=== PATIENT | male | born 2000 | race Hispanic/Latino ===

== ENCOUNTER 2019-06-02 12:08 | Emergency (ER) | payer OTHER ==
[2019-06-02] MEDS ORDERED: ONDANSETRON 4 MG/2 ML VIAL ONE (12:27)
[2019-06-02] MEDS ORDERED: MORPHINE 2 MG/ML SYR ONE (12:27)
[2019-06-02] MEDS ORDERED: NA CHLORIDE 0.9% 1,000 ML ONE (12:27)
[2019-06-02 12:43] LABS: Absolute Lymphocytes (CBC) 1.1 K/uL (0.7-4.9); Basophils % 0.4 % (0-1.3); Hematocrit 46.6 % (39.6-49.0); Lymphocytes % 8.5 % (15.3-44.8); MPV 9.1 fL (7.6-11.3); RBC Red Blood Cell Count 4.87 M/uL (4.33-5.43)
[2019-06-02 13:06] LABS: ALT/SGPT 76 U/L (12-78); AST/SGOT 30 U/L (15-37); Alkaline Phosphatase 88 U/L (45-117); BUN Blood Urea Nitrogen 12 mg/dL (7-18); Bicarbonate 29 mmol/L (21-32); Bilirubin Direct 0.1 mg/dL (0-0.2); Bilirubin Total 0.5 mg/dL (0.2-1.0); Glucose Level 120 mg/dL (74-106); Lipase 83 U/L (73-393); Potassium 3.6 mmol/L (3.5-5.1); Protein, Total 7.6 g/dL (6.4-8.2); Sodium Level 140 mmol/L (136-145)
--- NOTE | 2019-06-02 15:11 | RAD REPORT ---
EXAM DESCRIPTION: CTAbdomen Pelvis W Contrast - 06/02/2019 3:04 pm CLINICAL HISTORY: Abdominal pain. rule out appendicitis COMPARISON: <Comparisons> TECHNIQUE: Biphasic CT imaging of the abdomen and pelvis was performed with 100 ml non-ionic IV cont rast. All CT scans are performed using dose optimization technique as appropriate and may include automated exposure control or mA/KV adjustment according to patient size. FINDINGS: The lung bases are clear. The liver, spleen, pancreas, adrenal glands and kidneys are within normal limits. No bowel obstruction, free air, free fluid or abscess. The appendix is normal. No evidence of signi ficant lymphadenopathy. No suspicious bony findings. IMPRESSION: No acute intra-abdominal or pelvic finding.
--- NOTE | 2019-06-02 15:18 | ER ---
Nurse's Notes [facility] Name: Joe Steiner Age: 18 yrs Sex: Male : 2000 Arrival Date: 06/02/2019 Time: 12:09 Bed 20 Private MD: Diagnosis: Diarrhea, unspecified;Lower abdominal pain, unspecified;Enteritis Presentation: 06/02 12:12 Presenting complaint: Patient states: I woke up with bad abd pain this morning, reports la1 one episode of diahhrea. Transition of care: patient was not received from another setting of care. Onset of symptoms was June 02, 2019. Risk Assessment: Do you want to hurt yourself or someone else? Patient reports no desire to harm self or others. Initial Sepsis Screen: Does the patient meet any 2 criteria? No. Patient's initial sepsis screen is negative. Does the patient have a suspected source of infection? No. Patient's initial sepsis screen is negative. Care prior to arrival: None. 12:12 Method Of Arrival: Wheelchair la1 12:12 Acuity: OPAL 3 la1 Historical: - Allergies: 12:12 No Known Allergies; la1 - PMHx: 12:12 Asthma; la1 - PSHx: 12:12 None; la1 - Immunization history:: Adult Immunizations up to date. - Social history:: Smoking status: Patient/guardian denies using tobacco. - Ebola Screening: : No symptoms or risks identified at this time. - Family history:: not pertinent. - Hospitalizations: : No recent hospitalization is reported. Screenin:30 Abuse screen: Denies threats or abuse. Denies injuries from another. Nutritional sv screening: No deficits noted. Tuberculosis screening: No symptoms or risk factors identified. Fall Risk None identified. Assessment: 12:25 General: Appears in no apparent distress. uncomfortable, slender, well groomed, well sv developed, Behavior is calm, cooperative, appropriate for age. Pain: Complains of pain in umbilical area and suprapubic area Pain does not radiate. Pain currently is 7 out of 10 on a pain scale. Quality of pain is described as sharp, Pain began this morning Is intermittent. Neuro: Level of Consciousness is awake, alert, obeys commands, Oriented to person, place, time, situation, Moves all extremities. Full function Speech is normal. Respiratory: Airway is patent Respiratory effort is even, unlabored, Respiratory pattern is regular, symmetrical. GI: Abdomen is flat, non-distended, Abd is soft X 4 quads Reports diarrhea. Derm: Skin is intact, Skin is pale. 13:44 Reassessment: Patient appears in no apparent distress at this time. Patient and/or sv family updated on plan of care and expected duration. Pain level reassessed. Patient is alert, oriented x 3, equal unlabored respirations, skin warm/dry/pink. Patient denies pain at this time. Patient states feeling better. Patient states symptoms have improved. 15:25 Reassessment: Patient appears in no apparent distress at this time. Patient and/or sv family updated on plan of care and expected duration. Pain level reassessed. Patient is alert, oriented x 3, equal unlabored respirations, skin warm/dry/pink. Patient denies pain at this time. Patient states feeling better. Patient states symptoms have improved. Vital Signs: 12:12 BP 139 / 92; Pulse 95; Resp 16; Temp 97.8; Pulse Ox 98% on R/A; Weight 63.5 kg; Pain la1 10; 12:45 BP 114 / 70; Pulse 64; Resp 16; Pulse Ox 100% on R/A; sv 13:43 BP 109 / 77; Pulse 88; Resp 16; Pulse Ox 99% ; sv 14:27 BP 101 / 67; Pulse 75; Resp 18; Pulse Ox 96% ; sv ED Course: 12:09 Patient arrived in ED. as 12:12 Triage completed. la1 12:13 Lobo Barrett MD is Attending Physician. rn 12:13 Arm band placed on right wrist. la1 12:22 Carmela Nunez, RADHA is Primary Nurse. sv 12:30 Patient has correct armband on for positive identification. Bed in low position. Call sv light in reach. Adult w/ patient. Pulse ox on. NIBP on. Door closed. Warm blanket given. Head of bed elevated. 12:30 Initial lab(s) drawn, by me, sent to lab. Inserted saline lock: 20 gauge in right sv antecubital area, using aseptic technique. Blood collected. Flushed right antecubital with 5 ml normal saline. 12:56 EKG done, by cardiopulmonary technologist. reviewed by Lobo Barrett MD. sm3 13:[address] Scan. sv 15:06 Patient moved back from CT. sv 15:26 No provider procedures requiring assistance completed. IV discontinued, intact, sv bleeding controlled, No redness/swelling at site. Pressure dressing applied. Administered Medications: 12:33 Drug: Zofran 4 mg Route: IVP; Site: right antecubital; sv 13:44 Follow up: Response: No adverse reaction sv 12:33 Drug: NS 0.9% 1000 ml Route: IV; Rate: 1000 ml; Site: right antecubital; sv 13:44 Follow up: Response: No adverse reaction; IV Status: Completed infusion; IV Intake: sv 1000ml 12:35 Drug: morphine 2 mg {Note: RASS 0.} Route: IVP; Site: right antecubital; sv 13:44 Follow up: Response: No adverse reaction; No change in condition; Pain is decreased; sv RASS: Alert and Calm (0) Intake: 12:58 PO: 500ml (Contrast); Total: 500ml. sv 13:44 IV: 1000ml; Total: 1500ml. sv 12:58 Called and informed Ramonita in CT pt finished contrast. sv Outcome: 15:17 Discharge ordered by . rn 15:26 Discharged to home ambulatory, with family. sv 15:26 Condition: stable 15:26 Discharge instructions given to patient, family, Instructed on discharge instructions, follow up and referral plans. medication usage, Demonstrated understanding of instructions, follow-up care, medications, Prescriptions given X 1. 15:27 Patient left the ED. sv Signatures: Carmela Nunez RN RN sv Martinez, Amelia as Nieto, Roman, MD MD rn Attema, Lee, RN RN la1 Montes, Shakira 3 Corrections: (The following items were deleted from the chart) 13:11 12:35 morphine 2 mg IVP in right antecubital sv sv
--- NOTE | 2019-06-02 15:19 | EDPHYS ---
Physician Documentation [facility] Name: Joe Steiner Age: 18 yrs Sex: Male : 2000 Arrival Date: 06/02/2019 Time: 12:09 Bed 20 Private MD: ED Physician Lobo Barrett HPI: 06/02 12:21 This 18 yrs old Male presents to ER via Wheelchair with complaints of rn Abdominal Pain. 12:21 The patient presents with abdominal pain in the periumbilical area. Onset: The rn symptoms/episode began/occurred this morning. The symptoms do not radiate. Associated signs and symptoms: Pertinent positives: diarrhea, Pertinent negatives: blood in stools, chest pain, constipation, fever, hematuria, shortness of breath, testicular pain. The symptoms are described as intermittent, sharp. Modifying factors: The symptoms are alleviated by nothing, the symptoms are aggravated by movement, touching the area. Severity of pain: At its worst the pain was moderate in the emergency department the pain is unchanged. The patient has not experienced similar symptoms in the past. The patient has not recently seen a physician. Historical: - Allergies: 12:12 No Known Allergies; la1 - PMHx: 12:12 Asthma; la1 - PSHx: 12:12 None; la1 - Immunization history:: Adult Immunizations up to date. - Social history:: Smoking status: Patient/guardian denies using tobacco. - Ebola Screening: : No symptoms or risks identified at this time. - Family history:: not pertinent. - Hospitalizations: : No recent hospitalization is reported. ROS: 12:21 Constitutional: Negative for fever, chills, and weight loss, Eyes: Negative for injury, rn pain, redness, and discharge, Cardiovascular: Negative for chest pain, palpitations, and edema, Respiratory: Negative for shortness of breath, cough, wheezing, and pleuritic chest pain, Abdomen/GI: + abd pain and diarrhea, negative for blood in stool Back: Negative for injury and pain, : Negative for injury, bleeding, discharge, and swelling, MS/Extremity: Negative for injury and deformity, Skin: Negative for injury, rash, and discoloration, Neuro: Negative for headache, weakness, numbness, tingling, and seizure. Exam: 12:21 Constitutional: This is a well developed, well nourished patient who is awake, alert, rn appears in pain, holding mid abdomen. Head/Face: Normocephalic, atraumatic. Eyes: Pupils equal round and reactive to light, extra-ocular motions intact. Lids and lashes normal. Conjunctiva and sclera are non-icteric and not injected. Cornea within normal limits. Periorbital areas with no swelling, redness, or edema. ENT: MMM Cardiovascular: Regular rate and rhythm. No pulse deficits. Respiratory: No increased work of breathing, no retractions or nasal flaring. Abdomen/GI: soft, + periumbilical tenderness, no rebound, no peritoneal signs. Skin: Warm, dry with normal turgor. Normal color with no rashes, no lesions, and no evidence of cellulitis. MS/ Extremity: Pulses equal, no cyanosis. Neurovascular intact. Full, normal range of motion. Equal circumference. Neuro: Awake and alert, GCS 15 Vital Signs: 12:12 BP 139 / 92; Pulse 95; Resp 16; Temp 97.8; Pulse Ox 98% on R/A; Weight 63.5 kg; Pain la1 7/10; 12:45 BP 114 / 70; Pulse 64; Resp 16; Pulse Ox 100% on R/A; sv 13:43 BP 109 / 77; Pulse 88; Resp 16; Pulse Ox 99% ; sv 14:27 BP 101 / 67; Pulse 75; Resp 18; Pulse Ox 96% ; sv MDM: 12:13 Patient medically screened. rn 15:16 Differential diagnosis: appendicitis, diverticulitis, enteritis. Data reviewed: vital rn signs, nurses notes, lab test result(s), radiologic studies, CT scan, and as a result, I will discharge patient. Counseling: I had a detailed discussion with the patient and/or guardian regarding: the historical points, exam findings, and any diagnostic results supporting the discharge/admit diagnosis, lab results, radiology results, the need for outpatient follow up, to return to the emergency department if symptoms worsen or persist or if there are any questions or concerns that arise at home. Response to treatment: the patient's symptoms have markedly improved after treatment, and as a result, I will discharge patient. Special discussion: Based on the patient's Hx, exam, and Dx evaluation, there is no indication for emergent surgery or inpatient Tx. It is understood by the patient/guardian that if the Sx's persist or worsen they need to return immediately for re-evaluation. I discussed with the patient/guardian in detail that at this point there is no indication for admission to the hospital. It is understood, however, that if the symptoms persist or worsen the patient needs to return immediately for re-evaluation. ED course: CT abdomen neg for appendicitis, will dc home with pcp f/u and zofran prn as likely beginning of enteritis.. 06/02 12:21 Order name: Basic Metabolic Panel; Complete Time: 13:16 rn 06/02 12:21 Order name: CBC with Diff; Complete Time: 13:16 rn 06/02 12:21 Order name: Hepatic Function; Complete Time: 13:16 rn 06/02 12:21 Order name: Lipase; Complete Time: 13:16 rn 06/02 12:21 Order name: CT Abd/Pelvis - PO and IV Contrast rn 06/02 12:21 Order name: IV Saline Lock; Complete Time: 12:36 rn 06/02 12:21 Order name: Labs collected and sent; Complete Time: 12:36 rn 06/02 12:29 Order name: EKG; Complete Time: 12:30 rn 06/02 12:29 Order name: EKG - Nurse/Tech; Complete Time: 13:03 rn Administered Medications: 12:33 Drug: Zofran 4 mg Route: IVP; Site: right antecubital; sv 13:44 Follow up: Response: No adverse reaction sv 12:33 Drug: NS 0.9% 1000 ml Route: IV; Rate: 1000 ml; Site: right antecubital; sv 13:44 Follow up: Response: No adverse reaction; IV Status: Completed infusion; IV Intake: sv 1000ml 12:35 Drug: morphine 2 mg {Note: RASS 0.} Route: IVP; Site: right antecubital; sv 13:44 Follow up: Response: No adverse reaction; No change in condition; Pain is decreased; sv RASS: Alert and Calm (0) Disposition: 06/02/19 15:17 Discharged to Home. Impression: Diarrhea, unspecified, Lower abdominal pain, unspecified, Enteritis. - Condition is Stable. - Discharge Instructions: Abdominal Pain, Adult, Diarrhea, Adult, Viral Gastroenteritis, Adult. - Prescriptions for Zofran ODT 4 mg Oral tablet,disintegrating - place 1 tablet by TRANSLINGUAL route every 8 hours As needed; 20 tablet. - Medication Reconciliation Form, Thank You Letter, Antibiotic Education, Prescription Opioid Use form. - Follow up: Private Physician; When: As needed; Reason: Recheck today's complaints, Re-evaluation by your physician. - Problem is new. - Symptoms have improved. Signatures: Dispatcher [employer] Carmela Raphael RN RN sv Nieto, Roman, MD MD rn Attema, Lee, RN RN la1 Corrections: (The following items were deleted from the chart) 15:27 15:17 06/02/2019 15:17 Discharged to Home. Impression: Diarrhea, unspecified; Lower sv abdominal pain, unspecified; Enteritis. Condition is Stable. Forms are Medication Reconciliation Form, Thank You Letter, Antibiotic Education, Prescription Opioid Use. Follow up: Private Physician; When: As needed; Reason: Recheck today's complaints, Re-evaluation by your physician. Problem is new. Symptoms have improved. rn
--- NOTE | 2019-06-02 15:59 | EKG ---
Test Date: 2019-06-02 Test Time: 12:44:01 Entry Level Lab Technician: ZA MEASUREMENT RESULTS: Intervals: Rate: 56 MO: 134 QRSD: 88 QT: 376 QTc: 362 [place]: P: -14 MO: 134 QRS: 76 T: 48 INTERPRETIVE STATEMENTS: Sinus bradycardia Otherwise normal ECG No previous ECG available for comparison Electronically Signed On 06-02-19 15:58:04 CDT by Erickson Matthews
== END 2019-06-02 15:27 | disposition home or self-care (01) ==
LOC: ER 12:08
DX: K52.9 Noninfective gastroenteritis and colitis, unspecified (principal)
CPT/HCPCS: 96361; 93005; 85025; 80048; 36415; 80076; 83690; 74177; 96375; 96374; Q9967; J2270; J7030; J2405

== ENCOUNTER 2020-07-15 10:49 | Emergency (ER) | payer OTHER ==
--- NOTE | 2020-07-15 11:49 | RAD REPORT ---
EXAM DESCRIPTION: CT - Head Brain Wo Cont - 07/15/2020 11:37 am CLINICAL HISTORY: Headache COMPARISON: None. TECHNIQUE: Computed axial tomography of the head was obtained. IV contrast was not requested. All CT scans are performed using dose optimization technique as appropriate and may include automated exposure control or mA/KV adjustment according to patient size. FINDINGS: An intracranial bleed is not seen . The ventricles are normal in caliber. No extra-axial fluid collection is noted. Fluid within the sinuses/ mastoids is not seen. IMPRESSION: No acute intracranial abnormality is seen. If patient's symptoms persist MRI of the bra in would be recommended.
[2020-07-15] MEDS ORDERED: DIPHENHYDRAMINE 50 MG/ML VIAL ONE (11:59)
[2020-07-15] MEDS ORDERED: METOCLOPRAMIDE 10 MG/2mL INJ ONE (11:59)
--- NOTE | 2020-07-15 12:20 | EDPHYS ---
Physician Documentation [facility] Name: Joe Steiner Age: 20 yrs Sex: Male : 2000 Arrival Date: 07/15/2020 Time: 10:57 Bed 13 Private MD: ED Physician Gerhard Potts HPI: 07/15 12:13 This 20 yrs old Male presents to ER via Wheelchair with complaints of jr8 Headache, Taste Blood in mouth. 12:13 The patient complains of pain to the forehead. The patient describes the headache as jr8 throbbing. Onset: The symptoms/episode began/occurred acutely, yesterday. Associated signs and symptoms: Pertinent positives: dizziness, taste disturbance . Severity of symptoms: At its worst the pain was moderate. The patient has not experienced similar symptoms in the past. The patient has not recently seen a physician. Historical: - Allergies: 11: No Known Allergies; ll1 - PMHx: 11: Asthma; ll1 - PSHx: 11: None; ll1 - Immunization history:: Flu vaccine is not up to date. - Social history:: Smoking status: Patient denies any tobacco usage or history of. Patient/guardian denies using alcohol, street drugs. ROS: 12:13 Eyes: Negative for injury, pain, redness, and discharge, Neck: Negative for injury, jr8 pain, and swelling, Cardiovascular: Negative for chest pain, palpitations, and edema, Respiratory: Negative for shortness of breath, wheezing, and pleuritic chest pain. Positive for cough Abdomen/GI: Negative for abdominal pain, nausea, vomiting, diarrhea, and constipation, Back: Negative for injury and pain. 12:13 MS/Extremity: Negative for injury and deformity, Skin: Negative for injury, rash, and discoloration, Neuro: Negative for headache, weakness, numbness, tingling, and seizure. 12:13 ENT: Positive for rhinorrhea. Exam: 12:13 Eyes: Pupils equal round and reactive to light, extra-ocular motions intact. Lids and jr8 lashes normal. Conjunctiva and sclera are non-icteric and not injected. Cornea within normal limits. Periorbital areas with no swelling, redness, or edema. ENT: Nares patent. No nasal discharge, no septal abnormalities noted. Tympanic membranes are normal and external auditory canals are clear. Oropharynx with no redness, swelling, or masses, exudates, or evidence of obstruction, uvula midline. Mucous membranes moist. Neck: Trachea midline, no thyromegaly or masses palpated, and no cervical lymphadenopathy. Supple, full range of motion without nuchal rigidity, or vertebral point tenderness. No Meningismus. Cardiovascular: Regular rate and rhythm with a normal S1 and S2. No gallops, murmurs, or rubs. Normal PMI, no JVD. No pulse deficits. Respiratory: Lungs have equal breath sounds bilaterally, clear to auscultation and percussion. No rales, rhonchi or wheezes noted. No increased work of breathing, no retractions or nasal flaring. Abdomen/GI: Soft, non-tender, with normal bowel sounds. No distension or tympany. No guarding or rebound. No evidence of tenderness throughout. Back: No spinal tenderness. No costovertebral tenderness. Full range of motion. Skin: Warm, dry with normal turgor. Normal color with no rashes, no lesions, and no evidence of cellulitis. MS/ Extremity: Pulses equal, no cyanosis. Neurovascular intact. Full, normal range of motion. Neuro: Awake and alert, GCS 15, oriented to person, place, time, and situation. Cranial nerves II-XII grossly intact. Motor strength 5/5 in all extremities. Sensory grossly intact. Cerebellar exam normal. Normal gait. Vital Signs: 10:59 Resp 17; Weight 65.77 kg; Pain 5/10; ll1 11:07 BP 115 / 85; Pulse 57; Resp 16; Temp 98.2; Pulse Ox 97% ; Pain 5/10; ll1 MDM: 11:06 Patient medically screened. jr8 12:13 Data reviewed: vital signs, nurses notes, radiologic studies, CT scan. Data jr8 interpreted: Pulse oximetry: on room air is 97 %. Interpretation: normal. Counseling: I had a detailed discussion with the patient and/or guardian regarding: the historical points, exam findings, and any diagnostic results supporting the discharge/admit diagnosis, radiology results, the need for outpatient follow up, a family practitioner, to return to the emergency department if symptoms worsen or persist or if there are any questions or concerns that arise at home. Response to treatment: the patient's symptoms have markedly improved after treatment. 07/15 11:15 Order name: COVID-19 jr8 07/15 11:15 Order name: CT Head Brain wo Cont; Complete Time: 11:53 jr8 07/15 11:15 Order name: IV; Complete Time: 11:31 8 Administered Medications: 11:56 Drug: Benadryl 12.5 mg Route: IVP; Site: right antecubital; ll1 11:57 Drug: Reglan 10 mg Route: IVP; Site: right antecubital; ll1 Disposition: 17:05 Co-signature as Attending Physician, Gerhard Potts MD I agree with the assessment and kdr plan of care. Disposition: 07/15/20 12:19 Discharged to Home. Impression: Migraine with aura. - Condition is Stable. - Discharge Instructions: Migraine Headache. - Work release form, Medication Reconciliation Form, Thank You Letter, Antibiotic Education, Prescription Opioid Use form. - Follow up: Private Physician; When: 2 - 3 days; Reason: Recheck today's complaints, Continuance of care, Re-evaluation by your physician. - Problem is new. - Symptoms have improved. Signatures: Dispatcher [employer] EDMS Gerhard Potts MD MD kdr Tati Sandhu RN RN iw Joseph Olmedo PA PA jr8 Julius Castellon RN RN ll1 Corrections: (The following items were deleted from the chart) 12:41 12:19 07/15/2020 12:19 Discharged to Home. Impression: Migraine with aura. Condition is iw Stable. Forms are Medication Reconciliation Form, Thank You Letter, Antibiotic Education, Prescription Opioid Use. Follow up: Private Physician; When: 2 - 3 days; Reason: Recheck today's complaints, Continuance of care, Re-evaluation by your physician. Problem is new. Symptoms have improved. jr8
--- NOTE | 2020-07-15 12:20 | ER ---
Nurse's Notes [facility] Name: Joe Steiner Age: 20 yrs Sex: Male : 2000 Arrival Date: 07/15/2020 Time: 10:57 Bed 13 Private MD: Diagnosis: Migraine with aura Presentation: 07/15 10:59 Chief complaint: Patient states: Taste of blood in mouth since yesterday. + WILL today. ll1 Chills. No N/V/D. Coronavirus screen: Client denies travel out of the [place] in the last 14 days. chills, diarrhea, fatigue, headache, runny nose, shaking with chills, Client presents with at least one sign or symptom that may indicate coronavirus-19. Standard/surgical mask placed on the client. Ebola Screen: Patient denies travel to an Ebola-affected area in the 21 days before illness onset. Initial Sepsis Screen: Does the patient meet any 2 criteria? No. Patient's initial sepsis screen is negative. Risk Assessment: Do you want to hurt yourself or someone else? Patient reports no desire to harm self or others. Onset of symptoms was July 14, 2020. 10:59 Method Of Arrival: Wheelchair ll1 10:59 Acuity: OPAL 4 ll1 11:05 Initial Sepsis Screen: Does the patient have a suspected source of infection? No. iw Patient's initial sepsis screen is negative. 11:27 Acuity: OPAL 3 iw Triage Assessment: 11:30 Headache History: The patient has had previous headaches and this one is similar to iw previous episodes. General: Appears in no apparent distress. Behavior is calm, cooperative. Pain: Complains of pain in forehead Pain currently is 5 out of 10 on a pain scale. Quality of pain is described as Pain began 2-3 days ago. Also complains of no other associated symptoms. Historical: - Allergies: 11:01 No Known Allergies; ll1 - PMHx: 11: Asthma; ll1 - PSHx: 11:01 None; ll1 - Immunization history:: Flu vaccine is not up to date. - Social history:: Smoking status: Patient denies any tobacco usage or history of. Patient/guardian denies using alcohol, street drugs. Screenin:40 Abuse screen: Denies threats or abuse. Denies injuries from another. Nutritional iw screening: No deficits noted. Tuberculosis screening: No symptoms or risk factors identified. Fall Risk None identified. Assessment: 11:30 General: Appears in no apparent distress. Behavior is calm, cooperative. Pain: iw Complains of pain in forehead. Neuro: Level of Consciousness is awake, alert, obeys commands, Oriented to person, place, time, situation, Moves all extremities. Full function Reports headache. Cardiovascular: Patient's skin is warm and dry. Respiratory: Respiratory effort is even, unlabored, Respiratory pattern is regular, symmetrical. Derm: Skin is intact, is healthy with good turgor. Musculoskeletal: Range of motion: intact in all extremities. Vital Signs: 10:59 Resp 17; Weight 65.77 kg; Pain 5/10; ll1 11:07 BP 115 / 85; Pulse 57; Resp 16; Temp 98.2; Pulse Ox 97% ; Pain 5/10; ll1 ED Course: 10:57 Patient arrived in ED. ds1 11:01 Triage completed. ll1 11:01 Arm band placed on Patient placed in an exam room, on a stretcher. ll1 11:01 Patient has correct armband on for positive identification. iw 11:02 Tati Sandhu, RN is Primary Nurse. iw 11:05 Gerhard Potts MD is Attending Physician. kdr 11:06 [facility] jr8 11:30 Inserted saline lock: 20 gauge in right antecubital area, using aseptic technique. mt Blood collected. 11:36 CT Head Brain wo Cont In Process Unspecified. EDMS 12:40 No provider procedures requiring assistance completed. IV discontinued, intact, iw bleeding controlled, No redness/swelling at site. Pressure dressing applied. Administered Medications: 11:56 Drug: Benadryl 12.5 mg Route: IVP; Site: right antecubital; ll1 11:57 Drug: Reglan 10 mg Route: IVP; Site: right antecubital; ll1 Outcome: 12:19 Discharge ordered by . jr8 12:40 Discharged to home ambulatory. iw 12:40 Condition: good 12:40 Discharge instructions given to patient, Instructed on discharge instructions, follow up and referral plans. Demonstrated understanding of instructions, follow-up care, medications. 12:41 Patient left the ED. iw Addendum: 07/18/2020 11:44 Addendum: COVID-19 Result: Negative result given to RN to notify pt. Attempted to s s contact pt regarding negative COVID-19 swab results. Left voice mail. Signatures: Dispatcher [employer] Gerhard Guerrier MD MD [facility] Juan, Olesya ds1 Tati Sandhu RN RN iw Cristy Robbins RN RN Joseph Puente PA PA jr8 Thompson, Moriah mt Lewis, Lynsay RN RN ll1
[2020-07-15 12:46] VITALS: BP 115/85; TEMP 98.2; O2SAT 97
== END 2020-07-15 12:41 | disposition home or self-care (01) ==
LOC: ER 10:49
DX: G43.109 Migraine with aura, not intractable, without status migrainosus (principal); Z20.828 Contact with and (suspected) exposure to other viral communicable diseases
CPT/HCPCS: 70450; 96375; 96374; 99284; U0002; J2765; J1200

== ENCOUNTER 2020-12-27 20:01 | Emergency (ER) | payer OTHER ==
[2020-12-27 20:39] LABS: Basophils % 0.8 % (0-1.3); Hematocrit 43.3 % (39.6-49.0); MPV 9.1 fL (7.6-11.3); RBC Red Blood Cell Count 4.58 M/uL (4.33-5.43)
[2020-12-27] MEDS ORDERED: NA CHLORIDE 0.9% 1,000 ML ONE (20:42)
[2020-12-27 20:43] LABS: Protime INR 1.12
--- NOTE | 2020-12-27 20:45 | RAD REPORT ---
EXAM DESCRIPTION: CT - Head Brain Wo Cont - 12/27/2020 8:34 pm CLINICAL HISTORY: syncope, head injury COMPARISON: Head Brain Wo Cont dated 07/15/2020 TECHNIQUE: Axial 5 mm thick images of the head were obtained without IV contrast. All CT scans are performed using dose optimization technique as appropriate and may include automated exposure control or mA/KV adjustment according to patient size. FINDINGS: No intracranial hemorrhage, mass, edema or shift of mid-line structures. No acute infarcti on changes seen. No abnormal extra-axial fluid collections. Ventricles are normal. Mastoid air cells and visualized portions of the paranasal sinuses are clear. No acute bony findings. IMPRESSION: Negative non-contrast CT head examination.
[2020-12-27 21:12] LABS: ALT/SGPT 16 U/L (12-78); AST/SGOT 12 U/L (15-37); Albumin 3.9 g/dL (3.4-5.0); Alkaline Phosphatase 84 U/L (45-117); BUN Blood Urea Nitrogen 8 mg/dL (7-18); Bicarbonate 29 mmol/L (21-32); Bilirubin Direct 0.1 mg/dL (0-0.2); Bilirubin Total 0.3 mg/dL (0.2-1.0); Glucose Level 83 mg/dL (74-106); Potassium 3.5 mmol/L (3.5-5.1); Sodium Level 141 mmol/L (136-145); Troponin (Emerg Dept Use Only) < 0.02 ng/mL (0.0-0.045)
--- NOTE | 2020-12-27 21:52 | ER ---
Nurse's Notes [facility] Name: Joe Steiner Age: 20 yrs Sex: Male : 2000 Arrival Date: 12/27/2020 Time: 20:01 Bed 3 Private MD: Diagnosis: Syncope and collapse Presentation: 12/27 20:07 Chief complaint: Patient states: [place] dizzy, then passed out. Hit his head on the way ll1 down on table. Shaking for about 30 seconds. Then woke up aggressive and altered. Coronavirus screen: Client denies travel out of the [place] in the last 14 days. At this time, the client does not indicate any symptoms associated with coronavirus-19. Ebola Screen: Patient denies travel to an Ebola-affected area in the 21 days before illness onset. Initial Sepsis Screen: Does the patient meet any 2 criteria? No. Patient's initial sepsis screen is negative. Does the patient have a suspected source of infection? No. Patient's initial sepsis screen is negative. Risk Assessment: Do you want to hurt yourself or someone else? Patient reports no desire to harm self or others. 20:07 Method Of Arrival: Wheelchair ll1 20:07 Acuity: OPAL 2 ll1 20:07 Onset of symptoms was December 27, 2020. ll1 Historical: - Allergies: 20:11 No Known Allergies; ll1 - PMHx: 20:11 Asthma; ll1 - PSHx: 20:11 None; ll1 - Immunization history:: Flu vaccine is not up to date. - Social history:: Smoking status: Patient denies any tobacco usage or history of. Screenin:24 Abuse screen: Denies threats or abuse. Denies injuries from another. Nutritional mg2 screening: No deficits noted. Tuberculosis screening: No symptoms or risk factors identified. Fall Risk IV access (20 points). Assessment: 20:24 General: Appears in no apparent distress. comfortable, Behavior is calm, cooperative. mg2 Pain: Denies pain. Neuro: Level of Consciousness is awake, alert, obeys commands, Oriented to person, place, time, situation. Cardiovascular: Capillary refill < 3 seconds Patient's skin is warm and dry. Respiratory: Airway is patent Respiratory effort is even, unlabored, Respiratory pattern is regular, symmetrical. GI: No signs and/or symptoms were reported involving the gastrointestinal system. : No signs and/or symptoms were reported regarding the genitourinary system. EENT: No signs and/or symptoms were reported regarding the EENT system. Derm: Skin is intact, is healthy with good turgor, Skin is pink, warm \T\ dry. normal. Musculoskeletal: Circulation, motion, and sensation intact. Capillary refill < 3 seconds. 21:38 Reassessment: Patient appears in no apparent distress at this time. Patient is alert, mg2 oriented x 3, equal unlabored respirations, skin warm/dry/pink. encourage to give urine sample. awaiting for review. Vital Signs: 20:07 BP 95 / 64; Pulse 50; Resp 17; Temp 98.0; Pulse Ox 100% ; Weight 65.77 kg; Height 5 ft. ll1 6 in. (167.64 cm); Pain 3/10; 20:23 BP 101 / 69; Pulse 55; Resp 18; Pulse Ox 100% on R/A; mg2 22:02 BP 122 / 59; Pulse 58; Resp 18; Temp 98; Pulse Ox 100% on R/A; rr5 20:07 Body Mass Index 23.40 (65.77 kg, 167.64 cm) ll1 ED Course: 20:01 Patient arrived in ED. cl3 20:10 Myron Joyner PA is PHCP. jmm 20:10 Willis Waller MD is Attending Physician. m 20:10 Triage completed. ll1 20:11 Jose Enriquez, RN is Primary Nurse. rr5 20:11 Arm band placed on Patient placed in an exam room, on a stretcher. ll1 20:20 Inserted saline lock: 20 gauge in right antecubital area, using aseptic technique. mg2 Blood collected. 20:25 Patient has correct armband on for positive identification. mg2 20:25 No provider procedures requiring assistance completed. mg2 20:27 Placed in gown. Side rails up X2. Seizure precautions initiated. care team assistant on. rr5 Pulse ox on. NIBP on. 20:27 EKG done, by ED staff, reviewed by Myron CHIANG. rr5 21:51 Lester Ackerman MD is Referral Physician. jmm 21:51 Maynor Franklin MD is Referral Physician. jmm 22:03 IV discontinued, intact, bleeding controlled, No redness/swelling at site. Pressure rr5 dressing applied. Administered Medications: 20:25 Drug: NS 0.9% 1000 ml Route: IV; Rate: 1 bolus; Site: right antecubital; mg2 22:03 Follow up: Response: No adverse reaction; IV Status: Completed infusion; IV Intake: rr5 1000ml Intake: 22:03 IV: 1000ml; Total: 1000ml. rr5 Outcome: 21:51 Discharge ordered by MD. fadia 22:03 Discharged to home ambulatory, with family. rr5 22:03 Condition: stable 22:03 Discharge instructions given to patient, family, Instructed on discharge instructions, follow up and referral plans. Demonstrated understanding of instructions, follow-up care. 22:04 Patient left the ED. rr5 Signatures: Myron Joyner PA PA jmm Gardose, Michele, RN RN mg2 Jose Enriquez RN RN rr5 Rajendra Castellon3 Julius Castellon RN RN ll1 Corrections: (The following items were deleted from the chart) 20:10 20:07 Acuity: OPAL 3 ll1 ll1
--- NOTE | 2020-12-27 21:52 | EDPHYS ---
Physician Documentation [facility] Name: Joe Steiner Age: 20 yrs Sex: Male : 2000 Arrival Date: 12/27/2020 Time: 20:01 Bed 3 Private MD: ED Physician Willis Waller HPI: 12/27 20:18 This 20 yrs old Male presents to ER via Wheelchair with complaints of Passed jmm Out Prior To Arrival. 20:18 The patient has experienced syncope. Onset: The symptoms/episode began/occurred jmm acutely, just prior to arrival. Duration: This was a single episode. Associated injury: Head/face:. Associated signs and symptoms: Pertinent negatives: abdominal pain, chest pain, shortness of breath. The patient has not experienced similar symptoms in the past. Historical: - Allergies: 20:11 No Known Allergies; ll1 - PMHx: 20:11 Asthma; ll1 - PSHx: 20:11 None; ll1 - Immunization history:: Flu vaccine is not up to date. - Social history:: Smoking status: Patient denies any tobacco usage or history of. ROS: 20:18 Constitutional: Negative for fever, chills, and weight loss, Cardiovascular: Negative jmm for chest pain, palpitations, and edema, Respiratory: Negative for shortness of breath, cough, wheezing, and pleuritic chest pain, Abdomen/GI: Negative for abdominal pain, nausea, vomiting, diarrhea, and constipation. 20:18 Neuro: Positive for syncope. 20:18 All other systems are negative. Exam: 20:18 Constitutional: This is a well developed, well nourished patient who is awake, alert, jmm and in no acute distress. Head/Face: atraumatic. Eyes: EOMI, no conjunctival erythema appreciated ENT: Moist Mucus Membranes Neck: Trachea midline, Supple Chest/axilla: Normal chest wall appearance and motion. Cardiovascular: Regular rate and rhythm. No edema appreciated Respiratory: Normal respirations, no respiratory distress appreciated Abdomen/GI: Non distended, soft Back: Normal ROM Skin: General appearance color normal MS/ Extremity: Moves all extremities, no obvious deformities appreciated, no edema noted to the lower extremities Neuro: Awake and alert, normal gait Psych: Behavior is normal, Mood is normal, Patient is cooperative and pleasant 20:21 ECG was reviewed by the Attending Physician. [facility] Vital Signs: 20:07 BP 95 / 64; Pulse 50; Resp 17; Temp 98.0; Pulse Ox 100% ; Weight 65.77 kg; Height 5 ft. ll1 6 in. (167.64 cm); Pain 3/10; 20:23 BP 101 / 69; Pulse 55; Resp 18; Pulse Ox 100% on R/A; mg2 22:02 BP 122 / 59; Pulse 58; Resp 18; Temp 98; Pulse Ox 100% on R/A; rr5 20:07 Body Mass Index 23.40 (65.77 kg, 167.64 cm) ll1 MDM: 20:16 Patient medically screened. [facility] 21:49 Data reviewed: vital signs, nurses notes. Counseling: I had a detailed discussion with [facility] the patient and/or guardian regarding: the historical points, exam findings, and any diagnostic results supporting the discharge/admit diagnosis, lab results, radiology results, the need for outpatient follow up, to return to the emergency department if symptoms worsen or persist or if there are any questions or concerns that arise at home. 21:49 ED course: Patient states feeling better and hungry. [place] syncope rules [facility] negative. Patient is advised to follow up with cardio and neuro for reevaluation. Patient otherwise given strict return precautions. Patient understood and agrees with the plan of care. . 12/27 20:14 Order name: Acetaminophen [facility] 12/27 20:14 Order name: Basic Metabolic Panel [facility] 12/27 20:14 Order name: CBC with Diff [facility] 12/27 20:14 Order name: ETOH Level [facility] 12/27 20:14 Order name: Hepatic Function [facility] 12/27 20:14 Order name: PT-INR [facility] 12/27 20:14 Order name: Ptt, Activated [facility] 12/27 20:14 Order name: Salicylate [facility] 12/27 20:14 Order name: Troponin (emerg Dept Use Only) [facility] 12/27 20:35 Order name: Glucose, Ancillary Testing; Complete Time: 21:19 EDNJ 12/27 20:49 Order name: CBC with Automated Diff; Complete Time: 21:19 EDNJ 12/27 20:50 Order name: Protime (+INR); Complete Time: 21:19 EDNJ 12/27 20:50 Order name: PTT, Activated Partial Thromb; Complete Time: 21:19 EDMS 12/27 20:14 Order name: EKG; Complete Time: 20:15 [facility] 12/27 20:14 Order name: EKG - Nurse/Tech; Complete Time: 20:23 [facility] 12/27 20:14 Order name: IV Saline Lock; Complete Time: 20:23 [facility] 12/27 20:14 Order name: Labs collected and sent; Complete Time: 20:23 [facility] 12/27 20:14 Order name: CT Head Brain wo Cont [facility] 12/27 20:45 Order name: CT; Complete Time: 21:19 EDMS 12/27 21:03 Order name: Salicylates Level; Complete Time: 21: EDMS 12/27 21:03 Order name: Alcohol Serum/Plasma; Complete Time: 21: EDMS 12/27 21:15 Order name: Basic Metabolic Panel; Complete Time: 21:19 EDMS 12/27 21:15 Order name: Liver (Hepatic) Function; Complete Time: 21: EDMS 12/27 21:15 Order name: Troponin (Emerg Dept Use Only); Complete Time: : MS 12/27 21:15 Order name: Acetaminophen Level; Complete Time: 21:19 EDMS EC:21 Rate is 53 beats/min. QRS [place] is Normal. MD interval is normal. QRS interval is jmm normal. QT interval is normal. No Q waves. T waves are Normal. No ST changes noted. Reviewed by me. Administered Medications: 20:25 Drug: NS 0.9% 1000 ml Route: IV; Rate: 1 bolus; Site: right antecubital; mg2 22:03 Follow up: Response: No adverse reaction; IV Status: Completed infusion; IV Intake: rr5 1000ml Disposition: 12/28 07:15 Co-signature as Attending Physician, Willis Waller MD. [email or web address] Disposition: 12/27/20 21:51 Discharged to Home. Impression: Syncope and collapse. - Condition is Stable. - Discharge Instructions: Syncope. - Medication Reconciliation Form, Thank You Letter, Antibiotic Education, Prescription Opioid Use form. - Follow up: Lester Ackerman MD; When: 1 - 2 days; Reason: Recheck today's complaints, Continuance of care, Re-evaluation by your physician. Follow up: Maynor Franklin MD; When: 1 - 2 days; Reason: Recheck today's complaints, Continuance of care, Re-evaluation by your physician. Signatures: Dispatcher [employer] EDMyron Lee PA PA jmm Gardose, Michele, RN RN mg2 Jose Enriquez RN RN rr5 Julius Castellon RN RN ll1 Willis Waller MD MD [email or web address] Corrections: (The following items were deleted from the chart) 12/27 22:04 21:51 12/27/2020 21:51 Discharged to Home. Impression: Syncope and collapse. Condition rr5 is Stable. Forms are Medication Reconciliation Form, Thank You Letter, Antibiotic Education, Prescription Opioid Use. Follow up: Lester Ackerman; When: 1 - 2 days; Reason: Recheck today's complaints, Continuance of care, Re-evaluation by your physician. Follow up: Maynor Franklin; When: 1 - 2 days; Reason: Recheck today's complaints, Continuance of care, Re-evaluation by your physician. fadia
[2020-12-28 15:45] VITALS: O2SAT 100
[2020-12-28 15:48] VITALS: BP 122/59; TEMP 98
--- NOTE | 2020-12-29 05:16 | EKG ---
Test Date: 2020-12-27 Test Time: 20:17:33 Deck Specialist: RR MEASUREMENT RESULTS: Intervals: Rate: 53 VA: 120 QRSD: 84 QT: 396 QTc: 371 [place]: P: 6 VA: 120 QRS: 85 T: 64 INTERPRETIVE STATEMENTS: Sinus bradycardia Otherwise normal ECG Compared to ECG 06/02/2019 12:44:01 No significant changes Electronically Signed On 12-29-20 05:11:47 ENGLISH PROFESSOR by Erickson Matthews
== END 2020-12-27 22:04 | disposition home or self-care (01) ==
LOC: ER 20:01
DX: R55 Syncope and collapse (principal)
CPT/HCPCS: 96361; 93005; 85025; 80048; 36415; 80320; 80329 ×2; 85610; 82947; 80076; 85730; 84484; 70450; 96360; 99284; J7030

== ENCOUNTER 2021-07-27 05:44 | Emergency (ER) | payer OTHER ==
[2021-07-27 06:24] LABS: Urine Blood Trace-intact (Negative); Urine Glucose Negative (Negative); Urine Protein 1+ (Negative); Urine Specific Gravity >=1.030 (1.005-1.030); Urine pH 5.5 (5.0-7.0)
[2021-07-27 06:45] LABS: Hematocrit 44.7 % (39.6-49.0); MPV 8.4 fL (7.6-11.3); RBC Red Blood Cell Count 4.76 M/uL (4.33-5.43)
[2021-07-27 06:46] LABS: Absolute Lymphocytes (CBC) 0.7 K/uL (0.7-4.9); Basophils % 0.4 % (0-1.3); Lymphocytes % 4.6 % (15.3-44.8)
[2021-07-27] MEDS ORDERED: NA CHLORIDE 0.9% 500 ML ONE (06:53)
[2021-07-27] MEDS ORDERED: METOCLOPRAMIDE 10 MG/2mL INJ ONE (06:53)
[2021-07-27 06:56] LABS: Barbiturates NEGATIVE (NEGATIVE); Benzodiazepines NEGATIVE (NEGATIVE); Cocaine NEGATIVE (NEGATIVE); METHAMPHETAM NEGATIVE (NEGATIVE); Methadone NEGATIVE (NEGATIVE); Opiates NEGATIVE (NEGATIVE); Phencyclidine NEGATIVE (NEGATIVE); THC Cannibis POSITIVE (NEGATIVE)
[2021-07-27 07:00] LABS: ALT/SGPT 13 U/L (12-78); AST/SGOT 10 U/L (15-37); Albumin 4.3 g/dL (3.4-5.0); Alkaline Phosphatase 83 U/L (45-117); BUN Blood Urea Nitrogen 12 mg/dL (7-18); Bicarbonate 28 mmol/L (21-32); Bilirubin Direct 0.3 mg/dL (0-0.2); Bilirubin Total 1.2 mg/dL (0.2-1.0); Glucose Level 101 mg/dL (74-106); Lipase 42 U/L (73-393); Potassium 3.5 mmol/L (3.5-5.1); Protein, Total 9.2 g/dL (6.4-8.2); Sodium Level 139 mmol/L (136-145)
[2021-07-27 07:57] LABS: Blood Morphology Comment NOT SEEN (NOT SEEN); Platelet Estimate ADEQ
--- NOTE | 2021-07-27 08:32 | RAD REPORT ---
EXAM DESCRIPTION: CTAbdomen Pelvis W Contrast - 07/27/2021 7:26 am CLINICAL HISTORY: Abdominal pain. ABD PAIN COMPARISON: Abdomen Pelvis W Contrast dated 06/02/2019; CT ABD PELVIS W CONTRAST dated 06/26/2013 TECHNIQUE: Biphasic CT imaging of the abdomen and pelvis was performed with 100 ml non-ionic IV cont rast. All CT scans are performed using dose optimization technique as appropriate and may include automated exposure control or mA/KV adjustment according to patient size. FINDINGS: Subtle tree-in-bud opacities in the lung bases, greater on the right. The liver, spleen, pancreas, adrenal glands and kidneys are within normal limits. No bowel obstruction, free air, free fluid or abscess. Mild sigmoid diverticulosis coli without diver ticulitis. The appendix is normal. No evidence of significant lymphadenopathy. No suspicious bony findings. IMPRESSION: No acute intra-abdominal or pelvic finding.
--- NOTE | 2021-07-27 09:02 | EDPHYS ---
Physician Documentation [facility] Name: Joe Steiner Age: 21 yrs Sex: Male : 2000 Arrival Date: 07/27/2021 Time: 05:46 Bed 20 Private MD: ED Physician Jane Phipps HPI: 07/27 06:37 This 21 yrs old Male presents to ER via Ambulatory with complaints of Vomiting.jmm 06:37 The patient presents to the emergency department with nausea, vomiting, diarrhea. jmm Onset: The symptoms/episode began/occurred gradually, 2 day(s) ago. Possible causes: unknown. The symptoms are aggravated by nothing. The symptoms are alleviated by nothing. Associated signs and symptoms: Pertinent positives: diarrhea, vomiting, Pertinent negatives: fever. The patient has not experienced similar symptoms in the past. Historical: - Allergies: 05:56 No Known Allergies; bs2 - Home Meds: 05:56 None [Active]; bs2 - PMHx: 05:56 Asthma; bs2 - PSHx: 05:56 None; bs2 - Immunization history:: Adult Immunizations not up to date, Client reports having NOT received the Covid vaccine. - Social history:: Smoking status: Patient denies any tobacco usage or history of. ROS: 06:37 Constitutional: Negative for fever, chills, and weight loss, Eyes: Negative for injury, jmm pain, redness, and discharge, ENT: Negative for injury, pain, and discharge, Neck: Negative for injury, pain, and swelling, Cardiovascular: Negative for chest pain, palpitations, and edema, Respiratory: Negative for shortness of breath, cough, wheezing, and pleuritic chest pain. 06:37 Abdomen/GI: Positive for vomiting, diarrhea. 06:37 All other systems are negative. Exam: 06:37 Constitutional: This is a well developed, well nourished patient who is awake, alert, jmm and in no acute distress. Head/Face: atraumatic. Eyes: EOMI, no conjunctival erythema appreciated ENT: Moist Mucus Membranes Neck: Trachea midline, Supple Chest/axilla: Normal chest wall appearance and motion. Cardiovascular: Regular rate and rhythm. No edema appreciated Respiratory: Normal respirations, no respiratory distress appreciated 06:37 Skin: General appearance color normal 06:37 Abdomen/GI: Inspection: abdomen appears normal, Bowel sounds: normal, Palpation: soft, nontender, in all quadrants. 06:37 Musculoskeletal/extremity: ROM: intact in all extremities. 06:37 Skin: Appearance: Color: normal in color. 06:37 Neuro: Motor: is normal. 06:37 Psych: Behavior/mood is pleasant, cooperative. Vital Signs: 05:53 BP 114 / 88; Pulse 106; Resp 18; Temp 98.1; Pulse Ox 99% ; Weight 68.04 kg; Height 5 bs2 ft. 5 in. (165.10 cm); Pain 2/10; 05:53 Body Mass Index 24.96 (68.04 kg, 165.10 cm) bs2 Ken Coma Score: 06:34 Eye Response: spontaneous(4). Verbal Response: oriented(5). Motor Response: obeys sj1 commands(6). Total: 15. MDM: 06:15 Patient medically screened. [facility] 08:59 Data reviewed: vital signs, nurses notes. Counseling: I had a detailed discussion with [facility] the patient and/or guardian regarding: the historical points, exam findings, and any diagnostic results supporting the discharge/admit diagnosis. 08:59 Counseling: I had a detailed discussion with the patient and/or guardian regarding: lab [facility] results, radiology results, the need for outpatient follow up, to return to the emergency department if symptoms worsen or persist or if there are any questions or concerns that arise at home. 07/27 06:18 Order name: Basic Metabolic Panel; Complete Time: 07:06 [facility] 07/27 06:18 Order name: CBC with Diff; Complete Time: 07:58 [facility] 07/27 06:18 Order name: Hepatic Function; Complete Time: 07:06 [facility] 07/27 06:18 Order name: Lipase; Complete Time: 07:06 [facility] 07/27 06:18 Order name: UDS; Complete Time: 07:06 [facility] 07/27 06:18 Order name: IV Saline Lock; Complete Time: 06:25 [facility] 07/27 06:18 Order name: Labs collected and sent; Complete Time: 06:25 [facility] 07/27 06:24 Order name: Urine Dipstick-Ancillary; Complete Time: 06:34 EDMS 07/27 06:49 Order name: SARS-COV-2 RT PCR; Complete Time: 07:49 EDMS 07/27 07:06 Order name: CT Abd/Pelvis - IV Contrast Only; Complete Time: 08:33 [facility] 07/27 07:57 Order name: Manual Differential; Complete Time: 07:58 EDMS 07/27 06:18 Order name: Urine Dipstick-Ancillary (obtain specimen); Complete Time: 06:24 [facility] 07/27 08:46 Order name: PO challenge; Complete Time: 08:53 [facility] Administered Medications: 06:29 Drug: NS 0.9% 500 ml Route: IV; Rate: bolus; Site: right antecubital; [facility] 06:29 Drug: Reglan (metoCLOPramide) 10 mg Route: IVP; Site: right antecubital; [facility] Disposition Summary: 07/27/21 09:01 Discharge Ordered Location: Home [facility] Condition: Stable [facility] Diagnosis - Vomiting jmm - Diarrhea, unspecified jmm Followup: m - With: Private Physician - When: 2 - 3 days - Reason: Recheck today's complaints, Continuance of care, Re-evaluation by your physician Discharge Instructions: - Discharge Summary Sheet jm - Diarrhea, Adult jmm - Vomiting, Adult jmm Forms: - Medication Reconciliation Form [facility] - Thank You Letter [facility] - Antibiotic Education [facility] - Prescription Opioid Use [facility] Prescriptions: - ondansetron 4 mg Oral tablet,disintegrating - place 1 tablet by TRANSLINGUAL route every 4-6 hours; 20 tablet; Refills: 0, [facility] Product Selection Permitted Signatures: Dispatcher [employer] EDTN Myron Joyner PA PA jmm Smith, Bridget, RN RN bs2 Mirtah Barreto RN RN sj1 Corrections: (The following items were deleted from the chart) 06:50 06:23 CORONAVIRUS+[email or web address] ordered. EDTN EDMS
--- NOTE | 2021-07-27 09:02 | ER ---
Nurse's Notes [facility] Name: Joe Steiner Age: 21 yrs Sex: Male : 2000 Arrival Date: 07/27/2021 Time: 05:46 Bed 20 Private MD: Diagnosis: Vomiting;Diarrhea, unspecified Presentation: 07/27 05:53 Chief complaint: Patient states: unable to eat since Saturday , vomiting, diarrhea. bs2 Coronavirus screen: diarrhea, nausea, vomiting. Ebola Screen: No symptoms or risks identified at this time. Initial Sepsis Screen: Does the patient meet any 2 criteria? No. Patient's initial sepsis screen is negative. Does the patient have a suspected source of infection? No. Patient's initial sepsis screen is negative. Risk Assessment: Do you want to hurt yourself or someone else? Patient reports no desire to harm self or others. Onset of symptoms was July 25, 2021. 05:53 Method Of Arrival: Ambulatory bs2 05:53 Acuity: OPAL 3 bs2 Triage Assessment: 05:56 General: Appears in no apparent distress. slender, well groomed, well developed, well bs2 nourished, Behavior is cooperative, appropriate for age, anxious. Pain: Complains of pain in abdomen Pain currently is 2 out of 10 on a pain scale. GI: Reports diarrhea, intolerance of fluids, intolerance of food, nausea, vomiting. Historical: - Allergies: 05:56 No Known Allergies; bs2 - Home Meds: 05:56 None [Active]; bs2 - PMHx: 05:56 Asthma; bs2 - PSHx: 05:56 None; bs2 - Immunization history:: Adult Immunizations not up to date, Client reports having NOT received the Covid vaccine. - Social history:: Smoking status: Patient denies any tobacco usage or history of. Screenin:34 Abuse screen: Denies threats or abuse. Denies injuries from another. Nutritional sj1 screening: No deficits noted. Tuberculosis screening: No symptoms or risk factors identified. Fall Risk None identified. Assessment: 06:34 General: Appears in no apparent distress. Behavior is calm, cooperative, appropriate sj1 for age. Pain: Pain does not radiate. Pain currently is 2 out of 10 on a pain scale. at worst was 7 out of 10 on a pain scale. Quality of pain is described as crampy, Pain began 2-3 days ago. Is intermittent. Neuro: No deficits noted. Cardiovascular: No deficits noted. Respiratory: No deficits noted. GI: Reports lower abdominal pain, upper abdominal pain, diarrhea, nausea, vomiting. GI: Abdomen is flat. : No deficits noted. EENT: No deficits noted. Derm: No deficits noted. Musculoskeletal: No deficits noted. 07:14 Reassessment: Patient and/or family updated on plan of care and expected duration. Pain tr6 level reassessed. assumed care of pt resting comfortably in bed. pt receiving reglan in NS bolus. pt denies need for assistance at this time. will continue to monitor. 08:53 Reassessment: Patient and/or family updated on plan of care and expected duration. Pain tr6 level reassessed. pt given crackers and water for po challenge Patient states feeling better. Vital Signs: 05:53 BP 114 / 88; Pulse 106; Resp 18; Temp 98.1; Pulse Ox 99% ; Weight 68.04 kg; Height 5 bs2 ft. 5 in. (165.10 cm); Pain 2/10; 05:53 Body Mass Index 24.96 (68.04 kg, 165.10 cm) bs2 Ector Coma Score: 06:34 Eye Response: spontaneous(4). Verbal Response: oriented(5). Motor Response: obeys sj1 commands(6). Total: 15. ED Course: 05:46 Patient arrived in ED. bp1 05:56 Triage completed. bs2 05:56 Arm band placed on right wrist. bs2 06:03 Myron Joyner PA is PHCP. jmm 06:03 Jane Phipps MD is Attending Physician. jmm 06:25 UDS Sent. sj1 06:34 Patient has correct armband on for positive identification. Placed in gown. Bed in low sj1 position. Call light in reach. Side rails up X 1. Door closed. Noise minimized. Lights dimmed. Warm blanket given. 06:34 No provider procedures requiring assistance completed. Inserted saline lock: 20 gauge sj1 in right antecubital area, using aseptic technique. Blood collected. 07:13 Lisseth Raman RN is Primary Nurse. tr6 07:26 CT Abd/Pelvis - IV Contrast Only In Process Unspecified. EDMS 09:10 IV discontinued, intact, bleeding controlled, No redness/swelling at site. Pressure tr6 dressing applied. Administered Medications: :29 Drug: NS 0.9% 500 ml Route: IV; Rate: bolus; Site: right antecubital; sj1 06:29 Drug: Reglan (metoCLOPramide) 10 mg Route: IVP; Site: right antecubital; sj1 Outcome: 09:01 Discharge ordered by . fadia 09:09 Discharged to home ambulatory. tr6 09:09 Condition: improved 09:09 Discharge instructions given to patient, Instructed on discharge instructions, follow up and referral plans. medication usage, safety practices, Demonstrated understanding of instructions, follow-up care, medications, Prescriptions given X 1. 09:10 Patient left the ED. tr6 Signatures: Dispatcher [employer] EDMS Myron Joyner PA PA jmm Paniauga, Brittany bp1 Ramnanan, Tiffany RN RN tr6 Ludivina Arizmendi, RN RN bs2 Mirtha Barreto RN RN sj1 Corrections: (The following items were deleted from the chart) 06:50 06:33 CORONAVIRUS+[email or web address] drawn and sent. sj1 EDMS
[2021-07-27 09:27] VITALS: BP 114/88; TEMP 98.1; O2SAT 99
== END 2021-07-27 09:10 | disposition home or self-care (01) ==
LOC: ER 05:44
DX: R19.7 Diarrhea, unspecified (principal); Z20.822 Contact with and (suspected) exposure to COVID-19
CPT/HCPCS: 85025; 80048; 36415; 80076; 81003; 83690; 80307; 74177; 96374; 99284; U0003; Q9967; J2765; J7040

== ENCOUNTER 2023-04-02 11:52 | Emergency (ER) | payer BC, OTHER ==
[2023-04-02 12:20] LABS: Absolute Lymphocytes (CBC) 0.7 K/uL (0.7-4.9); Hematocrit 46.4 % (39.6-49.0); Lymphocytes % 5.7 % (15.3-44.8); MCV 96.6 fL (80-100); MPV 8.2 fL (7.6-11.3)
[2023-04-02] MEDS ORDERED: ONDANSETRON 4 MG/2 ML VIAL ONE (12:22)
[2023-04-02] MEDS ORDERED: Ringers Lactate 1,000 ML IV ONE (12:22)
[2023-04-02 12:38] LABS: Albumin 4.7 g/dL (3.4-5.0); Bilirubin Total 1.4 mg/dL (0.2-1.0); Potassium 3.3 mEq/L (3.5-5.1); Protein, Total 8.5 g/dL (6.4-8.2)
--- NOTE | 2023-04-02 13:29 | RAD REPORT ---
EXAM DESCRIPTION: CT - Abdomen Pelvis W Contrast - 04/02/2023 12:57 pm CLINICAL HISTORY: abdominal pain, vomiting COMPARISON: Abdomen Pelvis W Contrast dated 07/27/2021; Abdomen Pelvis W Contrast dated 06/02/2019 ; CT ABD PELVIS W CONTRAST dated 06/26/2013 TECHNIQUE: Thin cut axial CT imaging of the abdomen and pelvis was performed following intravenous a dministration of 90 mL Isovue 300. Multiplanar reformats were generated and reviewed. All CT scans are performed using dose optimization technique as appropriate and may include automated exposure control or mA/KV adjustment according to patient size. FINDINGS: No suspicious findings in the lung bases. The liver, spleen, and pancreas show no suspicious findings. Gallbladder and biliary tree are also wi thout suspicious finding. Symmetric renal function is seen with no hydronephrosis or suspicious renal mass. No dilated bowel loops or bowel wall thickening. Appendix is unremarkable. No free air, free fluid or inflammatory stranding. No hernia, mass or bulky lymphadenopathy. The urinary bladder is without sig nificant finding. No suspicious bony findings. IMPRESSION: No acute intra-abdominal process.
--- NOTE | 2023-04-02 14:13 | RAD REPORT ---
EXAM DESCRIPTION: US - Abdomen Exam Limited - 04/02/2023 1:23 pm CLINICAL HISTORY: abdominal pain COMPARISON: Abdomen Pelvis W Contrast dated 07/27/2021 TECHNIQUE: Sonographic grayscale and color flow images of the abdomen were obtained. FINDINGS: The gallbladder demonstrates no gallstones, although there is mild layering sludge. No per icholecystic fluid or gallbladder wall thickening. The common bile duct is normal measuring 5 mm. The liver demonstrates no findings of intrahepatic biliary dilatation. IMPRESSION: Gallbladder sludge, without sonographic evidence of acute cholecystitis.
--- NOTE | 2023-04-02 14:30 | ER ---
Nurse's Notes [facility] Name: Joe Steiner Age: 22 yrs Sex: Male : 2000 Arrival Date: 04/02/2023 Time: 11:52 Bed 7 Private MD: Diagnosis: Vomiting Presentation: 04/02 11:54 Chief complaint: EMS states: toned out to patient work for N/V since this morning. ld1 Coronavirus screen: At this time, the client does not indicate any symptoms associated with coronavirus-19. Ebola Screen: No symptoms or risks identified at this time. Initial Sepsis Screen: Does the patient meet any 2 criteria? No. Patient's initial sepsis screen is negative. Does the patient have a suspected source of infection? No. Patient's initial sepsis screen is negative. Risk Assessment: Do you want to hurt yourself or someone else? Patient reports no desire to harm self or others. Onset of symptoms was April 02, 2023 at 11:56. 11:54 Method Of Arrival: EMS: [facility] ld1 11:54 Acuity: OPAL 3 ld1 Triage Assessment: 11:54 General: Appears in no apparent distress. comfortable, Behavior is calm, cooperative, ld1 appropriate for age. Pain: Denies pain. EENT: No signs and/or symptoms were reported regarding the EENT system. Neuro: Level of Consciousness is awake, alert, obeys commands, Oriented to person, place, time, situation, Appropriate for age. Cardiovascular: Capillary refill < 3 seconds Patient's skin is warm and dry. Respiratory: Airway is patent Respiratory effort is even, unlabored. GI: Abdomen is flat, non-distended, Reports nausea, vomiting. : No signs and/or symptoms were reported regarding the genitourinary system. Derm: No signs and/or symptoms reported regarding the dermatologic system. Musculoskeletal: No signs and/or symptoms reported regarding the musculoskeletal system. Historical: - Allergies: :54 No Known Allergies; ld1 - Home Meds: :54 None [Active]; ld1 - PMHx: 11:54 Asthma; ld1 - PSHx: 11:54 None; ld1 - Immunization history:: Adult Immunizations up to date, Client reports receiving the 2nd dose of the Covid vaccine. - Social history:: Smoking status: Patient reports the use of cigarette tobacco products, smokes one-half pack cigarettes per day, Patient/guardian denies using alcohol. Screenin:00 [facility] ED Fall Risk Assessment (Adult) History of falling in the last 3 months, ld1 including since admission No falls in past 3 months (0 pts). 12:00 Abuse screen: Denies threats or abuse. Denies injuries from another. Nutritional ld1 screening: No deficits noted. Tuberculosis screening: No symptoms or risk factors identified. Assessment: 11:59 Reassessment: See triage assessmen. ld1 14:01 Reassessment: Patient appears in no apparent distress at this time. No changes from ld1 previously documented assessment. Patient and/or family updated on plan of care and expected duration. Pain level reassessed. Patient is alert, oriented x 3, equal unlabored respirations, skin warm/dry/pink. Vital Signs: 11:54 BP 117 / 79; Pulse 102; Resp 16; Temp 98.2(O); Pulse Ox 100% on R/A; Weight 63.5 kg; ld1 Height 5 ft. 8 in. ; Pain 0/10; 14:01 BP 131 / 70; Pulse 73; Resp 18; Pulse Ox 100% on R/A; ld1 14:57 BP 118 / 77; Pulse 70; Resp 16; Pulse Ox 98% on R/A; mb9 15:05 BP 126 / 74; Pulse 71; Resp 18; Pulse Ox 100% on R/A; ld1 11:54 Body Mass Index 21.29 (63.50 kg, 172.72 cm) ld1 11:54 Pain Scale: Adult ld1 ED Course: 11:53 Patient arrived in ED. ld1 11:54 Myron Joyner PA is PHCP. [facility] 11:54 Lobo Barrett MD is Attending Physician. [facility] 11:54 Arm band placed on right wrist. ld1 11:56 Triage completed. ld1 12:00 Patient has correct armband on for positive identification. Bed in low position. Call ld1 light in reach. Side rails up X2. Client placed on continuous cardiac and pulse oximetry monitoring. NIBP monitoring applied. Door closed. Noise minimized. Warm blanket given. 12:00 No provider procedures requiring assistance completed. ld1 12:13 Inserted saline lock: 20 gauge in right antecubital area, using aseptic technique. ld1 Blood collected. 12:59 CT Abd/Pelvis - IV Contrast Only In Process Unspecified. EDMS 13:25 US Abdomen Limited In Process Unspecified. EDMS 14:01 Mamta Sparrow, RN is Primary Nurse. ld1 14:29 Rell Perkins MD is Referral Physician. jmm 15:05 IV discontinued, intact, bleeding controlled, No redness/swelling at site. ld1 Administered Medications: 12:17 Drug: Ondansetron IVP 4 mg Route: IVP; Site: right antecubital; ld1 12:17 Drug: Lactated Ringers Solution IV 1000 ml Route: IV; Rate: 1000 bolus; Site: right ld1 antecubital; Medication: 12:00 VIS not applicable for this client. ld1 Outcome: 14:29 Discharge ordered by . jm 15:05 Discharged to home ambulatory. ld1 15:05 Condition: stable 15:05 Discharge instructions given to patient, Instructed on discharge instructions, follow up and referral plans. medication usage, Demonstrated understanding of instructions, follow-up care, medications, Prescriptions given X 1. 15:06 Patient left the ED. ld1 Signatures: Dispatcher [employer] EDMS Myron Joyner PA PA Mamta Davisno, RN RN ld1 Anabela Draper RN RN mb9
--- NOTE | 2023-04-02 14:30 | EDPHYS ---
Physician Documentation [facility] Name: Jeo Steiner Age: 22 yrs Sex: Male : 2000 Arrival Date: 04/02/2023 Time: 11:52 Bed 7 Private MD: ED Physician Lobo Barrett HPI: 04/02 11:58 This 22 yrs old Male presents to ER via EMS with complaints of Nausea/Vomiting.jmm 11:58 The patient presents to the emergency department with nausea, vomiting. Onset: The jmm symptoms/episode began/occurred acutely, today. Possible causes: unknown. The symptoms are aggravated by nothing. The symptoms are alleviated by nothing. Associated signs and symptoms: Pertinent negatives: fever. This is a 22 year old male with a history of asthma that presents to the ED with complaints of nausea, vomiting, beginning this morning. Denies fever. Patient attributes vomiting to being out in the heat while at work. . Historical: - Allergies: 11:54 No Known Allergies; ld1 - Home Meds: 11:54 None [Active]; ld1 - PMHx: 11:54 Asthma; ld1 - PSHx: 11:54 None; ld1 - Immunization history:: Adult Immunizations up to date, Client reports receiving the 2nd dose of the Covid vaccine. - Social history:: Smoking status: Patient reports the use of cigarette tobacco products, smokes one-half pack cigarettes per day, Patient/guardian denies using alcohol. ROS: 11:58 Constitutional: Negative for fever, chills, and weight loss, Cardiovascular: Negative jmm for chest pain, palpitations, and edema, Respiratory: Negative for shortness of breath, cough, wheezing, and pleuritic chest pain. 11:58 Abdomen/GI: Positive for abdominal pain, nausea and vomiting. 11:58 All other systems are negative. Exam: 11:58 Constitutional: This is a well developed, well nourished patient who is awake, alert, jmm and in no acute distress. Head/Face: atraumatic. Eyes: EOMI, no conjunctival erythema appreciated ENT: Moist Mucus Membranes Neck: Trachea midline, Supple Chest/axilla: Normal chest wall appearance and motion. Cardiovascular: Regular rate and rhythm. No edema appreciated Respiratory: Normal respirations, no respiratory distress appreciated 11:58 Back: Normal ROM Skin: General appearance color normal MS/ Extremity: Moves all extremities, no obvious deformities appreciated, no edema noted to the lower extremities Neuro: Awake and alert Psych: Behavior is normal, Mood is normal, Patient is cooperative and pleasant 11:58 Abdomen/GI: Inspection: abdomen appears normal, Bowel sounds: normal, Palpation: soft, nontender, in all quadrants. Vital Signs: 11:54 BP 117 / 79; Pulse 102; Resp 16; Temp 98.2(O); Pulse Ox 100% on R/A; Weight 63.5 kg; ld1 Height 5 ft. 8 in. ; Pain 0/10; 14:01 BP 131 / 70; Pulse 73; Resp 18; Pulse Ox 100% on R/A; ld1 14:57 BP 118 / 77; Pulse 70; Resp 16; Pulse Ox 98% on R/A; mb9 15:05 BP 126 / 74; Pulse 71; Resp 18; Pulse Ox 100% on R/A; ld1 11:54 Body Mass Index 21.29 (63.50 kg, 172.72 cm) ld1 11:54 Pain Scale: Adult ld1 MDM: 11:58 Patient medically screened. [facility] 14:28 Differential diagnosis: Nonspecific abd pain, gastritis, cholecystitis, pancreatitis, [facility] viral gastroenteritis. Data reviewed: vital signs, nurses notes, lab test result(s), radiologic studies, CT scan, ultrasound. Consideration of Admission/Observation Patient was admitted/placed on observation. Escalation of care including admission/observation considered. I considered the following discharge prescriptions or medication management in the emergency department Medications were administered in the Emergency Department. See MAR. ED course: Patient states he feels much better. Advised follow-up with GI for further evaluation due to findings gallbladder sludge. Patient otherwise given strict return precautions. Patient understood and agrees to plan of care.. 04/02 11:59 Order name: CBC with Diff; Complete Time: 12:45 [facility] 04/02 11:59 Order name: CMP; Complete Time: 12:45 [facility] 04/02 11:59 Order name: Lipase; Complete Time: 12:45 [facility] 04/02 11:59 Order name: CPK; Complete Time: 12:45 [facility] 04/02 12:45 Order name: CT Abd/Pelvis - IV Contrast Only; Complete Time: 13:35 [facility] 04/02 12:45 Order name: US Abdomen Limited; Complete Time: 14:19 [facility] 04/02 11:59 Order name: IV Saline Lock; Complete Time: 12:13 [facility] 04/02 11:59 Order name: Labs collected and sent; Complete Time: 12:13 [facility] Administered Medications: 12:17 Drug: Ondansetron IVP 4 mg Route: IVP; Site: right antecubital; ld1 12:17 Drug: Lactated Ringers Solution IV 1000 ml Route: IV; Rate: 1000 bolus; Site: right ld1 antecubital; Disposition: 15:18 Co-signature as Attending Physician, Lobo Barrett MD I reviewed the patient's care rn provided by the Advanced Practice Provider and agree with the diagnosis and treatment plan. Disposition Summary: 04/02/23 14:29 Discharge Ordered Location: Home [facility] Condition: Stable [facility] Diagnosis - Vomiting [facility] Followup: [facility] - With: Rell Perkins MD - When: 2 - 3 days - Reason: Recheck today's complaints, Continuance of care, Re-evaluation by your physician Discharge Instructions: - Discharge Summary Sheet [facility] - Vomiting, Adult [facility] Forms: - Medication Reconciliation Form [facility] - Thank You Letter [facility] - Antibiotic Education [facility] - Prescription Opioid Use [facility] Prescriptions: - ondansetron 4 mg Oral Tablet,disintegrating - take 1 tablet by ORAL route every 4 to 6 hours As needed; 20 tablet; Refills: [facility] 0, Product Selection Permitted Signatures: Dispatcher [employer] Myron Riggs PA PA [facility] Lobo Barrett MD MD rn Sims, Lauren, RN RN ld1
[2023-04-02 16:01] VITALS: TEMP 98.2
[2023-04-02 16:06] VITALS: BP 126/74; O2SAT 100
== END 2023-04-02 15:06 | disposition home or self-care (01) ==
LOC: ER 11:52
DX: R11.10 Vomiting, unspecified (principal); F17.210 Nicotine dependence, cigarettes, uncomplicated
CPT/HCPCS: 85025; 36415; 82550; 83690; 80053; 74177; 76705; 96374; 99284; Q9967; J2405; J7120

== ENCOUNTER 2023-05-25 07:57 | Inpatient (IN) | payer BC ==
--- OUTSIDE RECORDS SUMMARY | 2023-05-25 07:24 | XMS REPORT | Continuity of Care Document ---
:2000 Author Organization [facility] t Address [address] [place] [address] [address] [place] [address] Care Team Providers Name Role Phone Pcp, Patient Does Not Have A Primary Care Physician [id number] YANETH PERALTA Attending Clinician Unavailable Yaneth Perlata DO Attending Clinician Payers Payer Name Policy Type Policy Number Effective Date Expiration Date S [facility] - [id number] 2021 00:00:00 OUT OF STATE Problems This patient has no known problems. Allergies, Adverse Reactions, Alerts Allergy Allergy Status Severity Reaction(s) Onset Inactive Treating Comm ents Source Name Type Date Date Clinician NO KNOWN Drug Active Univers ALLERGIE Class ity of S [facility] Social History Social Habit Start Date Stop Date Quantity Comments Source Gender identity Universit y of [facility] Sexual orientation Univer sity of [facility] Alcohol intake 2023-05-23 2023-05-23 Current University of 00:00:00 00:00:00 non-drinker of [facility] alcohol [place] (finding) History of Social 2023-05-23 2023-05-23 Univers ity of function 00:00:00 00:00:00 [facility] Tobacco use and 2013-12-03 2013-12-03 Smokeless Universit y of exposure 00:00:00 00:00:00 tobacco non-user [facility] Tobacco Comment 2013-12-03 2013-12-03 Denies smoking Unive rsity of 00:00:00 00:00:00 exposure [facility] Sex Assigned At [birth year] Universit y of 00:00:00 00:00:00 [facility] Smoking Status Start Date Stop Date Source Never smoked tobacco [facility] Medications Ordered Filled Start Stop Current Ordering Indication Dosage Frequency Signature Comments Components Source Medication Medication Date Date Medication? Clinician (SIG) Name Name iopamidol 2022- No [id number] 100mL 100 mL, Univers (ISOVUE 05-24 Intravenou ity o f 370-500 mL) 06:30: 06:30 s, ONCE, 1 [place] injection 00 :00 dose, On Medica l 100 mL 05/24/23 Branch at 0130, Routine NaCl 0.9% 2022- No 1000mL at 999 Uni vers (NS) bolus 05-24 mL/hr, ity of infusion 05:30: 06:50 1,000 mL, Jerrell as 1,000 mL 00 :00 IV Medical Infusion, Branch ONCE, 1 dose, On Sat05/24/23 at 0030, LUCIA ondansetron 2022- No 4mg 4 mg, Slow Univers (ZOFRAN 05-24 IV Push, ity of (PF)) 04:45: 04:53 ONCE, 1 [place] injection 4 00 :00 dose, On Medi keesha mg Leidy 05/23/23 Branch at 2345, LUCIA ondansetron 0 Yes [id number] 4mg Take 1 Univers 4 mg 05-24 tablet by ity of disintegrat 00:00: mouth [place] ing tablet 00 every 8 Medica l (eight) Branch hours as needed for Nausea and Vomiting (N/V). Immunizations Ordered Immunization Filled Immunization Date Status Commen ts Source Name Name Influenza Virus 2013-12-03 Completed Universit y of Vaccine (3+ yrs) 00:00:00 [facility] dical Branch HPV 2010-08-21 Completed University 00:00:00 [facility] Influenza Virus 2010-08-21 Completed Universit y of Vaccine 00:00:00 [facility] Meningococcal 2010-08-21 Completed University of Vaccine 00:00:00 [facility] TDAP 2010-08-21 Completed University 00:00:00 [facility] Influenza Virus 2009-09-29 Completed Universit y of Vaccine 00:00:00 [facility] H1n1 Vaccine 2009-09-29 Completed University o f 00:00:00 [facility] Influenza Virus 2008-08-23 Completed Universit y of Vaccine 00:00:00 [facility] Varicella 2008-08-23 Completed University of (varivax)(chicken 00:00:00 [place] [facility] pox) Branch HEPATITIS A 2007-02-28 Completed University of 00:00:00 [facility] HEPATITIS A 2006-07-30 Completed University of 00:00:00 [facility] DTAP 2003-06-10 Completed University of 00:00:00 [facility] MMR 2003-06-10 Completed University of 00:00:00 [facility] Polio (IPV/OPV) 2003-06-10 Completed Universit y of 00:00:00 [facility] Pneumococcal 7 2001-06-20 Completed University of Conjugate, PCV7 00:00:00 [facility] ical (Prevnar7) Branch Pneumococcal 7 2000-12-23 Completed University of Conjugate, PCV7 00:00:00 [facility] ical (Prevnar7) Branch DTAP 2000-09-24 Completed University of 00:00:00 [facility] Hep B, Adol or Pedi 2000-09-24 Completed Unive rsity of Dosage 00:00:00 [facility] HIB 4 Dose Schedule 2000-06-25 Completed Unive rsity of 00:00:00 [facility] MMR 2000-06-25 Completed University of 00:00:00 [facility] Polio (IPV/OPV) 2000-06-25 Completed Universit y of 00:00:00 [facility] Varicella 2000-06-25 Completed University of (varivax)(chicken 00:00:00 [place] [facility] pox) Branch Hep B, Adol or Pedi 2000-03-26 Completed Unive rsity of Dosage 00:00:00 [facility] DTAP 1999 Completed University of 00:00:00 [facility] HIB 4 Dose Schedule 1999 Completed Unive rsity of 00:00:00 [facility] Hep B, Adol or Pedi 1999 Completed Unive rsity of Dosage 00:00:00 [facility] DTAP 1999 Completed University of 00:00:00 [facility] HIB 4 Dose Schedule 1999 Completed Unive rsity of 00:00:00 [facility] Polio (IPV/OPV) 1999 Completed Universit y of 00:00:00 [facility] DTAP 1999 Completed University of 00:00:00 [facility] HIB 4 Dose Schedule 1999 Completed Unive rsity of 00:00:00 [facility] Polio (IPV/OPV) 1999 Completed Universit y of 00:00:00 [facility] Vital Signs Vital Name Observation Time Observation Value Comments Source Systolic blood 2023-05-24 06:00:00 112 mm[Hg] Univer sity of pressure [facility] Diastolic blood 2023-05-24 06:00:00 76 mm[facility]Hg] [facility] rate 2023-05-24 06:00:00 99 /min [facility] Respiratory rate 2023-05-24 06:00:00 29 /min [facility] Oxygen saturation in 2023-05-24 06:00:00 98 /min [facility] Arterial blood by [facility] Pulse oximetry [place] Body temperature 2023-05-24 04:34:00 37 Jennifer [facility] Body height 2023-05-24 04:34:00 167.6 cm [facility] Body weight 2023-05-24 04:34:00 52.708 kg [facility] BMI 2023-05-24 04:34:00 18.76 kg/m2 [facility] Procedures Procedure Date / Time Performed Performing Clinician Mary e CT ABDOMEN PELVIS W 2023-05-24 05:44:31 [facility] [place] [place] [facility] LIPASE 2023-05-24 04:48:00 Yaneth Peralta [facility] MAGNESIUM 2023-05-24 04:48:00 Yaneth Peralta [facility] COMP. METABOLIC PANEL 2023-05-24 04:48:00 Yaneth Peralta Uni [facility] ([id number]) [facility] CBC WITH DIFF 2023-05-24 04:48:00 Yaneth Peralta [facility] HIV 1/2 AG-AB WITH 2023-05-24 04:48:00 Yaneth Peralta sitsadie [facility] Branch NOTICE OF PRIVACY 2023-05-24 04:28:10 Doctor Unassigned, No Univ [facility] PRACTICES Name Medical Branch CONSENT/REFUSAL FOR 2023-05-24 04:27:39 Doctor Unassigned, No [facility] [place] [place] DIAGNOSIS AND Name Medical Branch TREATMENT Encounters Start End Encounter Admission Attending Care Care Encounter Source Date/Time Date/Time Type Type Clinicians Facility Department ID 2023-05-23 2023-05-24 Emergency X MICAELA PERALTA ERT [id number] Univers 23:38:00 01:50:00 YANETH itsadie [facility] 2023-05-23 2023-05-24 Emergency Edson [facility] [id number] Univers 23:38:00 01:50:00 Yaneth WATERS [id number] ity [facility] [id number] [facility] [id number] [place] [address] Branch Results Test Description Test Time Test Comments Results Result Comments Source CBC WITH DIFF 2023-05-24 05:54:08 Test Item Value Reference Range Interpretation Comme nts WBC (test code = 6690-2) 17.84 See_Comment H [A utomated message] The system which [employer] nerated this result transmit lowell reference range: 4.20 - 1 0.70 10*3/?L. The reference r darin was not used to interpr et this result as normal/abnor mal. RBC (test code = 789-8) 4.72 See_Comment [Au tomated message] The system which [employer] nerated this result transmit lowell reference range: 4.26 - 5 .52 10*6/?L. The reference r darin was not used to interpr et this result as normal/abnor mal. HGB (test code = 718-7) 15.6 g/dL 12.2-16.4 HCT (test code = 4544-3) 45.8 % 38.4-49.3 MCV (test code = 787-2) 97.0 fL 81.7-95.6 H MCH (test code = 785-6) 33.1 pg 26.1-32.7 H MCHC (test code = 786-4) 34.1 g/dL 31.2-35.0 RDW-SD (test code = 90824-5) 42.1 fL 38.5-51.6 RDW-CV (test code = 788-0) 11.6 % 12.1-15.4 L PLT (test code = 777-3) 260 See_Comment [Au tomated message] The system which ge nerated this result transmit lowell reference range: 150 - 32 8 10*3/?L. The reference range was not used to interpret th is result as normal/abnormal . MPV (test code = 09027-2) 9.8 fL 9.8-13.0 NRBC/100 WBC (test code = 0.0 See_Comment [ Automated message] The 7988708433) system which ge nerated this result transmit lowell reference range: 0.0 - 10 .0 /100 WBCs. The reference r darin was not used to interpr et this result as normal/abnor mal. NRBC x10^3 (test code = See_Comment [Au tomated message] The 0178547465) system which ge nerated this result transmit lowell reference range: 10*3/?L. The reference range was not u sed to interpret this result as normal/abnormal . GRAN MAT (NEUT) % (test code 89.5 % = 770-8) IMM GRAN % (test code = 0.50 % 7713096088) LYMPH % (test code = 736-9) 4.4 % MONO % (test code = 5905-5) 5.3 % EOS % (test code = 713-8) 0.1 % BASO % (test code = 706-2) 0.2 % GRAN MAT x10^3(ANC) (test 15.97 10*3/uL 1.99-6.95 H code = 6090726581) IMM GRAN x10^3 (test code = 0.09 10*3/uL 0.00-0.06 H 7318866729) LYMPH x10^3 (test code = 0.79 10*3/uL 1.09-3.23 L 731-0) MONO x10^3 (test code = 0.94 10*3/uL 0.36-1.02 742-7) EOS x10^3 (test code = 0.06-0.53 L 711-2) BASO x10^3 (test code = 0.04 10*3/uL 0.01-0.09 704-7) BANDS (test code = Increased A 3275595055) Lab Interpretation (test Abnormal code = 25632-5) [facility]-AB WITH [id number] 05:53:38 Test Item Value Reference Range Interpretation Comments HIV 0.13 Negative Semi-quantitative (test code = 83027-1) ESTRELLA (test code = Non-reactive for HIV-1 ESTRELLA) antigen and HIV-1/HIV-2 antibodies. ?No laboratory evidence of HIV infection. ?Repeat in 2-4 weeks if acute HIV infection is suspected. [facility] 05:13:54 Test Item Value Reference Range Interpretation Comments MAGNESIUM (test code = 1424608246) 1.9 mg/dL 1.7-2.4 Lab Interpretation (test code = Normal 83483-5) [facility]. METABOLIC PANEL (66019)2023-05-24 05:13:33 Test Item Value Reference Range Interpretation Comments NA (test code = 139 mmol/L 135-145 4041335254) K (test code = 3.3 mmol/L 3.5-5.0 L 8032660744) CL (test code = 98 mmol/L 98-108 7599797116) CO2 TOTAL (test code = 28 mmol/L 23-31 3535871930) AGAP (test code = 13 2-16 3645873689) BUN (test code = 14 mg/dL 7-23 7776179173) GLUCOSE (test code = 122 mg/dL 70-110 H 2019754271) CREATININE (test code = 0.76 mg/dL 0.60-1.25 1224491067) TOTAL BILI (test code = 1.6 mg/dL 0.1-1.1 H 2204324318) CALCIUM (test code = 9.5 mg/dL 8.6-10.6 1786702646) T PROTEIN (test code = 9.2 g/dL 6.3-8.2 H 1448034630) ALBUMIN (test code = 4.8 g/dL 3.5-5.0 3244072932) ALK PHOS (test code = 88 U/L 34-122 7492474037) ALTv (test code = 14 U/L 5-50 1742-6) AST(SGOT) (test code = 25 U/L 13-40 6543905195) eGFR (test code = 127.1 mL/min/1.73m2 7549904637) ESTRELLA (test code = ESTRELLA) Association of Glomerular Filtration Rate (GFR) and Staging of Kidney Disease* + --+ --+ ------+| GFR (mL/min/1.73 m2) ?| With Kidney Damage ?| ?Without Kidney Damage+ --------+ --------+ +| ?>90 ?| ?Stage one ?| ? Normal ?+ ---+ ---+ -------+| ?60-89 ?| ?Stage two ?| ? Decreased GFR ? + --+ --+ ------+| ?30-59 ?| ?Stage three ?| ? Stage three ? + --+ --+ ------+| ?15-29 ?| ?Stage four ? | ? Stage four ?+ ---+ ---+ -------+| ?<15 (or dialysis) ? ?| ?Stage five ? | ? Stage five ?+ ---+ ---+ -------+ *Each stage assumes the associated GFR level has been in effect for at least three months. ?Stages 1 to 5, with or without kidney disease, indicate chronic kidney disease. Notes: Determination of stages one and two (with eGFR >59mL/min/1.73 m2) requires estimation of kidney damage for at least three months as defined by structural or functional abnormalities of the kidney, manifested by either:Pathological abnormalities or Markers of kidney damage (including abnormalities in the composition of the blood or urine or abnormalities in imaging tests). Lab Interpretation Abnormal (test code = 71000-2) [facility]13[facility]33 Test Item Value Reference Range Interpretation Comments LIPASE (test code = 9083180663) 25 U/L 0-220 Lab Interpretation (test code = Normal 68318-2) [facility] Notes Date/Time Note Provider Source 2023-05-24 Formatting of this note might be differe nt from the original. Sweta Berumen RN [facility] 01:50:00-00:00 Awake, alert oriented X4, r espiratory even and unlabored,skin w/d color appropriate for race, moves all ext well, pt encouraged to follow up with pcp and or return as needed Pt given printed and verbal discharge instructions regarding Generalized abd pain, Leukocytosis , patient verbralized understanding and signature obtained, patient denies any other concerns. Advised to seek medical attention for new/prolon ged/worsening of symptoms, No adverse reaction to meds given in ER noted up on discharge Pt ambulated to the [facility] with steady gait Electronically signed by Sweta Berumen RN at 0 05/24/2023 3:12 AM CDT 2023-05-23 Formatting of this note might be differe nt from the original. Sasha Diamond RN [facility] 23:32:40-00:00 Pt arrived ambulatory with l ower abdomen pain x3 weeks and worse this week. Pt reportedly saw PCP and was supposed to get referral to GI but says they never sent the referral. Pt reports daily vomiting. Pt states in March he was kimmy gnosed with gallbladder sludge and has lost 40lbs since then. 2023-05-23 Formatting of this note is different from the or iginal. [facility] 23:27:00-00:00 [facility] Emergency Department Note Patient Name: Joe Steiner Date of : 2000 22 year old male Treatment Room: TX3/TX3 Primary Care Physician: No primary care provider on file. 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 He also complains of chronic nausea, vomiting a nd diarrhea throughout the p ast 3 months. No sick contacts. No fevers or chills. He does admit to a 40 pound weight loss since March. He reports he was seen in March at [facility] and diagnosed w ith gallbladder sludge. He f eels this is the cause of his symptoms. No medications for his symptoms. No history of diabetes or high blood pressure. He does smoke. No previous abdominal surgeries. Here for evaluation. Past Medical History/Immunizations: Past Medical History: Diagnosis Date Asthma Heart murmur Resolved Tetanus received in last 5 years: Unknown Allergies: No Known Allergies Past Social History: Tobacco Use Never smoked or used smokeless tobacco. Comments: Denies smoking exposure Alcohol Use No. Drug Use No. Sexual Activity Not sexually active. Past Surgical History: Past Surgical History: Procedure Laterality Date CIRCUMCISION Review of Systems: Review of Systems Constitutional: Negative for chills and fever. Respiratory: Negative for cough and shortness of breath. Cardiovascular: Negative for chest pain. Gastrointestinal: Positive for abdominal pain, d iarrhea, nausea and vomiting. Genitourinary: Negative for dysuria. Musculoskeletal: Negative for arthralgias, neck pain and neck stiffness. Skin: Negative for wound. Neurological: Negative for dizziness. Psychiatric/Behavioral: Negative for agitation. Endocrine: Negative for goiter. Physical Exam: ED Triage Vitals [05/23/23 2334] Weight 52.7 kg (116 lb 3.2 oz) Actual or estimated Actual Height 1.676 m (5' 6") BP (!) 128/94 Pulse 105 Resp 18 Temp 37 ?C (98.6 ?F) Temp source Oral SpO2 97 % Measured on Room air Physical Exam Vitals and nursing note reviewed. Constitutional: General: He is not in acute distress. Appearance: Normal appearance. He is normal karime ght. He is not ill-appearing. HENT: Head: Normocephalic and atraumatic. Mouth/Throat: Mouth: Mucous membranes are dry. Cardiovascular: Rate and Rhythm: Normal rate and regular rhythm . Pulses: Normal pulses. Pulmonary: Effort: Pulmonary effort is normal. No respirat ory distress. Breath sounds: No stridor. No wheezing or rhonc hi. Abdominal: General: There is no distension. Palpations: Abdomen is soft. There is no mass. Tenderness: There is no abdominal tenderness. T here is no guarding. Hernia: No hernia is present. Musculoskeletal: General: Normal range of motion. Cervical back: Normal range of motion and neck supple. Skin: General: Skin is warm and dry. Neurological: General: No focal deficit present. Mental Status: He is alert and oriented to pers on, place, and time. Radiology: CT ABDOMEN PELVIS W CONTRAST Final Result Exam: CT Abdomen and Pelvis With Contrast, 023 12:30 AM. Ordering Physician: YANETH PERALTA. History: Generalized abdominal pain. Comparison: None. Technique: CT abdomen and pelvis was obtained wi th intravenous contrast. CT was performed according to ALARA (As Low As R easonably Achievable). Technical Quality: Adequate. Findings: CT Abdomen: Lower Thorax: Mild bibasilar subpleural groundgl ass opacities are demonstrated. Heart size is normal. Organs: Liver, pancreas, spleen, and adrenal gla nds are normal. Biliary Tree: Gallbladder is normal. There is no pancreatic or biliary duct dilatation. Urinary Tract: Kidneys are symmetric in size. Th ere is no hydronephrosis or hydroureter. Peritoneal/Retroperitoneal: There is no free air or free fluid. There is no abdominal adenopathy. Vascular: Unremarkable. Body Wall: Unremarkable. Gastrointestinal: Moderate gaseous distention of the stomach is noted. Fluid-filled, nondilated small bowel loops are n oted. There is diffuse small bowel mucosal fold thickening. There is no evidence of bowel obstruction. Appendix is normal. Osseous: Unremarkable. CT Pelvis: Genitourinary: Urinary bladder is unremarkable. Prostate and seminal vesicles are not enlarged. Peritoneal/Extraperitoneal: There is no pelvic f ree fluid. There is no pelvic adenopathy. Osseous/Soft Tissues: Unremarkable. IMPRESSION Impression: 1. Fluid-filled, nondilated small bowel loops wi th mucosal fold thickening, suggestive of enteritis. 2. Normal appendix. No free air or free fluid. RL: [id number] End of Report Electronically signed by Alberto Pascual MD at 023 1:14 AM Lab Results: Lab Results CBC WITH DIFF - Abnormal Result Value Ref Range WBC 17.84 (*) 4.20 - 10.70 10*3/?L RBC 4.72 4.26 - 5.52 10*6/?L HGB 15.6 12.2 - 16.4 g/dL HCT 45.8 38.4 - 49.3 % MCV 97.0 (*) 81.7 - 95.6 fL MCH 33.1 (*) 26.1 - 32.7 pg MCHC 34.1 31.2 - 35.0 g/dL RDW-SD 42.1 38.5 - 51.6 fL RDW-CV 11.6 (*) 12.1 - 15.4 % PLT 260 150 - 328 10*3/?L MPV 9.8 9.8 - 13.0 fL NRBC/100 WBC 0.0 0.0 - 10.0 /100 WBCs NRBC x10^3 <0.01 10*3/?L GRAN MAT (NEUT) % 89.5 % IMM GRAN % 0.50 % LYMPH % 4.4 % MONO % 5.3 % EOS % 0.1 % BASO % 0.2 % GRAN MAT x10^3(ANC) 15.97 (*) 1.99 - 6.95 10*3/ uL IMM GRAN x10^3 0.09 (*) 0.00 - 0.06 10*3/uL LYMPH x10^3 0.79 (*) 1.09 - 3.23 10*3/uL MONO x10^3 0.94 0.36 - 1.02 10*3/uL EOS x10^3 <0.03 (*) 0.06 - 0.53 10*3/uL BASO x10^3 0.04 0.01 - 0.09 10*3/uL BANDS Increased (*) COMP. METABOLIC PANEL (27605) - Abnormal NA 139 135 - 145 mmol/L K 3.3 (*) 3.5 - 5.0 mmol/L CL 98 98 - 108 mmol/L CO2 TOTAL 28 23 - 31 mmol/L AGAP 13 2 - 16 BUN 14 7 - 23 mg/dL GLUCOSE 122 (*) 70 - 110 mg/dL CREATININE 0.76 0.60 - 1.25 mg/dL TOTAL BILI 1.6 (*) 0.1 - 1.1 mg/dL CALCIUM 9.5 8.6 - 10.6 mg/dL T PROTEIN 9.2 (*) 6.3 - 8.2 g/dL ALBUMIN 4.8 3.5 - 5.0 g/dL ALK PHOS 88 34 - 122 U/L ALTv 14 5 - 50 U/L AST(SGOT) 25 13 - 40 U/L eGFR 127.1 mL/min/1.73m2 LIPASE - Normal LIPASE 25 0 - 220 U/L MAGNESIUM - Normal MAGNESIUM 1.9 1.7 - 2.4 mg/dL HIV 1/2 AG-AB WITH REFLEX HIV 1/2 Ag-Ab with Reflex Negative Negative HIV Semi-quantitative 0.13 EKG: If EKG completed, see Procedure Note. Orders and Treatments: Orders Placed This Encounter Procedures CT ABDOMEN PELVIS W CONTRAST CBC WITH DIFF COMP. METABOLIC PANEL (35815) LIPASE MAGNESIUM HIV 1/2 AG-AB WITH REFLEX Orders Placed This Encounter Medications NaCl 0.9% (NS) bolus infusion 1,000 mL ondansetron (ZOFRAN (PF)) injection 4 mg iopamidol (ISOVUE 370-500 mL) injection 100 mL First Provider Eval: ED Events Date/Time Event User Comments 05/23/232328 Medical Screening Begins YANETH PERALTA DO -- 05/23/232328 First Provider Evaluation YANETH HERRERA DO -- No notes of EC Admission Criteria type on file. ED COURSE Diagnosis/Impression as of 05/24/23 0144 Generalized abdominal pain Leukocytosis, unspecified type Procedures: Procedures MDM: Medical Decision Making The patient presents for sharonda l for worsening umbilical pain that he has had for the past 3 months. He also admits to vomiting and diarrhea during that time. No fevers. No dysuria or hematuria. 40lb weigh t loss since March. Seen at [facility] in March and diagnosed with GB sludge. No meds for sx. VSS here in the EC. Abdomen is soft and not tender. No rebound or guarding. DDx includes PUD, GERD, pancreatitis, HIV, Will check laboratory studie s including screening the patient for HIV and covid. Will give IV fluids and antiemetics. Will continue to monitor the patient here in the EC. Final dispo pending. 0144 -the patient is doing well in the ER. His laboratory studies do show a leukocytosis of 17,000. The CT of his abdomen pelvis shows possible enteritis but no other acute intra- abdominal pathology. He is feeling better here in the ER and is okay for discharge home with PCP follow-up. Problems Addressed: Generalized abdominal pain: acute illness or inj ury Amount and/or Complexity of Data Reviewed Labs: ordered. Decision-making details documente d in ED Course. Radiology: ordered and indep endent interpretation performed. Decision-making details documented in ED Course. Risk Prescription drug management. Flowsheet Documentation: Scoring Tools: No data recorded Disposition/Condition: ED Disposition ED Disposition Disch - Home Condition Stable Comment -- Discharge Medications: Patient's Medications No medications on file Follow-up: Contact information for follow-up Ralf Nelson Specialty: PED-PEDIATRICS Relationship: PCP - Medicaid HMO [id number] [place] [id number] Electronically signed by: Yaneth Peralta DO 05/24/23 0145
[2023-05-25 08:13] LABS: Absolute Lymphocytes (CBC) 0.2 K/uL (0.7-4.9); Hematocrit 41.1 % (39.6-49.0); Lymphocytes % 1.2 % (15.3-44.8); MCV 96.8 fL (80-100); Platelets 291 thou/uL (152-406); RBC Red Blood Cell Count 4.24 M/uL (4.33-5.43)
[2023-05-25] MEDS ORDERED: NA CHLORIDE 0.9% 1,000 ML ONE ×2 (08:24→11:00)
[2023-05-25 08:27] LABS: Protime INR 1.55
[2023-05-25 08:35] LABS: Albumin 3.3 g/dL (3.4-5.0); Bilirubin Direct 0.2 mg/dL (0-0.2); Bilirubin Indirect, Calculated 0.5 mg/dL (0.2-0.8); Bilirubin Total 0.7 mg/dL (0.2-1.0); Protein, Total 8.3 g/dL (6.4-8.2); Troponin High Sensitivity 4.6 pg/mL (<58.9)
[2023-05-25 08:48] LABS: Potassium 3.4 mEq/L (3.5-5.1)
[2023-05-25] MEDS ORDERED: MORPHINE 2 MG/ML SYR ONE ×2 (08:55→10:08)
[2023-05-25] MEDS ORDERED: ONDANSETRON 4 MG/2 ML VIAL ONE (08:55)
[2023-05-25] MEDS ORDERED: NA CHLORIDE 0.9% 500 ML ONE (09:18)
--- NOTE | 2023-05-25 09:23 | RAD REPORT ---
EXAM DESCRIPTION: RAD - Chest Single View - 05/25/2023 8:43 am CLINICAL HISTORY: CHEST PAIN Chest pain. COMPARISON: <Comparisons> FINDINGS: Portable technique limits examination quality. Interstitial prominence is noted which can be seen in asthma or viral infection. The heart is normal in size. No displaced fractures.
[2023-05-25 09:24] LABS: Platelet Estimate ADEQ; White Blood Cell Scan OK (OK)
[2023-05-25 09:25] LABS: Blood Morphology Comment NOT SEEN (NOT SEEN)
--- NOTE | 2023-05-25 09:25 | RAD REPORT ---
EXAM DESCRIPTION: CTAbdomen Pelvis W Contrast - 05/25/2023 9:09 am CLINICAL HISTORY: Abdominal pain. ABD PAIN COMPARISON: <Comparisons> TECHNIQUE: Biphasic CT imaging of the abdomen and pelvis was performed with 100 ml non-ionic IV cont rast. All CT scans are performed using dose optimization technique as appropriate and may include automated exposure control or mA/KV adjustment according to patient size. FINDINGS: Mild linear opacities are present in both lung bases most likely representing atelectasis or less likely infection. The liver, spleen, pancreas, adrenal glands and kidneys are within normal limits. No bowel obstruction, free air, free fluid or abscess. The appendix is normal. No evidence of signi ficant lymphadenopathy. No suspicious bony findings. IMPRESSION: No acute intra-abdominal or pelvic finding.
--- NOTE | 2023-05-25 10:23 | RAD REPORT ---
EXAM DESCRIPTION: US - Abdomen Exam Limited - 05/25/2023 10:10 am CLINICAL HISTORY: ABD PAIN COMPARISON: <Comparisons> FINDINGS: The gallbladder demonstrates no gallstones. No pericholecystic fluid or gallbladder wall t hickening. The common bile duct is normal measuring 5 mm. The liver demonstrates no findings of intrahepatic biliary dilatation. IMPRESSION: Unremarkable examination.
--- NOTE | 2023-05-25 10:56 | EDPHYS ---
Physician Documentation [facility] Name: Joe Steiner Age: 22 yrs Sex: Male : 2000 Arrival Date: 05/25/2023 Time: 07:21 Bed 20 Private MD: ED Physician Neymar Ritter HPI: 05/25 08:17 This 22 yrs old Male presents to ER via EMS with complaints of Chest Pain. kb 08:08 Patient is a 22-year-old male with a history of asthma who presents for chest pain and kb shortness of breath. Chest pain began yesterday with shortness of breath starting this morning. Patient reports he stopped vaping on Saturday.Denies alcohol use or drug use. Patient reports abdominal pain, nausea and vomiting that started in March. Was seen here and diagnosed with gallbladder sludge, followed up with GI yesterday and was put on Cipro and Flagyl. States the abdominal pain and vomiting have continued. Denies having similar episodes of chest pain and shortness of breath in the past. . 08:17 EMS care prior to arrival includes: IV fluids, saline lock, supplemental oxygen. The kb patient has not experienced similar symptoms in the past. The patient has been recently seen by a physician: the ER physician, out of Town, 2 day(s) ago, with different complaint(s), the patient was seen for abd pain and vomiting. Historical: - Allergies: 08:09 No Known Allergies; db - PMHx: 08:09 Asthma; db - Immunization history:: Client reports receiving the 2nd dose of the Covid vaccine. - Social history:: Smoking status: Patient denies any tobacco usage or history of. ROS: 08:17 Constitutional: Negative for fever, chills, and weight loss. kb 08:17 Cardiovascular: Positive for chest pain. 08:17 Respiratory: Positive for shortness of breath. 08:17 Abdomen/GI: Positive for abdominal pain, nausea and vomiting. 08:17 All other systems are negative. Exam: 08:17 Constitutional: This is a well developed, well nourished patient who is awake, alert, kb and in no acute distress. Head/Face: Normocephalic, atraumatic. ENT: Moist Mucous membranes Cardiovascular: Regular rate and rhythm with a normal S1 and S2. No gallops, murmurs, or rubs. No pulse deficits. Skin: Warm, dry with normal turgor. Normal color. MS/ Extremity: Pulses equal, no cyanosis. Neurovascular intact. Full, normal range of motion. Neuro: Awake and alert, GCS 15, oriented to person, place, time, and situation. Moves all extremities. Normal gait. 08:17 Respiratory: the patient does not display signs of respiratory distress, Respirations: tachypnea, Breath sounds: are clear throughout. 08:17 Abdomen/GI: Inspection: abdomen appears normal, Bowel sounds: normal, Palpation: soft, in all quadrants, moderate abdominal tenderness, in all quadrants. 08:19 ECG was reviewed by the Attending Physician. kb Vital Signs: 08:00 BP 134 / 86; Pulse 128; Resp 28; Temp 98.9(O); Pulse Ox 99% on R/A; Weight 52.62 kg; db Height 5 ft. 6 in. ; 08:15 BP 132 / 73; Pulse 125; Resp 36; Pulse Ox 100% ; db 08:30 BP 137 / 71; Pulse 125; Resp 36; Pulse Ox 98% on R/A; db 10:00 BP 125 / 62; Pulse 120; Resp 34; Pulse Ox 96% on R/A; Pain 7/10; db 11:00 BP 121 / 65; Pulse 121; Resp 18; Pulse Ox 97% on R/A; db 12:40 BP 110 / 74; Pulse 111; Resp 28; Pulse Ox 98% on R/A; iw 13:00 BP 107 / 72; Pulse 105; Resp 27; Pulse Ox 96% on R/A; iw 14:00 BP 111 / 66; Pulse 103; Resp 22; Pulse Ox 95% on R/A; iw 08:00 Body Mass Index 18.72 (52.62 kg, 167.64 cm) db 10:00 Pain Scale: Adult db MDM: 08:00 Patient medically screened. kb 08:10 ED course: ED attending note: The patient is a 22-year-old male with a past medical cp3 history significant for gallstones, asthma who presents to the ED secondary to shortness of breath and mid abdominal pain that started last night. EMS history endorses patient was in atrial flutter but hemodynamically stable. On exam patient with stable blood pressure, tachycardic at 128 respiratory rate of 28 sats 100%. Lungs clear, epigastric and mid abdominal tenderness without guarding or rebound. Labs, x-ray, IV fluids, D-dimer ordered. Imaging planned.. 08:18 Data reviewed: vital signs, nurses notes. Historians other than the Patient: EMS: [facility]. Parent: mother. 10:39 Differential diagnosis: abnormal EKG, acute myocardial infarction, cholecystitis, kb Cholelithiasis gastritis, gastroesophageal reflux disease (GERD), pancreatitis, pulmonary embolus. Consideration of Admission/Observation Patient was admitted/placed on observation. Escalation of care including admission/observation considered. 10:49 Management of patient was discussed with the following: Hospitalist: Dr Barrett, requests ct chest. 10:54 Counseling: I had a detailed discussion with the patient and/or guardian regarding: the kb historical points, exam findings, and any diagnostic results supporting the discharge/admit diagnosis, lab results, radiology results, the need for further work-up and treatment in the hospital. 11:55 ED course: Severe sepsis criteria met at 1142. A (source): pneumonia (1142); B (SIRS): kb HR and RR (0800); C (organ dysfunction): lactate 3.5 (0849). 11:57 ED course: Sepsis reevaluation complete. kb 05/25 08:01 Order name: Basic Metabolic Panel; Complete Time: 08:58 kb 05/25 08:01 Order name: CBC with Diff; Complete Time: 09:30 kb 05/25 08:01 Order name: D-Dimer; Complete Time: 08:43 kb 05/25 08:01 Order name: LFT's; Complete Time: 08:58 kb 05/25 08:01 Order name: Magnesium; Complete Time: 08:58 kb 08 08:01 Order name: NT PRO-BNP; Complete Time: 08:58 kb 08 08:01 Order name: Troponin HS; Complete Time: 08:58 kb 08 08:01 Order name: Protime (+inr); Complete Time: 08:43 kb 05/25 08:01 Order name: Ptt, Activated; Complete Time: 08:43 kb 05/25 08:10 Order name: UDS; Complete Time: 12:40 kb 05/25 08:16 Order name: Blood Culture Adult (2) kb 05/25 08:16 Order name: Lactate w/ 2H reflex if indic.; Complete Time: 08:58 kb 05/25 09:25 Order name: CBC Smear Scan; Complete Time: 09:30 EDMS 05/25 10:52 Order name: Lipase; Complete Time: 11:23 kb 05/25 10:54 Order name: COVID-19 SARS RT PCR; Complete Time: 12:07 kb 05/25 12:41 Order name: Lactate Sepsis 2 HR Follow-up; Complete Time: 12:46 EDMS 05/25 14:26 Order name: Phosphorus EDMS 05/25 14:26 Order name: Troponin High Sensitivity EDMS 05/25 08:18 Order name: Chest Single View; Complete Time: 09:30 EDMS 05/25 08:43 Order name: CT Abd/Pelvis - IV Contrast Only; Complete Time: 09:30 kb 05/25 09:52 Order name: US Abdomen Limited; Complete Time: 10:24 kb 05/25 10:52 Order name: CT Chest Wo Con; Complete Time: 11:42 kb 05/25 08:01 Order name: EKG; Complete Time: 08:01 kb 05/25 13:18 Order name: CONS Physician Consult EDMS 05/25 08:01 Order name: Cardiac monitoring; Complete Time: 08:08 kb 08 08:01 Order name: EKG - Nurse/Tech; Complete Time: 08:08 kb 05/25 08:01 Order name: IV Saline Lock; Complete Time: 08:08 kb 05/25 08:01 Order name: Labs collected and sent; Complete Time: 08:08 kb 05/25 08:01 Order name: O2 Per Protocol; Complete Time: 08:08 kb 05/25 08:01 Order name: O2 Sat Monitoring; Complete Time: 08:08 kb EC:19 Rate is 102 beats/min. Rhythm is regular. QRS Lockhart is Normal. NE interval is normal at kb 122 msec. QRS interval is normal at 86 msec. QT interval is normal at 396 msec. Clinical impression: Sinus tachycardia. Administered Medications: 08:10 Drug: NS 0.9% IV 1000 ml Route: IV; Rate: 1000 ml; Site: right forearm; db 08:55 Follow up: Response: No adverse reaction; IV Status: Completed infusion; IV Intake: db 1000ml 08:48 Drug: morphine IVP or IV 2 mg Route: IVP; Infused Over: 4 mins; Site: right forearm; db 10:30 Follow up: Response: No adverse reaction db 08:48 Drug: Ondansetron IVP 4 mg Route: IVP; Site: right forearm; db 10:30 Follow up: Response: No adverse reaction db 09:20 Drug: NS 0.9% IV (30 ml/kg) 30 ml/kg Route: IV; Rate: bolus; Site: right forearm; db 14:20 Follow up: Response: No adverse reaction; IV Status: Completed infusion db 09:59 Drug: morphine IVP or IV 2 mg Route: IVP; Infused Over: 4 mins; Site: right forearm; db 14:27 Follow up: Response: No adverse reaction iw 10:48 Drug: NS 0.9% IV 1000 ml Route: IV; Rate: 125 ml/hr; Site: right forearm; db 14:27 Follow up: Response: No adverse reaction; IV Status: Completed infusion iw 10:49 Drug: metroNIDAZOLE IVPB 500 mg Volume: 100 ml; Route: IVPB; Rate: 200 ml/hr; Infused db Over: 30 mins; Site: right forearm; 12:30 Follow up: Response: No adverse reaction; IV Status: Completed infusion; IV Intake: db 100ml 10:50 Drug: Pantoprazole IVP 40 mg Route: IVP; Site: left antecubital; db 12:51 Follow up: Response: No adverse reaction db 11:48 Not Given (Physician Discretion): Ciprofloxacin IVPB 400 mg 200 ml IVPB once over 60 kb mins 12:35 Drug: Rocephin IV 1 grams Route: IV; Rate: calculated rate; Site: right forearm; db 12:51 Follow up: IV Status: Completed infusion; IV Intake: 50ml db 12:50 Drug: Zithromax IVPB 500 mg Route: IVPB; Infused Over: 1 hrs; Site: right forearm; db 14:26 Follow up: Response: No adverse reaction; IV Status: Completed infusion; IV Intake: iw 250ml Disposition: 11:18 I reviewed the patient's care provided by Advanced Practice Provider \T\ agree w/ the cp3 diagnosis \T\ care plan. I personally saw the pt \T\ performed a substantive portion of the visit, incldng all aspects of the (History/Exam/Medical Decision Making). PA/EXTERNAL GRINDER TENDER's history reviewed, patient interviewed, and examined. Disposition Summary: 05/25/23 10:56 Hospitalization Ordered Hospitalization Status: Observation kb Provider: Jose Barrett Location: Telemetry/MedSurg (observation) kb Condition: Stable kb Problem: new kb Symptoms: are unchanged kb Bed/Room Type: Standard kb Room Assignment: 218(05/25/23 14:00) eb Diagnosis - Tachycardia, unspecified kb - Chest pain, unspecified kb - Abdominal pain, Generalized kb - Nausea with vomiting, unspecified kb - Pneumonia, unspecified organism kb - Severe sepsis without septic shock kb Forms: - Medication Reconciliation Form kb - SBAR form kb Signatures: Dispatcher [employer] EDMS Karina Gomez, WENDY-C WENDY-Neymar Hernandez MD MD cp3 Breanne Siegel Danielle, RN RN Tati Joaquin RN iw Corrections: (The following items were deleted from the chart) 08:15 08:08 Patient is a 22-year-old male with a history of asthma who presents for chest kb pain and shortness of breath. Chest pain began yesterday with shortness of breath starting this morning. Patient reports he stopped vaping on Saturday. Was diagnosed with gallbladder sludge, followed up with GI yesterday and was put on Cipro and Flagyl. Denies alcohol use or drug use. Reports this is never happened in the past.. kb 08:45 08:01 Chest Single View+[id number].[email or web address] ordered. EDMS EDMS 10:55 10:49 Management of patient was discussed with the following: Hospitalist: Dr Barrett. kb kb 11:44 10:56 Elevated white blood cell count kb kb 14:00 10:56 kb eb
--- NOTE | 2023-05-25 10:56 | ER ---
Nurse's Notes [facility] Name: Joe Steiner Age: 22 yrs Sex: Male : 2000 Arrival Date: 05/25/2023 Time: 07:21 Bed 20 Private MD: Diagnosis: Tachycardia, unspecified;Chest pain, unspecified;Abdominal pain, Generalized;Nausea with vomiting, unspecified;Pneumonia, unspecified organism;Severe sepsis without septic shock Presentation: 05/25 08:00 Chief complaint: EMS states: PATIENT STARTED WITH CP YESTERDAY AND DIFFICULTY BREATHING db TODAY. COOL, PALE AND DIAPHORETIC UPON EMS ARRIVAL. PT HR 170'S TO 200 FOR EMS. GLUCOSE 118. Coronavirus screen: Client denies travel out of the [place] in the last 14 days. At this time, the client does not indicate any symptoms associated with coronavirus-19. Ebola Screen: Patient negative for fever greater than or equal to 101.5 degrees Fahrenheit, and additional compatible Ebola Virus Disease symptoms Patient denies exposure to infectious person. Patient denies travel to an Ebola-affected area in the 21 days before illness onset. No symptoms or risks identified at this time. Initial Sepsis Screen: Does the patient meet any 2 criteria? Yes Does the patient have a suspected source of infection? Yes: Acute abdominal pain. Risk Assessment: Do you want to hurt yourself or someone else? Patient reports no desire to harm self or others. Onset of symptoms was May 25, 2023. Care prior to arrival: Medication(s) given: Normal saline infusion, 200 ML IV initiated. 18 GA, in the right forearm, Glucose check: 118. 08:00 Method Of Arrival: EMS: [facility] db 08:00 Acuity: OPAL 2 db Triage Assessment: 08:09 General: Appears in no apparent distress. uncomfortable, slender, Behavior is db cooperative, agitated. Pain: Complains of pain in chest. Historical: - Allergies: 08:09 No Known Allergies; db - PMHx: 08:09 Asthma; db - Immunization history:: Client reports receiving the 2nd dose of the Covid vaccine. - Social history:: Smoking status: Patient denies any tobacco usage or history of. Screenin:09 [facility] ED Fall Risk Assessment (Adult) History of falling in the last 3 months, db including since admission No falls in past 3 months (0 pts) Confusion or Disorientation No (0 pts) Intoxicated or Sedated No (0 pts) Impaired Gait No (0 pts) Mobility Assist Device Used No (0 pt) Altered Elimination No (0 pt) Score/Fall Risk Level 0 - 2 = Low Risk Oriented to surroundings, Maintained a safe environment. Abuse screen: Denies threats or abuse. Denies injuries from another. Nutritional screening: No deficits noted. Tuberculosis screening: No symptoms or risk factors identified. Assessment: 08:09 Reassessment: Patient appears in no apparent distress at this time. Patient and/or db family updated on plan of care and expected duration. Pain level reassessed. Patient is alert, oriented x 3, equal unlabored respirations, skin warm/dry/pink. 08:27 Reassessment:. db 08:27 Reassessment: Code sepsis called. db 09:06 Reassessment: PT IS IN CT. db 11:30 Reassessment: Patient appears in no apparent distress at this time. Patient and/or iw family updated on plan of care and expected duration. Pain level reassessed. Patient is alert, oriented x 3, equal unlabored respirations, skin warm/dry/pink. General: Appears in no apparent distress. comfortable, Behavior is calm, cooperative. 12:18 Reassessment: Dr. Barrett hospitalist at bedside. iw 12:19 Reassessment: Patient appears in no apparent distress at this time. Patient and/or iw family updated on plan of care and expected duration. Pain level reassessed. Patient is alert, oriented x 3, equal unlabored respirations, skin warm/dry/pink. 13:30 Reassessment: Patient appears in no apparent distress at this time. Patient and/or db family updated on plan of care and expected duration. Pain level reassessed. Patient is alert, oriented x 3, equal unlabored respirations, skin warm/dry/pink. 14:03 Reassessment: Called to give report. 2nd floor states nurse is not ready for report and db will call back. 14:10 Reassessment: Report given to RADHA Segura. db Vital Signs: 08:00 BP 134 / 86; Pulse 128; Resp 28; Temp 98.9(O); Pulse Ox 99% on R/A; Weight 52.62 kg; db Height 5 ft. 6 in. ; 08:15 BP 132 / 73; Pulse 125; Resp 36; Pulse Ox 100% ; db 08:30 BP 137 / 71; Pulse 125; Resp 36; Pulse Ox 98% on R/A; db 10:00 BP 125 / 62; Pulse 120; Resp 34; Pulse Ox 96% on R/A; Pain 7/10; db 11:00 BP 121 / 65; Pulse 121; Resp 18; Pulse Ox 97% on R/A; db 12:40 BP 110 / 74; Pulse 111; Resp 28; Pulse Ox 98% on R/A; iw 13:00 BP 107 / 72; Pulse 105; Resp 27; Pulse Ox 96% on R/A; iw 14:00 BP 111 / 66; Pulse 103; Resp 22; Pulse Ox 95% on R/A; iw 08:00 Body Mass Index 18.72 (52.62 kg, 167.64 cm) db 10:00 Pain Scale: Adult db Vitals: 12:40 Cardiac Rhythm Assessment Regular Sinus tach. iw ED Course: 07:57 Patient arrived in ED. eb 08:00 Karina Gomez FNP-C is PHCP. kb 08:00 Neymar Ritter MD is Attending Physician. kb 08:05 Caitlyn Chatman, RADHA is Primary Nurse. db 08:06 Patient has correct armband on for positive identification. Bed in low position. Call mm9 light in reach. Side rails up X 1. Adult w/ patient. Warm blanket given. Pillow given. Client placed on continuous cardiac and pulse oximetry monitoring. NIBP monitoring applied. clinical research monitor on. Pulse ox on. NIBP on. 08:07 Initial lab(s) drawn, by ED staff, sent to lab. EKG done, by ED staff, reviewed by komal Ritter MD. Maintain EMS IV. Dressing intact. Good blood return noted. Site clean \T\ dry. 08:08 Protime (+inr) Sent. mm9 08:08 Ptt, Activated Sent. mm9 08:08 Basic Metabolic Panel Sent. mm9 08:08 CBC with Diff Sent. mm9 08:08 D-Dimer Sent. mm9 08:08 LFT's Sent. mm9 08:08 Magnesium Sent. mm9 08:08 NT PRO-BNP Sent. mm9 08:08 Troponin HS Sent. mm9 08:09 Triage completed. db 08:09 Arm band placed on Patient placed in an exam room. db 08:20 First set of blood cultures drawn by me. db 08:38 Inserted saline lock: 20 gauge in left antecubital area, using aseptic technique. Blood db collected. 08:39 Second set of blood cultures drawn by me. db 08:45 Chest Single View In Process Unspecified. EDMS 09:11 CT Abd/Pelvis - IV Contrast Only In Process Unspecified. EDMS 10:12 US Abdomen Limited In Process Unspecified. EDMS 10:56 Jose Barrett MD is Hospitalizing Provider. kb 11:27 CT Chest Wo Con In Process Unspecified. EDMS 14:29 Provided Education on: Admitted. iw 14:29 No provider procedures requiring assistance completed. Patient admitted, IV remains in iw place. Administered Medications: 08:10 Drug: NS 0.9% IV 1000 ml Route: IV; Rate: 1000 ml; Site: right forearm; db 08:55 Follow up: Response: No adverse reaction; IV Status: Completed infusion; IV Intake: db 1000ml 08:48 Drug: morphine IVP or IV 2 mg Route: IVP; Infused Over: 4 mins; Site: right forearm; db 10:30 Follow up: Response: No adverse reaction db 08:48 Drug: Ondansetron IVP 4 mg Route: IVP; Site: right forearm; db 10:30 Follow up: Response: No adverse reaction db 09:20 Drug: NS 0.9% IV (30 ml/kg) 30 ml/kg Route: IV; Rate: bolus; Site: right forearm; db 14:20 Follow up: Response: No adverse reaction; IV Status: Completed infusion db 09:59 Drug: morphine IVP or IV 2 mg Route: IVP; Infused Over: 4 mins; Site: right forearm; db 14:27 Follow up: Response: No adverse reaction iw 10:48 Drug: NS 0.9% IV 1000 ml Route: IV; Rate: 125 ml/hr; Site: right forearm; db 14:27 Follow up: Response: No adverse reaction; IV Status: Completed infusion iw 10:49 Drug: metroNIDAZOLE IVPB 500 mg Volume: 100 ml; Route: IVPB; Rate: 200 ml/hr; Infused db Over: 30 mins; Site: right forearm; 12:30 Follow up: Response: No adverse reaction; IV Status: Completed infusion; IV Intake: db 100ml 10:50 Drug: Pantoprazole IVP 40 mg Route: IVP; Site: left antecubital; db 12:51 Follow up: Response: No adverse reaction db 11:48 Not Given (Physician Discretion): Ciprofloxacin IVPB 400 mg 200 ml IVPB once over 60 kb mins 12:35 Drug: Rocephin IV 1 grams Route: IV; Rate: calculated rate; Site: right forearm; db 12:51 Follow up: IV Status: Completed infusion; IV Intake: 50ml db 12:50 Drug: Zithromax IVPB 500 mg Route: IVPB; Infused Over: 1 hrs; Site: right forearm; db 14:26 Follow up: Response: No adverse reaction; IV Status: Completed infusion; IV Intake: iw 250ml Medication: 14:29 VIS not applicable for this client. iw Intake: 08:55 IV: 1000ml; Total: 1000ml. db 12:30 IV: 100ml; Total: 1100ml. db 12:51 IV: 50ml; Total: 1150ml. db 14:26 IV: 250ml; Total: 1400ml. iw Outcome: 10:56 Decision to Hospitalize by Provider. kb 14:29 Admitted to ER Hold. Please see [facility] for further documentation. iw 14:29 Condition: stable 14:29 Instructed on the need for admit. 14:32 Patient left the ED. iw Signatures: Dispatcher [employer] Karina Holguin, ELECTRIC PILE DRIVER OPERATOR-C ELECTRIC PILE DRIVER OPERATOR-Tati Villa RN RN iw Breanne Siegel Danielle, RN RN db Janice Jo mm9 Corrections: (The following items were deleted from the chart) 08:27 08:00 Ebola Screen: Patient negative for fever greater than or equal to 101.5 degrees db Fahrenheit, and additional compatible Ebola Virus Disease symptoms Patient denies exposure to infectious person. Patient denies travel to an Ebola-affected area in the 21 days before illness onset. No symptoms or risks identified at this time. db 08:27 08:00 Initial Sepsis Screen: Does the patient meet any 2 criteria? No. Patient's db initial sepsis screen is negative. Does the patient have a suspected source of infection? No. Patient's initial sepsis screen is negative. db
[2023-05-25] MEDS ORDERED: PANTOPRAZOLE 40 MG INJ ONE (10:59)
[2023-05-25] MEDS ORDERED: CIPROFLOXACIN 400mg IV 400 MG/200 ML BAG IV ONE (10:59)
[2023-05-25] MEDS ORDERED: METRONIDAZOLE 500mg IVPB 500 MG/100 ML BAG IV ONE (11:00)
--- NOTE | 2023-05-25 11:36 | RAD REPORT ---
EXAM DESCRIPTION: CT - Thorax Wo Con CLINICAL HISTORY: Chest pain Chest pain;Dyspnea COMPARISON: Abdomen Pelvis W Contrast dated 05/25/2023 FINDINGS: Moderate bilateral pulmonary opacities are present, largely linear in nature in both lower lobes peripherally. This favors infection, nonspecific. No pleural thickening or pleural effusion. N o pneumothorax. No axillary, mediastinal or hilar adenopathy. No concerning bony finding. No gross upper abdominal finding. All CT scans are performed using dose optimization technique as appropriate and may include automated exposure control or mA/KV adjustment according to patient size. IMPRESSION: Moderate linear opacities are present in both lung bases along the periphery, likely rep resenting infection.
--- NOTE | 2023-05-25 12:03 | P.HP ---
Certification for Inpatient Patient admitted to: Inpatient With expected LOS: >2 Midnights Practitioner: I am a practitioner with admitting privileges, knowledge of patient current condition, hospital course, and medical plan of care. Services: Services provided to patient in accordance with Admission requirements found in Title 42 Section 412.3 of the Code of Federal Regulations Patient History Date of Service: 05/25/23 Reason for admission: sepsis, Chest pain, SOB History of Present Illness: 22 yo M, PMH: Asthma Patient presented to the ED with fever, chest pain, shortness of breath. Labwork done significant for leukocytosis (18.2). Patient developed a fever 3 days ago, associated with chills, sweats. He was recently seen at [facility] ~1-2 days ago where he was noted to have leukocytosis (~29), and subsequently discharged on empiric Cipro/Flagyl. CT chest in the ED reports moderate linear opacities are present in both lung bases, likely representing infection. Patient also reports worsening nausea/vomiting/diarrhea over the last ~2 months, now occurring daily, associated with lower abdominal pain. Symptoms are aggravated with eating/drinking, and laying on either side worsens abdominal pain. Alleviated by nothing. Denies difficulty swallowing. Reports throwing up "stomach acid and whatever I ate/drank" ~10 minutes after any volume of intake. Can only tolerate sips of water. Denies bloody emesis. Patient noted to smoke marijuana everyday for ~4 years, recently quit this past Saturday. Reports losing ~30-40lbs in the last 2-[address] abdomen, abdominal u/s in ED were both negative for any acute findings. Allergies No Known Allergies Allergy (Unverified 12/04/16 20:15) - Past Medical/Surgical History -: Asthma Past Surgical History: Reviewed- Non-Contributory - Family History Family History: Reviewed- Non-Contributory - Social History Smoking Status: Never smoker Alcohol use: No CD- Drugs: Yes Place of Residence: Home Review of Systems 10-point ROS is otherwise unremarkable Physical Examination - Studies Laboratory Data (last 24 hrs) 05/25/23 05/25/23 05/25/23 08:05 08:05 08:05 WBC 18.20 H Hgb 13.3 L Hct 41.1 Plt Count 291 PT 17.0 H INR 1.55 APTT 35.9 Sodium Potassium BUN Creatinine Glucose Magnesium Total Bilirubin AST ALT Alkaline Phosphatase Lipase 11 L 05/25/ 08:05 WBC Hgb Hct Plt Count PT INR APTT Sodium 137 Potassium 3.4 L BUN 11 Creatinine 1.00 Glucose 161 H Magnesium 2.0 Total Bilirubin 0.7 AST 23 ALT 12 L Alkaline Phosphatase 75 Lipase Assessment and Plan - Advance Directives Does patient have a Living Will: No Does patient have a Durable POA for Healthcare: No - Code Status/Comfort Care Code Status Assessed: Yes Code Status: Full Code Physician Review Additional Text: Physical Exam: GEN: Alert, oriented, thin, NAD HEENT: Normal conjunctiva, sclera anicteric CV: Sinus tachycardia, no edema Pulm: Non-labored respirations on room air, mild crackles at bases ABD: Soft, diffuse abdominal tenderness, most tender in periumbilical area, nondistended MSK: No joint tenderness, no contractions Integumentary: No rashes, no lesions Neuro: Normal speech, normal affect Problem List Sepsis secondary to bilateral pneumonia Chest Pain Sinus Tachycardia Intractable Nausea/Vomiting x 2 months Lower abdominal pain Severe Protein-Calorie Malnutrition ~30-40lb weight loss Hypophastemia Marijuana dependence h/o asthma Sepsis secondary to bilateral pneumonia unclear etiology, possible aspiration given daily vomiting Discharged on Cipro/Flagyl at [facility] ~1-[address] Chest (05/25): Moderate linear opacities in both lung bases along the periphe ry, likely representing infection Started on empiric Rocephin/Zithromycin (05/25-) Currently Afebrile, +leukocytosis (18.2) reportedly WBC: 29k at [place], ~2 days ago Chest Pain Sinus Tachycardia suspect secondary to sepsis / pneumonia on review of EMS history, noted possible a-flutter; strips reviewed by ED - reportedly sinus tachycardia, no noted afib/flutter Trend troponins, monitor on telemetry check EKG D-dimer: 305 Intractable Nausea/Vomiting Lower abdominal pain Severe Protein-Calorie Malnutrition ~40lb weight loss Hypophastemia reports progressively worsening n/v for ~2 months; ~30-40lb weight loss since February 2023 daily vomiting, ~10min after trying to eat anything, regardless of volume Unclear etiology - IBS/cyclical vomiting syndrome - reports daily marijuana use for ~4yrs, possible gastroparesis/delayed emptying CT abdomen (05/25): No acute intra-abdominal or pelvic finding Abdominal u/s (05/25): unremarkable General surgery consulted - Dr. Cano regarding intractable n/v and pain Gastric emptying study ordered will need EGD/C-scope at some point, currently scheduled for 1 month from now as outpatient, may benefit from inpatient scope, pending workup clear liquids IVF for now, transition to PPN PICC ordered for TPN [employer] consulted PRN pain medication, PRN antiemetics monitor closely for refeeding syndrome PPN at low rate, slow uptitration Marijuana Abuse reports daily use for past ~4 years. States he quit this past saturday. Recommended to continue cessation. Code: Full Dispo: Home, ~3-4 days Time Spent Managing Pts Care (In Minutes): 70
[2023-05-25 12:37] LABS: Barbiturates NEGATIVE (NEGATIVE); Benzodiazepines NEGATIVE (NEGATIVE); Cocaine NEGATIVE (NEGATIVE); METHAMPHETAM NEGATIVE (NEGATIVE); Methadone NEGATIVE (NEGATIVE); Opiates POSITIVE (NEGATIVE); Phencyclidine NEGATIVE (NEGATIVE); THC Cannibis POSITIVE (NEGATIVE)
[2023-05-25] MEDS ORDERED: CEFTRIAXONE 1000 MG/VIAL ONE (12:53)
[2023-05-25] MEDS ORDERED: AZITHROMYCIN 500 MG INJ IVPB ONE (12:54)
[2023-05-25] MEDS ORDERED: NA CHLORIDE 0.9% 250 ML ONE (12:54)
[2023-05-25] MEDS ORDERED: NA CHLORIDE 0.9% 50 ML ONE (12:54)
[2023-05-25] MEDS ORDERED: D5.45NS W/KCL 20MEQ 1,000 ML IV SCH (14:00)
[2023-05-25 14:17] LABS: Troponin High Sensitivity 14.4 pg/mL (<58.9)
[2023-05-25 14:26] LABS: Phosphorus 1.4 mg/dL (2.5-4.9)
[2023-05-25] MEDS ORDERED: POTASSIUM PHOS IN 0.9 % NACL 15 MMOL/250 ML BAG IV ONE ×2 (15:00→21:55)
[2023-05-25] MEDS ORDERED: AA 4.25 %/D5W/ELECTROLYTES 2,000 ML, Lipids 20% 250 ML with MULTIVITAMINS INJ 10 ML IV ONE ×3 (17:00)
[2023-05-25] MEDS: ACETAMINOPHEN 500 MG TAB PO PRN (19:48)
[2023-05-25] MEDS: Mupirocin NASAL 2 APPL/1 GM TUBE NAS SCH (19:52)
[2023-05-25 21:40] LABS: Phosphorus 1.6 mg/dL (2.5-4.9); Troponin High Sensitivity 17.8 pg/mL (<58.9)
[2023-05-25] MEDS ORDERED: POTASSIUM CL SA 10 MEQ TAB PO ONE (21:56)
[2023-05-26] MEDS: ACETAMINOPHEN 500 MG TAB PO PRN ×4 (01:15→20:01)
[2023-05-26 03:17] LABS: Absolute Lymphocytes (CBC) 0.3 K/uL (0.7-4.9); Lymphocytes % 1.7 % (15.3-44.8); MCV 95.8 fL (80-100); MPV 8.7 fL (7.6-11.3); Platelets 255 thou/uL (152-406); RBC Red Blood Cell Count 3.86 M/uL (4.33-5.43)
[2023-05-26 03:37] LABS: AST/SGOT 19 U/L (15-37); Albumin 2.6 g/dL (3.4-5.0); Alkaline Phosphatase 81 U/L (45-117); BUN Blood Urea Nitrogen 3 mg/dL (7-18); Bicarbonate 24 mEq/L (21-32); Bilirubin Total 0.8 mg/dL (0.2-1.0); Glomerular Filtration Rate 139 ml/min (=/>90); Glucose Level 123 mg/dL (74-106); Magnesium 1.9 mg/dL (1.6-2.4); Phosphorus 1.6 mg/dL (2.5-4.9); Potassium 3.4 mEq/L (3.5-5.1); Protein, Total 6.9 g/dL (6.4-8.2); Sodium Level 138 mEq/L (136-145)
[2023-05-26 03:38] LABS: ALT/SGPT < 10 U/L (16-61)
--- NOTE | 2023-05-26 06:42 | P.PN ---
Date of Service: 05/26/23 Subjective: abdominal pain improving, minimal n/v tolerating some jello, +sips of water feels short of breath, on oxygen supplementation, +cough ~unchanged chest pain when coughs intermittent fever ROS: 10 point ROS as noted above, otherwise negative Physical Exam: GEN: Alert, oriented, thin HEENT: Normal conjunctiva, sclera anicteric CV: sinus tachycardia, no edema Pulm: Non-labored respirations on 2L NC, mild crackles at bases, +dry cough ABD: Soft, mild periumbilical abdominal tenderness on deep palpation Integumentary: No rashes, no lesions Neuro: Normal speech, normal affect vitals reviewed Problem List Sepsis secondary to bilateral pneumonia Chest Pain Sinus Tachycardia Intractable Nausea/Vomiting x 2 months Lower abdominal pain Severe Protein-Calorie Malnutrition ~30-40lb weight loss Hypophastemia Marijuana dependence h/o asthma Sepsis secondary to bilateral pneumonia unclear etiology, possible aspiration given daily vomiting seen at [facility] ~2 days prior to admission, given cipro/flagyl for presumed GI infection CT Chest (05/25): Moderate linear opacities in both lung bases along the periphery, likely representing infection Blood culture: NGTD continue empiric Rocephin/Zithromycin (05/25-) febrile, +leukocytosis (18.2 -> 17.4) reportedly WBC: 29k at [place], ~2 days prior to admission added PRN Cheratussin for cough - (05/26) wean O2 Chest Pain Sinus Tachycardia suspect secondary to sepsis / pneumonia chest pain with cough and deep breath on review of EMS history, noted possible a-flutter; strips reviewed by ED - reportedly sinus tachycardia, no noted afib/flutter Troponins negative x3, monitor on telemetry D-dimer: 305 HR currently in 80-90s Intractable Nausea/Vomiting Lower abdominal pain Severe Protein-Calorie Malnutrition ~40lb weight loss Hypophastemia reports progressively worsening n/v for ~2 months; ~30-40lb weight loss since February 2023 daily vomiting, ~10min after trying to eat anything, regardless of volume Unclear etiology - IBS/cannabis hyperemesis syndrome - reports daily marijuana use for ~4yrs, possible gastroparesis/delayed emptying CT abdomen (05/25): No acute intra-abdominal or pelvic finding Abdominal u/s (05/25): unremarkable General surgery consulted - Dr. Cano regarding intractable n/v and pain Gastric emptying study ordered will need EGD/C-scope at some point, currently scheduled for 1 month from now as outpatient, may benefit from inpatient scope, pending workup 05/26 - tolerated some jello / sips of water in morning reported first time without pain /nausea continue PPN - started 05/25 evening PICC ordered for TPN [employer] consulted PRN pain medication, PRN antiemetics monitor closely for refeeding syndrome PPN at low rate, slow uptitration Marijuana dependence reports daily use for past ~4 years. States he quit this past saturday. Recommended to continue cessation. Code: Full Dispo: Home, ~3 days
[2023-05-26] MEDS: Mupirocin NASAL 2 APPL/1 GM TUBE NAS SCH ×2 (08:02→20:02)
[2023-05-26] MEDS: CEFTRIAXONE 1,000 MG in NA CHLORIDE 0.9% 50 ML IVPB SCH (08:02)
[2023-05-26] MEDS: AZITHROMYCIN IV 500 MG in NA CHLORIDE 0.9% 250 ML IVPB SCH (08:02)
[2023-05-26] MEDS ORDERED: POTASSIUM CL SA 10 MEQ TAB PO ONE (09:00)
--- NOTE | 2023-05-26 12:41 | RAD REPORT ---
EXAM DESCRIPTION: RAD - Chest Single View - 05/26/2023 12:32 pm CLINICAL HISTORY: Device placement PICC line placement IMPRESSION: PICC line with its tip in the superior vena cava There may be mild worsening in the bilateral pulmonary opacities
[2023-05-26] MEDS: GUAIFENESIN/CODEINE 5ML UCUP PO PRN (13:41)
[2023-05-26 15:44] LABS: Magnesium 1.9 mg/dL (1.6-2.4)
[2023-05-26 16:43] LABS: Phosphorus 0.9 mg/dL (2.5-4.9)
[2023-05-26] MEDS ORDERED: MAGNESIUM SULFATE 1 gm IVPB 1 GM/100 ML BAG IV ONE (16:43)
[2023-05-26] MEDS ORDERED: POTASSIUM PHOS 30 MM in NA CHLORIDE 0.9% 500 ML IV ONE (16:43)
[2023-05-26] MEDS ORDERED: AA 4.25 %/D5W/ELECTROLYTES 2,000 ML IV SCH (17:00)
[2023-05-26] MEDS ORDERED: AA 5%/D20W/ELECTROLYTES-TPN 2,000 ML IV SCH (17:00)
[2023-05-26] MEDS ORDERED: GOLYTELY 4000 ML PO SCH (17:00)
[2023-05-26] MEDS ORDERED: IBUPROFEN 600 MG TAB PO PRN (17:06)
[2023-05-26] MEDS: KCL 20 MEQ/100 mL IVPB 20 MEQ/100 ML BAG IV SCH ×2 (17:17→19:06)
[2023-05-26] MEDS: AA 5%/D20W/ELECTROLYTES-TPN 2,000 ML IV SCH (17:31)
[2023-05-26] MEDS: MORPHINE 2 MG/ML SYR IV PRN ×2 (17:55→23:57)
[2023-05-26] MEDS: ONDANSETRON 4 MG/2 ML VIAL IV PRN (20:01)
[2023-05-26 21:10] LABS: Specific Gravity 1.014 (1.005-1.030); Urine Bacteria None Seen /HPF (<20); Urine Bilirubin NEGATIVE (Negative); Urine Blood Negative (Negative); Urine Clarity Clear (Clear); Urine Color Light-Yellow (Yellow); Urine Glucose 3+ (Negative); Urine Mucus 1+ /HPF (None Seen); Urine Protein 1+ (Negative); Urine RBC <5 /HPF (None Seen); Urine Urobilinogen Normal (Normal)
[2023-05-27 00:49] LABS: Magnesium 2.2 mg/dL (1.6-2.4); Phosphorus 2.3 mg/dL (2.5-4.9); Potassium 3.5 mEq/L (3.5-5.1)
[2023-05-27] MEDS ORDERED: POTASSIUM PHOS IN 0.9 % NACL 15 MMOL/250 ML BAG IV ONE ×2 (00:57→08:00)
[2023-05-27] MEDS ORDERED: KCL 20 MEQ/100 mL IVPB 20 MEQ/100 ML BAG IV SCH ×2 (01:00→06:00)
[2023-05-27 04:57] LABS: Absolute Lymphocytes (CBC) 0.3 K/uL (0.7-4.9); Hematocrit 36.5 % (39.6-49.0); Lymphocytes % 1.6 % (15.3-44.8); MCV 95.4 fL (80-100); MPV 7.8 fL (7.6-11.3); Platelets 264 thou/uL (152-406); RBC Red Blood Cell Count 3.83 M/uL (4.33-5.43)
[2023-05-27 05:16] LABS: Albumin 2.5 g/dL (3.4-5.0); Bilirubin Total 0.5 mg/dL (0.2-1.0); Magnesium 2.1 mg/dL (1.6-2.4); Potassium 3.7 mEq/L (3.5-5.1)
[2023-05-27] MEDS: MORPHINE 2 MG/ML SYR IV PRN ×2 (05:57→20:25)
[2023-05-27] MEDS: ONDANSETRON 4 MG/2 ML VIAL IV PRN ×2 (05:57→20:25)
--- NOTE | 2023-05-27 06:41 | P.PN ---
Date of Service: 05/27/23 Subjective: feels chest pain ~unchanged, HR in 100-120s increased respirations, +shallow breathing 2 watery BM yesterday, no abdominal pain; tolerated jello / water intermittent fever / low grade temps overnight/today ROS: 10 point ROS as noted above, otherwise negative Physical Exam: GEN: Alert, oriented, thin HEENT: Normal conjunctiva, sclera anicteric CV: sinus tachycardia, no edema Pulm: mildly-labored respirations on 2L NC, mild crackles at bases, +dry cough ABD: Soft, mild periumbilical abdominal tenderness on deep palpation Integumentary: No rashes, no lesions Neuro: Normal speech, normal affect vitals reviewed Problem List Sepsis secondary to bilateral pneumonia Chest Pain Vtach Intractable Nausea/Vomiting x 2 months Lower abdominal pain Severe Protein-Calorie Malnutrition ~30-40lb weight loss Hypophastemia Marijuana dependence h/o asthma Sepsis secondary to bilateral pneumonia unclear etiology, possible aspiration given daily vomiting vs marijuana / eosinophilic injury seen at [facility] ~2 days prior to admission, given cipro/flagyl for presumed GI infection CT Chest (05/25): Moderate linear opacities in both lung bases along the periphery, likely representing infection Blood culture: NGTD continue empiric Rocephin/Zithromycin (05/25-) intermittent fever/low grade temps continue, +leukocytosis improving reportedly WBC: 29k at [place], ~2 days prior to admission added PRN Cheratussin for cough - (05/26) Pulmonology consulted PRN nebs added solu-medrol 05/27 wean O2 Chest Pain Vtach suspect secondary to sepsis / pneumonia chest pain with cough and deep breath on review of EMS history, noted possible a-flutter; strips reviewed by ED - reportedly sinus tachycardia, no noted afib/flutter Troponins negative x3, monitor on telemetry D-dimer: 305 Cardiology consulted tentative stress test today repeat CRP, CXR, troponin ordered 05/27 d/t ongoing chest pain echo ordered Intractable Nausea/Vomiting Lower abdominal pain Severe Protein-Calorie Malnutrition ~40lb weight loss Hypophastemia reports progressively worsening n/v for ~2 months; ~30-40lb weight loss since February 2023 daily vomiting, ~10min after trying to eat anything, regardless of volume Unclear etiology - IBS/cannabis hyperemesis syndrome - reports daily marijuana use for ~4yrs, possible gastroparesis/delayed emptying CT abdomen (05/25): No acute intra-abdominal or pelvic finding Abdominal u/s (05/25): unremarkable General surgery consulted - Dr. Cano regarding intractable n/v and pain Gastric emptying study ordered NPO for tentative EGD today 05/26 - tolerated some jello / sips of water in morning reported first time without pain /nausea [employer] consulted started PPN (05/25) - transitioned to TPN (05/26) evening monitor closely for refeeding syndrome PPN at low rate, slow uptitration Marijuana dependence reports daily use for past ~4 years. States he quit this past saturday. Recommended to continue cessation. Code: Full Dispo: Home, ~3-4 days
[2023-05-27] MEDS: ARFORMOTEROL TARTRATE 15 MCG/2 ML VIAL.NEB NEB SCH ×2 (09:00→19:55)
[2023-05-27] MEDS: AZITHROMYCIN IV 500 MG in NA CHLORIDE 0.9% 250 ML IVPB SCH (09:13)
[2023-05-27] MEDS: GUAIFENESIN/CODEINE 5ML UCUP PO PRN (09:15)
[2023-05-27] MEDS: Mupirocin NASAL 2 APPL/1 GM TUBE NAS SCH ×2 (09:15→20:25)
[2023-05-27] MEDS: METHYLPREDNISOLONE 125 MG INJ IV SCH ×2 (09:16→20:25)
[2023-05-27] MEDS ORDERED: NA CHLORIDE 0.9% 0 ML ONE (09:39)
[2023-05-27] MEDS: CEFTRIAXONE 1,000 MG in NA CHLORIDE 0.9% 50 ML IVPB SCH (10:23)
--- NOTE | 2023-05-27 11:53 | P.CNS ---
Date of Consult: 05/27/23 Reason for Consult: Pneumonia Chief Complaint: sepsis, Chest pain, SOB History of Present Illness: Patient is 22 years of age significant history of marijuana use admitted to the hospital complaining of chest pains fever chills over the past week history of a sthma uses albuterol he quit smoking marijuana about a week ago has been complaining of persistent vomiting diarrhea loss significant amount of weight with pneumonia fever Allergies No Known Allergies Allergy (Unverified 12/04/16 20:15) Home Medications: Ciprofloxacin HCl 500 mg PO Q12H 05/26/23 Dicyclomine [Bentyl*] 20 mg PO Q8H PRN 05/26/23 Metronidazole 500 mg PO Q8H 05/26/23 - Past Medical/Surgical History Diabetic: No -: Asthma - Social History Smoking Status: Current every day smoker Alcohol use: No CD- Drugs: Yes Caffeine use: Yes Place of Residence: Home Review of Systems General: Weakness Respiratory: Cough, Shortness of Breath, Pleuritic Pain Cardiovascular: Chest Pain Gastrointestinal: Nausea, Diarrhea Physical Examination Temp Pulse Resp BP Pulse Ox 99.9 F 121 H 32 H 99/58 L 97 05/27/23 10:32 05/27/23 10:32 05/27/23 10:32 05/27/23 10:00 05/27/23 10:32 General: Alert, Oriented x3 Neck: Supple Respiratory: Clear to auscultation bilaterally Cardiovascular: No edema, Regular rate/rhythm, Normal S1 S2 Gastrointestinal: Normal bowel sounds, Non-distended - Problems (1) Pneumonia Current Visit: Yes Status: Acute Plan: Patient is 22 years of age admitted with pneumonia he has mostly peripheral interval infiltrates patient is history of heavy marijuana use I suspect he has marijuana induced lung injury systemic toxicity perhaps a acute eosinophilic pneumonia chemistries reviewed white count is elevated admitted with fever continue with IV antibiotics add steroids urine screen positive for THC and opioids add bronchodilators Qualifiers: Pneumonia type: due to unspecified organism Laterality: bilateral
--- NOTE | 2023-05-27 12:01 | RAD REPORT ---
EXAM DESCRIPTION: RADChest Single View05/27/2023 9:36 am CLINICAL HISTORY: substernal chest pain, opacities COMPARISON: Chest Single View dated 05/26/2023; Chest Single View dated 05/25/2023 TECHNIQUE: Portable AP view of the chest. FINDINGS: Patchy central and bibasilar airspace opacities, progressive since the prior exam. Right a rm PICC in unchanged position. No pneumothorax or effusion. The cardiomediastinal contours are unrema rkable. IMPRESSION: Progressive bilateral airspace opacities as above, could reflect worsening edema or mult ifocal pneumonia
[2023-05-27] MEDS ORDERED: REGADENOSON 0.4 MG/5 ML SYR IV ONE (12:30)
--- NOTE | 2023-05-27 13:06 | EKG ---
Test Date: 2023-05-25 Test Time: 08:01:17 Rn Surgical Pcu: L[facility] MEASUREMENT RESULTS: Intervals: Rate: 102 LA: 122 QRSD: 86 QT: 304 QTc: 396 [place]: P: 50 LA: 122 QRS: 84 T: 61 INTERPRETIVE STATEMENTS: Sinus tachycardia Otherwise normal ECG Compared to ECG 05/25/2023 08:00:49 ST (T wave) deviation no longer present Electronically Signed On 05-27-23 13:04:57 CDT by Maynor Franklin
--- NOTE | 2023-05-27 13:07 | EKG ---
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
[2023-05-27] MEDS ORDERED: DEXTROSE 10%-WATER 500 ML IV ONE (13:14)
[2023-05-27] MEDS: DEXTROSE 10%-WATER 500 ML IV SCH ×2 (13:15→19:20)
--- NOTE | 2023-05-27 13:15 | RAD REPORT ---
EXAM DESCRIPTION: NM - Rest Stress Cardiac Imaging - 05/27/2023 12:51 pm CLINICAL HISTORY: Chest pain. COMPARISON: None. TECHNIQUE: The patient was administered 9.8 mCi of Tc 99m Sestamibi prior to resting SPECT imaging o f the heart. The patient was then administered 28.3 mCi of Tc 99m Sestamibi following exercise or pha rmacologic stress. Multiplanar SPECT images were reviewed. FINDINGS: Large amount of radiotracer activity is present within the stomach on stress and rest sequ ences which limits evaluation Moderate areas of diminished radiotracer activity involving the inferior and anterior left ventricula r myocardium on rest and stress sequences. Small area of diminished radiotracer uptake involving the lateral left ventricular myocardium on rest and stress sequences The left ventricular ejection fraction equals 53% IMPRESSION: Suboptimal examination as described above Apparent fixed perfusion defect involving the inferior, anterior and lateral left ventricle myocardiu m may be secondary to infarcts or overlying soft tissue There is no evidence of stress-induced ischemia
[2023-05-27] MEDS ORDERED: Ringers Lactate 1,000 ML IV ONE (13:23)
[2023-05-27] MEDS: ALBUTEROL 2.5 MG/3 ML NEB SOL IH SCH ×2 (14:00→19:55)
--- NOTE | 2023-05-27 14:11 | TREADPHA ---
DX: CHEST PAIN Date of Study: 05/27/2023 Ht: 5' 6 " Wt: 121 lb 0 oz Consulting Physician: NEVA MEDICATIONS: TYLENOL, PROVENTIL, BROVANA, AZITHROMYCIN, ROBITUSSIN, MOTRIN, SOLU-MEDROL, MORPHINE, ZOFRAN HISTORY: 22 YEAR OLD MALE WITH COMPLAINTS OF CHEST PAIN FOR TWO WEEKS. PHYSICIAL EXAMINATION: RESTING B.P.: 114/56 RESTING H.R.: 92 RESTING EKG: NORMAL SINUS RHYTH, WITHIN NORMAL LIMITS PROTOCOL: PHARMACOLOGIC EXERCISE TIME: 3:30 B.P. AT [place] STRESS: 108/54 IMPRESSION: LEXISCAN INJECTED. CARDIOLITE INJECTED (SEE NUCLEAR MEDICINE REPORT). NO COMPLAINTS OF CHEST PAIN OR SHORTNESS OF BREATH. NO VENTRICULAR TACHYCARDIA/ SUPRAVENTRICULAR TACHYCARDIA. NO ELECTROCARDIOGRAM CHANGES WITH LEXISCAN.
[2023-05-27] MEDS ORDERED: LIDOCAINE 1% MPF 5 ML VIAL ONE (14:43)
[2023-05-27] MEDS ORDERED: propofoL 200 MG/20 ML VIAL IV ONE ×2 (14:43→14:47)
[2023-05-27] MEDS ORDERED: NS 0.9% VIAL 10 ML ONE (14:47)
[2023-05-27] MEDS ORDERED: ESMOLOL HCL 10 ML IV ONE (15:04)
[2023-05-27] MEDS ORDERED: GOLYTELY 4000 ML PO SCH (16:00)
[2023-05-27] MEDS ORDERED: AA 4.25 %/D5W/ELECTROLYTES 2,000 ML, Lipids 20% 250 ML with MULTIVITAMINS INJ 10 ML IV SCH ×3 (17:00)
[2023-05-27] MEDS: AA 5%/D20W/ELECTROLYTES-TPN 2,000 ML, Lipids 20% 250 ML with MULTIVITAMINS INJ 10 ML IV SCH ×3 (17:19)
[2023-05-28] MEDS: ALBUTEROL 2.5 MG/3 ML NEB SOL IH SCH ×4 (01:40→20:00)
[2023-05-28] MEDS: ONDANSETRON 4 MG/2 ML VIAL IV PRN (02:08)
[2023-05-28] MEDS: MORPHINE 2 MG/ML SYR IV PRN ×3 (02:08→22:35)
[2023-05-28 05:09] LABS: Absolute Lymphocytes (CBC) 0.2 K/uL (0.7-4.9); Hematocrit 36.5 % (39.6-49.0); Lymphocytes % 0.9 % (15.3-44.8); MCV 95.8 fL (80-100); MPV 8.2 fL (7.6-11.3); Platelets 309 thou/uL (152-406); RBC Red Blood Cell Count 3.81 M/uL (4.33-5.43)
[2023-05-28 05:27] LABS: Albumin 2.4 g/dL (3.4-5.0); Bilirubin Total 0.2 mg/dL (0.2-1.0); Magnesium 2.4 mg/dL (1.6-2.4); Phosphorus 3.4 mg/dL (2.5-4.9); Potassium 3.7 mEq/L (3.5-5.1); Protein, Total 7.2 g/dL (6.4-8.2)
[2023-05-28] MEDS ORDERED: KCL 20 MEQ/100 mL IVPB 20 MEQ/100 ML BAG IV SCH (06:00)
[2023-05-28] MEDS: AZITHROMYCIN IV 500 MG in NA CHLORIDE 0.9% 250 ML IVPB SCH (08:06)
[2023-05-28] MEDS: CEFTRIAXONE 1,000 MG in NA CHLORIDE 0.9% 50 ML IVPB SCH (08:06)
[2023-05-28] MEDS: METHYLPREDNISOLONE 125 MG INJ IV SCH ×2 (08:07→20:44)
[2023-05-28] MEDS: ARFORMOTEROL TARTRATE 15 MCG/2 ML VIAL.NEB NEB SCH ×2 (08:10→20:00)
[2023-05-28 08:27] LABS: Blood Morphology Comment NOT SEEN (NOT SEEN); Dohle Bodies PRESENT; Platelet Estimate ADEQ; Toxic Granulation NOTED
[2023-05-28] MEDS: DEXTROSE 10%-WATER 500 ML IV SCH ×2 (09:15→19:15)
[2023-05-28] MEDS: Mupirocin NASAL 2 APPL/1 GM TUBE NAS SCH ×2 (09:28→20:45)
[2023-05-28] MEDS ORDERED: LIDOCAINE 1% MPF 5 ML VIAL ONE (10:21)
[2023-05-28] MEDS ORDERED: propofoL 200 MG/20 ML VIAL IV ONE ×2 (10:21→10:55)
[2023-05-28] MEDS ORDERED: Ringers Lactate 1,000 ML IV ONE (10:46)
[2023-05-28] MEDS ORDERED: FENTANYL CITR 100 MCG/2 ML ONE (11:02)
[2023-05-28] MEDS ORDERED: EPINEPHRINE 1 MG/ML VIAL IV ONE (11:34)
--- NOTE | 2023-05-28 14:15 | P.CNS ---
Date of Consult: 05/28/23 Reason for Consult: sepsis, pneumonia Chief Complaint: sepsis, Chest pain, SOB History of Present Illness: Patient is a 22 yo male with a past medical history of asthma who presented to the ED with complaints of fever, chest pain and shortness of breath. He also reports intractable nausea/vomiting for the past 2 months without any improvement and 30-40 lb weight loss over the past 2-[address] abdomen negative for acute findings. CT chest revealing "Moderate linear opacities are present in both lung bases along the periphery, likely representing infection." Patient admitted for sepsis, pneumonia. Allergies No Known Allergies Allergy (Unverified 12/04/16 20:15) Home medications list reviewed: Yes Home Medications: Ciprofloxacin HCl 500 mg PO Q12H 05/26/23 Dicyclomine [Bentyl*] 20 mg PO Q8H PRN 05/26/23 Metronidazole 500 mg PO Q8H 05/26/23 - Past Medical/Surgical History Diabetic: No -: Asthma - Social History Smoking Status: Current every day smoker Alcohol use: No CD- Drugs: Yes Caffeine use: Yes Place of Residence: Home Review of Systems 10-point ROS is otherwise unremarkable General: Weakness Respiratory: Cough, Shortness of Breath Cardiovascular: Chest Pain Gastrointestinal: Nausea, Vomiting Physical Examination Temp Pulse Resp BP Pulse Ox 97 F 69 22 H 117/80 93 05/28/23 12:08 05/28/23 13:00 05/28/23 13:00 05/28/23 13:00 05/28/23 13:00 General: Alert, In no apparent distress, Oriented x3 HEENT: Atraumatic, Normocephalic Neck: JVD not distended Respiratory: Diminished, Other (on 2L nasal cannula) Cardiovascular: No edema, Other (tachycardic) Gastrointestinal: Normal bowel sounds, Soft and benign Musculoskeletal: No clubbing, No swelling Integumentary: No rashes, No breakdown Neurological: Normal speech, Normal tone, Normal affect Laboratory Data - Reviewed Microbiology Data - Reviewed Imagings Data: - Reviewed Conclusions/Impression: Problem List Sepsis Bilateral Pneumonia Nausea/Vomiting Severe PCM Sepsis secondary to bilateral pneumonia - hx of marijuana use daily x [address] years - [address] Chest 05/25: "Moderate linear opacities are present in both lung bases along the periphery, likely representing infection. " - pulmonology on case - On Rocephin and Azithromycin (started 05/26) Intractable nausea and vomiting for 2 months - reports 30-40 lb weight loss within 2 months - [address] abdomen w contrast 05/25: "No acute intra-abdominal or pelvic finding" - abdominal ultrasound unremarkable - s/p EGD on 05/27 Blood cultures 05/25: No growth to date Leukocytosis. Of note, patient was started on SoluMedrol 05/27. Afebrile. Recommendations - Continue current antibiotics for 5-7 days (started 05/26) - Continue neb treatments - Monitor WBC and fever trends - scheduled for colonoscopy today. follow up with results. Case discussed with Isak Yanez
--- NOTE | 2023-05-28 16:24 | CON ---
Date of Consultation: 05/27/2023 Reason For Consultation: Short run of V-tach and chest pain. History Of Present Illness: This is a 22-year-old male, who has no significant past medical history, who presented to the emergency room with fever, chest pain, and shortness of breath. He in the hosp ital while in ICU had a short run of V-tach or 3 consecutive PVCs, but he said his chest pain has bee n hurting constantly nonstop and the patient apparently is a heavy smoker. He is smoking marijuana l arge amounts. He denies having any nausea, vomiting, or diarrhea. Past Medical History: None. Medications: None. Allergies: NO KNOWN DRUG ALLERGIES. Family History: No premature coronary artery disease or cancer. Social History: He does smoke marijuana. Does not drink or smoke cigarettes. Review of Systems: All systems reviewed and they were negative except what mentioned in HPI. Physical Examination: Vital Signs: Reviewed. Head and Neck: Pupils are equal, reactive to light. Intact eye movements. No JVD. No cervical lym phadenopathy. Neck is supple. Thyroid is not enlarged. Lungs: Clear to auscultation bilaterally. No rhonchi, wheezing, or crackles. No accessory muscle u se. Heart: Regular rate and rhythm. No extra sounds. Abdomen: Soft, nontender. Bowel sounds positive. No organomegaly. No masses or hernia. No rigidi ty or rebound. Extremities: No clubbing or cyanosis. Intact pulses. Skin: No rash. Neurologic: Alert, awake, oriented x3. No acute focal deficits appreciated. Investigations: BUN 5, creatinine 0.48, and troponins are negative and hemoglobin was 12.1, white bl ood cell count 16.7. Assessment And Recommendations: 1.Ventricular tachycardia, short run, but the patient apparently is having bilateral pneumonia. I b elieve it is the cause of his chest pain. Anyway, I will obtain an echo and a stress test just to co nfirm that there is no ischemia and I will follow the patient with you afterwards. 2.Chest pain, likely due to bilateral pneumonia. Recommend IV antibiotics and pain management. Car diac enzymes have been negative and await on the stress test. SR/MODL Voice ID: [id number] Report ID: [id number]
--- NOTE | 2023-05-28 16:31 | RAD REPORT ---
EXAM DESCRIPTION: RADChest Single View05/28/2023 4:05 pm CLINICAL HISTORY: Desaturation COMPARISON: Chest Single View dated 05/27/2023; Chest Single View dated 05/26/2023; Chest Single View [place] 05/25/2023 TECHNIQUE: Portable AP view of the chest. FINDINGS: Progressive central patchy airspace opacities, with interstitial thickening. Right arm PIC C unchanged in position. No pneumothorax or effusion. The cardiomediastinal contours are unremarkable . IMPRESSION: Progressive central patchy airspace opacities, could reflect worsening edema or progress tika pneumonia.
--- NOTE | 2023-05-28 16:53 | P.PN ---
Subjective Date of Service: 05/28/23 Chief Complaint: sepsis, Chest pain, SOB Patient states he is feeling better today. He has tolerated full liquid diet. No fever for the past 48 hours. Physical Examination - Vital Signs Temperature: 97 F Blood Pressure: 114/85 Pulse: 79 Respirations: 23 Pulse Ox (%): 93 Assessment And Plan - Plan Physical Exam: GEN: Alert, oriented, cachectic. HEENT: Normal conjunctiva, sclera anicteric CV: sinus tachycardia, no edema Pulm: mild crackles at bases, adequate breath sounds bilaterally. ABD: Soft, no tenderness, no distention. Integumentary: No rashes, no lesions Neuro: Normal speech, normal affect vitals reviewed Problem List Sepsis secondary to bilateral pneumonia Chest Pain Vtach Intractable Nausea/Vomiting x 2 months Lower abdominal pain Severe Protein-Calorie Malnutrition ~30-40lb weight loss Hypophastemia Marijuana dependence h/o asthma Sepsis secondary to bilateral pneumonia CT Chest (05/25): Moderate linear opacities in both lung bases along the periphery, likely representing infection Blood culture: NGTD Reportedly WBC: 29k at [place], ~2 days prior to admission Central distribution of infiltrates. Continue treatment for bacterial pneumonia. Obtain sputum culture Pulmonary input appreciated. Obtain echocardiogram to rule to assess for LV function, endocarditis. On IV steroid. Steroid contributing to worsening leukocytosis PRN nebs wean O2 Chest Pain Vtach V. tach probably secondary to hypoxia versus PICC line tip irritation of right atrium. Troponins negative x3, monitor on telemetry Nuclear stress test showed no stress-induced ischemia. Did reported fixed defect nonspecific for artifact. D-dimer: [address] Franklin is following echo is pending. Continue cardiac monitoring. Intractable Nausea/Vomiting Lower abdominal pain Severe Protein-Calorie Malnutrition ~40lb weight loss Hypophastemia reports progressively worsening n/v for ~2 months; ~30-40lb weight loss since February 2023 daily vomiting, ~10min after trying to eat anything, regardless of volume Cannabis hyperemesis syndrome suspected. Status post EGD and colonoscopy which were unremarkable. 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 Marijuana dependence Cessation recommended.
--- NOTE | 2023-05-28 17:09 | PN ---
Date of Progress Note: 05/28/2023 Subjective: Seen by bedside and he is status post a stress test that was entirely normal. Echo was normal. Cardiac enzymes are negative. Slightly short of breath with chest pain. No nausea, vomitin g, or diarrhea. All other systems were reviewed, they were negative. Objective: Vital Signs: Reviewed. Head and Neck: Pupils are equal, reactive to light. Intact eye movements. No JVD. No cervical lym phadenopathy. Neck is supple. Thyroid is not enlarged. Lungs: Clear to auscultation bilaterally with rhonchi. No accessory muscle use or muscle retraction . Heart: Regular rate and rhythm. No extra sounds. Abdomen: Soft, nontender. Bowel sounds positive. No organomegaly. No masses or hernia. No rigidi ty or rebound. Extremities: No edema, clubbing, or cyanosis. Intact pulses. Skin: No rash. No nodule. Neuro: Alert, awake, oriented x3. No acute focal deficits appreciated. Investigations: Labs reviewed. Assessment And Recommendations: 1.Chest pain. This is not cardiac stress test. He did very well on a treadmill and stress test was normal including the nuclear part and echo was normal. Cardiac enzymes are normal. There is no car diac issue and I believe his pain is from the pneumonia and no further cardiac workup. To keep the p atient on the cardiac playground monitor and cardiology will sign off at this point. 2.Ventricular tachycardia, very short run, 3 beats. Ischemia workup is negative. Echo is negative. It is likely due to the acute illness that he is going through and no further action is required at this point unless this happens again. /NATACHA Voice ID: [id number] Report ID: [id number]
[2023-05-28 17:21] LABS: Blood Gas Oxyhemoglobin 79.9 % (94-97); Blood O2 Saturation 81.5 % (92-98.5)
[2023-05-28] MEDS: Meropenem 1,000 MG in NA CHLORIDE 0.9% 100 ML IV SCH (17:44)
[2023-05-28] MEDS: AA 5%/D20W/ELECTROLYTES-TPN 2,000 ML IV SCH (17:46)
[2023-05-28] MEDS: ACETAMINOPHEN 500 MG TAB PO PRN (20:44)
[2023-05-28] MEDS: GUAIFENESIN/CODEINE 5ML UCUP PO PRN (20:44)
[2023-05-29] MEDS: Meropenem 1,000 MG in NA CHLORIDE 0.9% 100 ML IV SCH ×3 (00:33→17:25)
[2023-05-29] MEDS: ALBUTEROL 2.5 MG/3 ML NEB SOL IH SCH ×4 (01:42→20:20)
[2023-05-29 05:08] LABS: Absolute Lymphocytes (CBC) 0.2 K/uL (0.7-4.9); Hematocrit 37.6 % (39.6-49.0); Lymphocytes % 0.7 % (15.3-44.8); MCV 96.6 fL (80-100); MPV 7.9 fL (7.6-11.3); Platelets 386 thou/uL (152-406); RBC Red Blood Cell Count 3.89 M/uL (4.33-5.43)
[2023-05-29 05:15] LABS: Magnesium 2.5 mg/dL (1.6-2.4)
[2023-05-29] MEDS: DEXTROSE 10%-WATER 500 ML IV SCH ×2 (05:15→15:15)
[2023-05-29 05:20] LABS: Albumin 2.4 g/dL (3.4-5.0); Bilirubin Total 0.3 mg/dL (0.2-1.0); Potassium 3.8 mEq/L (3.5-5.1); Protein, Total 7.2 g/dL (6.4-8.2)
--- NOTE | 2023-05-29 06:43 | ECHO ---
HEIGHT: 5 ft 6 in WEIGHT: 118 lb 3.2 oz DATE OF STUDY: 05/28/[address]: Maynor Franklin 2-DIMENSIONAL: YES M.MODE: YES DOPPLER: YES COLOR FLOW: YES TDS: PORTABLE: YES DEFINITY: BUBBLE STUDY: DIAGNOSIS: CHEST PAIN CARDIAC HISTORY: CATHERIZATION: NO SURGERY: NO PROSTHETIC VALVE: NO PACEMAKER: NO MEASUREMENTS (cm) DIASTOLIC (NORMALS) SYSTOLIC (NORMALS) IVSd 0.7 (0.6-1.2) LA Diam 2.4 (1.9-4.0) LVEF 67% LVIDd 4.3 (3.5-5.7) LVIDs 2.7 (2.0-3.5) %FS 37% LVPWd 0.8 (0.6-1.2) Ao Diam 2.4 (2.0-3.7) 2 DIMENSIONAL ASSESSMENT: RIGHT ATRIUM: NORMAL LEFT ATRIUM: NORMAL RIGHT VENTRICLE: NORMAL LEFT VENTRICLE: NORMAL TRICUSPID VALVE: MILD TRICUSPID REGURGITATION MITRAL VALVE: MILD MITRAL REGURGITATION PULMONIC VALVE: NORMAL AORTIC VALVE: NORMAL PERICARDIAL EFFUSION: NONE AORTIC ROOT: NORMAL LEFT VENTRICULAR WALL MOTION: NORMAL DOPPLER/COLOR FLOW: SEE BELOW COMMENTS: 1. NORMAL LEFT VENTRICULAR EJECTION FRACTION 60-65% 2. NORMAL WALL MOTION 3. NORMAL DIASTOLIC FUNCTION 4. MILD MITRAL REGURGITATION 5. MILD TRICUSPID REGURGITATION TECHNOLOGIST: EMILIANO PERALTA
[2023-05-29 06:52] LABS: Phosphorus 4.2 mg/dL (2.5-4.9)
[2023-05-29] MEDS: ARFORMOTEROL TARTRATE 15 MCG/2 ML VIAL.NEB NEB SCH ×2 (07:30→20:20)
[2023-05-29] MEDS ORDERED: KCL 20 MEQ/100 mL IVPB 20 MEQ/100 ML BAG IV SCH (08:00)
[2023-05-29] MEDS: Mupirocin NASAL 2 APPL/1 GM TUBE NAS SCH ×2 (08:18→20:57)
[2023-05-29] MEDS: AZITHROMYCIN IV 500 MG in NA CHLORIDE 0.9% 250 ML IVPB SCH (08:18)
[2023-05-29] MEDS: METHYLPREDNISOLONE 125 MG INJ IV SCH (08:18)
--- NOTE | 2023-05-29 08:22 | P.PN ---
Subjective Date of Service: 05/29/23 Chief Complaint: Respiratory failure pneumonia Patient's condition is stable he is more alert responsive on high flow oxygen no diarrhea or vomiting on TPN Review of Systems General: Weakness Respiratory: Shortness of Breath Physical Examination - Vital Signs Temperature: 97.4 F Blood Pressure: 111/68 Pulse: 57 Respirations: 38 Pulse Ox (%): 95 - Physical Exam General: Alert, Oriented x3, Mild distress Respiratory: Diminished, Crackles/rales Cardiovascular: No edema, Regular rate/rhythm, Normal S1 S2 Assessment And Plan - Current Problems (Diagnosis) (1) Pneumonia Current Visit: Yes Status: Acute Plan: Patient is 22 years of age admitted with respiratory failure presumed secondary to marijuana use he has had no further nausea vomiting or diarrhea his endoscopy was unremarkable white count is now elevated may be secondary to steroids continue with present medication he is on azithromycin and meropenem chemistries reviewed abnormal LFTs repeat chest x-ray is pending continue with high flow oxygen Qualifiers: Pneumonia type: due to unspecified organism Laterality: bilateral
[2023-05-29] MEDS: MORPHINE 2 MG/ML SYR IV PRN (08:38)
[2023-05-29] MEDS: METHYLPREDNISOLONE 40 MG INJ IV SCH ×2 (09:00→20:57)
--- NOTE | 2023-05-29 09:02 | RAD REPORT ---
EXAM DESCRIPTION: RADChest Single View05/29/2023 8:26 am CLINICAL HISTORY: increased oxygen demand COMPARISON: Chest Single View dated 05/28/2023; Chest Single View dated 05/27/2023; Chest Single View [place] 05/26/2023; Chest Single View dated 05/25/2023 TECHNIQUE: Portable AP view of the chest. FINDINGS: Continued progression of patchy airspace opacities more prominent centrally and throughout the left lung. This again may represent worsening edema or multifocal pneumonia. Right arm PICC unch anged in position. No pneumothorax or effusion. The cardiomediastinal contours are unremarkable. IMPRESSION: Progressive findings as above.
--- NOTE | 2023-05-29 09:05 | P.PN ---
Date of Service: 05/29/23 Chief Complaint: SOB, n/v Subjective: Patient remains in ICU. Increased O2 requirements from [place] as he is now on High Flow nasal cannula. +shortness of breath, + cough, + chest pain. Physical Examination Temp Pulse Resp BP Pulse Ox 97.4 F 57 26 H 111/68 97 05/29/23 08:22 05/29/23 08:22 05/29/23 08:38 05/29/23 08:22 05/29/23 08:38 General: Alert, In no apparent distress, Oriented x3 HEENT: Atraumatic, Normocephalic Neck: JVD not distended Respiratory: Diminished. On high flow nasal cannula 30/35% Cardiovascular: No edema. RRR. Gastrointestinal: Normal bowel sounds, Soft and benign Musculoskeletal: No clubbing, No swelling Integumentary: No rashes, No breakdown Neurological: Normal speech, Normal tone, Normal affect Laboratory Data - Reviewed Microbiology Data - Reviewed Imagings Data: - Reviewed Medication List: Reviewed Assessment and Plan Problem List Sepsis Bilateral Pneumonia Nausea/Vomiting Severe PCM Sepsis secondary to bilateral pneumonia - hx of marijuana use daily x 4 years - CT Chest 05/25: "Moderate linear opacities are present in both lung bases along the periphery, likely representing infection. " - COVID negative - Influenza A&B: negative - RSV: Negative - HIV 1&2 Ab: Nonreactive - No recent travel. works for [employer]. Denies exposure to chemicals. - Denies cigarette or vape use - pulmonology also on case - XR Chest 05/29: "Continued progression of patchy airspace opacities more prom inent centrally and throughout the left lung. This again may represent worsening edema or multifocal pneumonia." - On Merrem (05/28-) and Azithromycin (05/26-) - Sputum culture 05/28: Pending Intractable nausea and vomiting for 2 months - reports 30-40 lb weight loss within 2 months - CT abdomen w contrast 05/25: "No acute intra-abdominal or pelvic finding" - abdominal ultrasound unremarkable - s/p EGD on 05/27 and colonoscopy 05/28 Blood cultures 05/25: No growth to date Leukocytosis worsening (WBC 30.7). Of note, patient was started on SoluMedrol 80 mg on 05/27. Dose decreased to 40mg on 05/29. 24 hour Tmax = 100.7 F Recommendations - Continue current antibiotics for at least 7 days (started 05/26-) - Follow up with sputum culture results - Continue neb treatments - Wean off high flow nc as tolerated - Monitor WBC and fever trends Case discussed with Isak Yanez
[2023-05-29 09:25] LABS: SARS-COV-2 RT PCR NEGATIVE (NEGATIVE)
[2023-05-29] MEDS: GUAIFENESIN/CODEINE 5ML UCUP PO PRN ×2 (11:50→23:27)
--- NOTE | 2023-05-29 12:27 | P.PN ---
Subjective Date of Service: 05/29/23 Chief Complaint: Respiratory failure pneumonia Patient is frustrated for the delay in diagnosis of his lung disease. He has required high flow oxygen since yesterday. He has tolerated full liquid diet. He had a low-grade fever last night. Physical Examination - Vital Signs Temperature: 97.4 F Blood Pressure: 105/72 Pulse: 57 Respirations: 32 Pulse Ox (%): 98 Assessment And Plan - Plan Physical Exam: GEN: Alert, oriented, cachectic. HEENT: Sclera is anicteric CV: sinus tachycardia, no edema Pulm: mild crackles at bases, adequate breath sounds bilaterally. ABD: Soft, no tenderness, no distention. Integumentary: No rashes, no lesions Neuro: Normal speech, normal affect vitals reviewed Problem List Sepsis secondary to bilateral pneumonia Chest Pain Vtach Intractable Nausea/Vomiting x 2 months Lower abdominal pain Severe Protein-Calorie Malnutrition ~30-40lb weight loss Hypophastemia Marijuana dependence h/o asthma Sepsis secondary to bilateral pneumonia CT Chest (05/25): Moderate linear opacities in both lung bases along the periphery, likely representing infection Blood culture: NGTD Reportedly WBC: 29k at [place], ~2 days prior to admission Repeat check x-ray: Central distribution of infiltrates, worsening infiltrate. Patient now requiring high flow oxygen. Continue treatment for bacterial pneumonia. Changed IV Rocephin to IV meropenem. Continue Zithromax. Sputum culture is pending. Pulmonary is following. Echocardiogram is normal. On IV steroid. Steroid contributing to worsening leukocytosis PRN nebs wean O2 as tolerated. Chest Pain Vtach V. tach probably secondary to hypoxia versus PICC line tip irritation of right atrium. Troponins negative x3, monitor on telemetry Nuclear stress test showed no stress-induced ischemia. Did reported fixed defect nonspecific for artifact. D-dimer: [address] Franklin is following echo is unremarkable Continue cardiac monitoring. Intractable Nausea/Vomiting Lower abdominal pain Severe Protein-Calorie Malnutrition ~40lb weight loss Hypophastemia reports progressively worsening n/v for ~2 months; ~30-40lb weight loss since February 2023 daily vomiting, ~10min after trying to eat anything, regardless of volume Cannabis hyperemesis syndrome suspected. Status post EGD and colonoscopy which were unremarkable. CT abdomen (05/25): No acute intra-abdominal or pelvic finding Abdominal u/s (05/25): unremarkable Patient is unable to do a gastric emptying study due to significant hypoxia. Patient is tolerating full liquid diet [employer] consulted Continue parenteral nutrition. Marijuana dependence Cessation recommended.
[2023-05-29] MEDS: AA 5%/D20W/ELECTROLYTES-TPN 2,000 ML, Lipids 20% 250 ML with MULTIVITAMINS INJ 10 ML IV SCH ×3 (17:25)
--- NOTE | 2023-05-29 21:27 | PN ---
Date of Progress Note: 05/29/2023 Subjective: Seen by bedside. From a cardiac standpoint, he is stable. Continues to have chest pain , but he has respiratory failure from pneumonia and is having pain with deep breathing. Review of Systems: Has chest pain and shortness of breath. No nausea, vomiting, or diarrhea. No dysuria, polyuria, or urgency. All other systems reviewed are negative. Physical Examination: Vital signs: Reviewed. Head and Neck: Pupils are equal, reactive to light. Intact eye movements. No JVD. No cervical lym phadenopathy. Neck: Supple. Thyroid is not enlarged. Lungs: Rhonchi bilaterally. No accessory muscle use or muscle retraction. Heart: Regular rate and rhythm. No extra sounds. Abdomen: Soft, nontender. Bowel sounds positive. No organomegaly. No masses or hernia. No rigidi ty or rebound. Extremities: No edema, clubbing, or cyanosis. Intact pulses. Skin: No rash. Neurologic: Alert, awake, oriented x3. No acute focal deficits appreciated. Investigations: BUN 12, creatinine 0.62, and hemoglobin is 12.1. Assessment/recommendations: 1.Short run of ventricular tachycardia. This is due to the severe illness that he has, respiratory failure, and sepsis and no further runs. Ischemia workup is negative. No further cardiac workup is needed and/or recommended. 2.Chest pain. Negative ischemia workup. I do not see a cardiac issue here. Echo was normal. Cardiology will be available for questions on as-needed basis. /MODL Voice ID: [id number] Report ID: [id number]
[2023-05-30] MEDS: DEXTROSE 10%-WATER 500 ML IV SCH ×2 (00:54→10:02)
[2023-05-30] MEDS: Meropenem 1,000 MG in NA CHLORIDE 0.9% 100 ML IV SCH ×2 (01:00→08:09)
[2023-05-30] MEDS: MORPHINE 2 MG/ML SYR IV PRN (01:27)
[2023-05-30] MEDS: ALBUTEROL 2.5 MG/3 ML NEB SOL IH SCH ×2 (01:50→08:00)
[2023-05-30 04:45] LABS: Absolute Lymphocytes (CBC) 0.3 K/uL (0.7-4.9); Hematocrit 36.9 % (39.6-49.0); Lymphocytes % 1.4 % (15.3-44.8); MCV 98.1 fL (80-100); MPV 7.8 fL (7.6-11.3); Platelets 433 thou/uL (152-406); RBC Red Blood Cell Count 3.76 M/uL (4.33-5.43)
[2023-05-30 06:24] VITALS: BMI 18.1
[2023-05-30 06:34] VITALS: TEMP 98.5
[2023-05-30 07:43] LABS: Albumin 2.4 g/dL (3.4-5.0); Bilirubin Total 0.3 mg/dL (0.2-1.0); Phosphorus 3.5 mg/dL (2.5-4.9); Potassium 3.9 mEq/L (3.5-5.1); Protein, Total 7.1 g/dL (6.4-8.2)
[2023-05-30 07:51] LABS: Blood Morphology Comment NOT SEEN (NOT SEEN); Platelet Estimate INCR; White Blood Cell Scan OK (OK)
[2023-05-30] MEDS: ARFORMOTEROL TARTRATE 15 MCG/2 ML VIAL.NEB NEB SCH (08:00)
[2023-05-30] MEDS: METHYLPREDNISOLONE 40 MG INJ IV SCH (08:09)
[2023-05-30] MEDS: Mupirocin NASAL 2 APPL/1 GM TUBE NAS SCH (08:09)
[2023-05-30] MEDS: AZITHROMYCIN IV 500 MG in NA CHLORIDE 0.9% 250 ML IVPB SCH (08:09)
[2023-05-30] MEDS ORDERED: POTASSIUM CL SA 10 MEQ TAB PO ONE (08:14)
--- NOTE | 2023-05-30 08:31 | P.PN ---
Subjective Date of Service: 05/30/23 Chief Complaint: Respiratory failure pneumonia Patient is doing much better no more no further nausea vomiting tolerating a diet currently on room air oxygen white count is declining Review of Systems General: Weakness Respiratory: Shortness of Breath Physical Examination - Vital Signs Temperature: 98.5 F Blood Pressure: 114/77 Pulse: 53 Respirations: 22 Pulse Ox (%): 97 - Physical Exam General: Alert, Oriented x3 Respiratory: Clear to auscultation bilaterally, Diminished Assessment And Plan - Current Problems (Diagnosis) (1) Pneumonia Current Visit: Yes Status: Acute Plan: Patient is 22 years of age admitted with acute lung injury I suspect from marijuana use in addition to nausea and vomiting he is improved is currently on room air plan to change him over to p.o. prednisone 20 mg twice a day and levofloxacin or doxycycline instead of meropenem patient's white count is declining vital signs are stable plan to ambulate patient wants to leave AMA his daughter is sick Qualifiers: Pneumonia type: due to unspecified organism Laterality: bilateral
--- NOTE | 2023-05-30 08:54 | P.PN ---
Date of Service: 05/30/23 Chief Complaint: SOB, n/v Subjective: Patient seen in ICU, nonlabored respirations on room air. Sitting in chair, fully dressed requesting to go home (against medical advice) Patient reports feeling better today. Improvement in cough and SOB. No nausea or vomiting. Physical Examination Temp Pulse Resp BP Pulse Ox 98.5 F 53 22 H 114/77 97 05/30/23 08:30 05/30/23 08:30 05/30/23 08:30 05/30/23 08:30 05/30/23 08:30 General: Alert, In no apparent distress, Oriented x3 HEENT: Atraumatic, Normocephalic Neck: JVD not distended Respiratory: Diminished. Nonlabored respirations on room air at this time. Cardiovascular: No edema. RRR. Gastrointestinal: Normal bowel sounds, Soft and benign Musculoskeletal: No clubbing, No swelling Integumentary: No rashes, No breakdown Neurological: Normal speech, Normal tone, Normal affect Laboratory Data - Reviewed Microbiology Data - Reviewed Imagings Data: - Reviewed Medication List: Reviewed Assessment and Plan Problem List Sepsis Bilateral Pneumonia Nausea/Vomiting Severe PCM Sepsis secondary to bilateral pneumonia - hx of marijuana use daily x 4 years - CT Chest 05/25: "Moderate linear opacities are present in both lung bases along the periphery, likely representing infection. " - COVID negative - Influenza A&B: negative - RSV: Negative - HIV 1&2 Ab: Nonreactive - No recent travel. works for [employer]. Denies exposure to chemicals. - Denies cigarette or vape use - pulmonology also on case - XR Chest 05/29: "Continued progression of patchy airspace opacities more prominent centrally and throughout the left lung. This again may represent worsening edema or multifocal pneumonia." - On Merrem (05/28-) and Azithromycin (05/26-). Also on steroid. - Sputum culture 05/28: Pending Intractable nausea and vomiting for 2 months - reports 30-40 lb weight loss within 2 [address] - [address] abdomen w contrast 05/25: "No acute intra-abdominal or pelvic finding" - abdominal ultrasound unremarkable - s/p EGD on 05/27 and colonoscopy 05/28 Blood cultures 05/25: No growth to date Leukocytosis improving (WBC 30.7 -> 23.9). Recommendations - Continue antibiotic therapy for at least 7 days (started 05/26-). Currently on merrem and azithromycin. Consider switch to Levaquin PO upon discharge. - Follow up with sputum culture results - Continue neb treatments - Monitor WBC and fever trends - Supportive care and nutritional support as needed. Case discussed with Isak Yanez
[2023-05-30] MEDS ORDERED: levoFLOXacin 500 MG TAB PO SCH (09:00)
[2023-05-30] MEDS ORDERED: predniSONE 20 MG TAB PO SCH (09:00)
[2023-05-30 09:31] VITALS: O2SAT 98
[2023-05-30 13:24] VITALS: BP 107/63
--- NOTE | 2023-05-30 13:25 | P.DS ---
Admission Date: 05/25/23 Discharge Date: 05/30/23 Disposition: AMA-LEFT AGAINST MEDICAL ADVIC Reason for Admission: Respiratory failure pneumonia Brief History of Present Illness: 22 yo M, PMH: Asthma presented to the ED with fever, chest pain, shortness of breath. Labwork done significant for leukocytosis (18.2). Patient developed a fever 3 days ago, associated with chills, sweats. He was recently seen at [facility] ~1-2 days ago where he was noted to have leukocytosis (~29), and subsequently discharged on empiric Cipro/Flagyl. CT chest in the ED reports moderate linear opacities are present in both lung bases, likely representing infection. Patient also reported worsening nausea/vomiting/diarrhea over the last ~2 months, now occurring daily, associated with lower abdominal pain. Symptoms are aggravated with eating/drinking, and laying on either side worsens abdominal pain. Alleviated by nothing. Denies difficulty swallowing. Reports throwing up "stomach acid and whatever I ate/drank" ~10 minutes after any volume of intake. Can only tolerate sips of water. Denies bloody emesis. Patient noted to smoke marijuana everyday for ~4 years, recently quit this past Saturday. Reports losing ~30-40lbs in the last 2-[address] abdomen, abdominal u/s in ED were both negative for any acute findings. Patient admitted for further management. Hospital Course: Diagnosis Sepsis secondary to bilateral pneumonia Chest Pain Vtach Intractable Nausea/Vomiting x 2 months Lower abdominal pain Severe Protein-Calorie Malnutrition ~30-40lb weight loss Hypophastemia Marijuana dependence h/o asthma Sepsis secondary to bilateral pneumonia CT Chest (05/25): Moderate linear opacities in both lung bases along the periphery, likely representing infection Blood culture: NGTD Reportedly WBC: 29k at [place], ~2 days prior to admission Repeat check x-ray: Central distribution of infiltrates, worsening infiltrate. Patient now requiring high flow oxygen. Continue treatment for bacterial pneumonia. Changed IV Rocephin to IV meropenem. Continue Zithromax. Sputum culture is pending. Pulmonary is following. Echocardiogram is normal. On IV steroid. Steroid contributing to worsening leukocytosis He was treated with PRN nebs Chest Pain Vtach V. tach probably secondary to hypoxia versus PICC line tip irritation of right atrium. Troponins negative x3, monitor on telemetry Nuclear stress test showed no stress-induced ischemia. Did reported fixed defect nonspecific for artifact. D-dimer: [address] Franklin saw patient and followed during the hospital stay. echo is unremarkable Intractable Nausea/Vomiting Lower abdominal pain Severe Protein-Calorie Malnutrition ~40lb weight loss Hypophastemia reports progressively worsening n/v for ~2 months; ~30-40lb weight loss since February 2023 daily vomiting, ~10min after trying to eat anything, regardless of volume Cannabis hyperemesis syndrome suspected. Status post EGD and colonoscopy which were unremarkable. CT abdomen (05/25): No acute intra-abdominal or pelvic finding Abdominal u/s (05/25): unremarkable Patient was unable to do a gastric emptying study due to significant hypoxia. Patient was treated with parenteral nutrition He later tolerated diet advancement to solid Patient decided to sign out against medical today stating he has a family emergency that he need to address immediately. He was made aware of the risk of signing out AMA including getting more sicker, hypoxia leading to cardiac arrest. Patient was offered prescription for prednisone and oral Levaquin which he agreed. I discussed with him 6 potential side effects of the prescribed medications and he voiced understanding and accepted the prescription. He is informed to return to the ED for any feeling of shortness of breath or if he feels he is getting sicker.. Marijuana dependence Cessation recommended. Vital Signs/Physical Exam: Temp Pulse Resp BP Pulse Ox 98.5 F 53 22 H 114/77 97 05/30/23 08:30 05/30/23 08:30 05/30/23 08:30 05/30/23 08:30 05/30/23 08:30 Laboratory Data at Discharge: WBC 23.90 thou/uL (4.3-10.9) H 05/30/23 04:15 Hgb 12.0 g/dL (13.6-17.9) L 05/30/23 04:15 Hct 36.9 % (39.6-49.0) L 05/30/23 04:15 Plt Count 433 thou/uL (152-406) H 05/30/23 04:15 PT 17.0 SECONDS (9.5-12.5) H 05/25/23 08:05 INR 1.55 05/25/23 08:05 APTT 35.9 SECONDS (24.3-36.9) 05/25/23 08:05 Sodium 138 mEq/L (136-145) 05/30/23 05:53 Potassium 3.9 mEq/L (3.5-5.1) 05/30/23 05:53 BUN 14 mg/dL (7-18) 05/30/23 05:53 Creatinine 0.48 mg/dL (0.70-1.30) L 05/30/23 05:53 Glucose 135 mg/dL (74-106) H 05/30/23 05:53 Phosphorus 3.5 mg/dL (2.5-4.9) 05/30/23 05:53 Magnesium 2.5 mg/dL (1.6-2.4) H 05/29/23 04:33 Total Bilirubin 0.3 mg/dL (0.2-1.0) 05/30/23 05:53 AST 82 U/L (15-37) H 05/30/23 05:53 ALT 114 U/L (16-61) H 05/30/23 05:53 Alkaline Phosphatase 66 U/L (45-117) 05/30/23 05:53 Triglycerides 66 mg/dL (<150) 05/27/23 04:45 Lipase 15 U/L (13-75) 05/27/23 08:34 Home Medications: levoFLOXacin [Levaquin*] 500 mg PO DAILY #7 tab 05/30/23 predniSONE [Prednisone*] 20 mg PO BID #14 tab 05/30/23 New Medications: levoFLOXacin [Levaquin*] 500 mg PO DAILY #7 tab predniSONE [Prednisone*] 20 mg PO BID #14 tab Followup: Olayinka Pena DO [Primary Care Provider] -
== END 2023-05-30 11:13 | disposition left against medical advice (07) | DRG 871 ==
LOC: ER 07:57 → ERHOLD 13:15 → 2ND 14:17 → 3RD-ICU 05-26 16:00
PROVIDERS: ADMIT Hospitalist; ATTEND Internal Medicine
PROC: 3E0336Z Introduction of Nutritional Substance into Peripheral Vein, Percutaneous Approach (ICD-10-PCS; 2023-05-26)
PROC: 02HV33Z Insertion of Infusion Device into Superior Vena Cava, Percutaneous Approach (ICD-10-PCS; 2023-05-26)
PROC: 0DB78ZX Excision of Stomach, Pylorus, Via Natural or Artificial Opening Endoscopic, Diagnostic (ICD-10-PCS; 2023-05-27)
PROC: 0DBH8ZX Excision of Cecum, Via Natural or Artificial Opening Endoscopic, Diagnostic (ICD-10-PCS; 2023-05-27)
PROC: 0DBP8ZX Excision of Rectum, Via Natural or Artificial Opening Endoscopic, Diagnostic (ICD-10-PCS; 2023-05-27)
PROC: 0DB68ZX Excision of Stomach, Via Natural or Artificial Opening Endoscopic, Diagnostic (ICD-10-PCS; principal; 2023-05-27 14:00)
DX: A41.9 Sepsis, unspecified organism (principal); E43 Unspecified severe protein-calorie malnutrition; J96.01 Acute respiratory failure with hypoxia; J18.9 Pneumonia, unspecified organism; Z68.1 Body mass index [BMI] 19.9 or less, adult; I47.20 Ventricular tachycardia, unspecified; R64 Cachexia; R65.20 Severe sepsis without septic shock; K29.00 Acute gastritis without bleeding; I49.3 Ventricular premature depolarization; J45.909 Unspecified asthma, uncomplicated; F12.20 Cannabis dependence, uncomplicated; Z79.899 Other long term (current) drug therapy
CPT/HCPCS: 0241U; 36415; 36569; 36600; 71045; 71250; 74177; 76705; 78452; 80048; 80053; 80076; 80307; 81001; 82164; 82805; 82947; 83605; 83690; 83735; 83880; 84100; 84132; 84134; 84145; 84478; 84484; 85025; 85379; 85610; 85730; 86140; 87040; 87070; 87205; 87389; 87635; 88305; 88312; 93005; 93017; 93306; 94660; 94760; 99285; A4216; A9500; C9113; J0171; J0696; J0744; J2001; J2185; J2270; J2405; J2704; J2785; J2920; J2930; J3010; J3475; J3480; J7030; J7040; J7050; J7120; J7512; J7605; J7613; Q9967

== ENCOUNTER → 2024-01-02 | Emergency (ER) | payer BC ==
[~2024-01-02] MED LIST: FAMOTIDINE 20 MG/2 ML VIAL IV ONE; LABETALOL 20 MG/4ML SYRINGE IV ONE; NA CHLORIDE 0.9% 1,000 ML ONE; NA CHLORIDE 0.9% 2,000 ML ONE; ONDANSETRON 4 MG/2 ML VIAL ONE; POTASSIUM 25 MEQ EFFERV TAB ONE; PROMETHAZINE INJ 25 MG/ML AMP ONE
--- OUTSIDE RECORDS SUMMARY | 2024-01-02 15:43 | XMS REPORT | Continuity of Care Document ---
Author Name Unknown Address [address] [facility] [address] [place] [address] [facility] thconnect Address [address] [facility] [place] [address] Care Team Providers Care Rn Labor And Delivery Name Role Phone PCP, PATIENT DOES NOT HAVE A Primary Care Physic rian Unavailable YANETH PERALTA Attending Clinician Unavailab Yaneth Joseph DO Attending Clinician YANETH PERALTA Admitting Clinician Unavailab pinto Payers Payer Name Policy Type Policy Number Effective Date Expirati on Date Source [facility] - OUT OF STATE [id number] 2021 00:00:00 Allergies, Adverse Reactions, Alerts Allergy Name Allergy Type Status Severity Reaction(s) Onset Date Inactive Date Treating Clinician Comments Source NO KNOWN ALLERGIE S Drug Class Active [facility] Social History Social Habit Start Date Stop Date Quantity Comments Source Gender identity [facility] Alcohol intake 2023-05-23 00:00:00 2023-05-23 00:00:00 Current non-drinker of alcohol (finding) [facility] History of Social function 2023-05-23 00:00:00 2023-05-23 00:00:00 [facility] Tobacco use and exposure 2013-12-03 00:00:00 2013-12-03 00:00:00 Smokeless tobacco non-user [facility] Tobacco Comment 2013-12-03 00:00:00 2013-12-03 00:00:00 Denies smoking exposure [facility] Sex Assigned At 2000 00:00:00 2000 00:00:00 [facility] Smoking Status Start Date Stop Date Source Never smoked tobacco [facility] Medications Ordered Medication Name Filled Medication Name Start Date Stop Date Current Medication? Ordering Clinician Indication Dosage Frequency Signature (SIG) Comments Components Source iopamidol (ISOVUE 370-500 mL) injection 100 mL 05-24 06:30: 00 05-24 06:30 :00 No [id number] 100mL 100 mL, Intravenou s, ONCE, 1 dose, On Sat05/24/23 at 0130, Routine [facility] NaCl 0.9% (NS) bolus infusion 1,000 mL 05-24 05:30: 00 05-24 06:50 :00 No 1000mL at 999 mL/hr, 1,000 mL, IV Infusion, ONCE, 1 dose, On Sat05/24/23 at 0030, [facility] ondansetron (ZOFRAN (PF)) injection 4 mg 05-24 04:45: 00 05-24 04:53 :00 No 4mg 4 mg, Slow IV Push, ONCE, 1 dose, On Leidy 05/23/23 at 2345, [facility] ondansetron 4 mg disintegrat ing tablet 05-24 00:00: 00 Yes [id number] 4mg Take 1 tablet by mouth every 8 (eight) hours as needed for Nausea and Vomiting (N/V). [facility] Vital Signs Vital Name Observation Time Observation Value Comments S tab Systolic blood pressure 2023-05-24 06:00:00 112 mm[Hg] [facility] Diastolic blood pressure 2023-05-24 06:00:00 76 mm[Hg] [facility] Heart rate 2023-05-24 06:00:00 99 /min [facility] Respiratory rate 2023-05-24 06:00:00 29 /min [facility] Oxygen saturation in Arterial blood by Pulse oximetry 2023-05-24 06:00:00 98 /min [facility] Body temperature 2023-05-24 04:34:00 37 Jennifer [facility] Body height 2023-05-24 04:34:00 167.6 cm [facility] Body weight 2023-05-24 04:34:00 52.708 kg [facility] BMI 2023-05-24 04:34:00 18.76 kg/m2 [facility] Procedures Procedure Date / Time Performed Performing Clinicia n Source CT ABDOMEN PELVIS W CONTRAST 2023-05-24 05:44:31 Yaneth Peralta [facility] LIPASE 2023-05-24 04:48:00 [facility] 2023-05-24 04:48:00 Yaneth Peralta [facility] COMP. METABOLIC PANEL (32148) 2023-05-24 04:48:00 Yaneth Peralta [facility] CBC WITH DIFF 2023-05-24 04:48:00 [facility] HIV 1/2 AG-AB WITH REFLEX 2023-05-24 04:48:00 Yaneth Peralta [facility] NOTICE OF PRIVACY PRACTICES 2023-05-24 04:28:10 Doctor Unassigned, [place] [facility] CONSENT/REFUSAL FOR DIAGNOSIS AND TREATMENT 2023-05-24 04:27:39 Doctor Unassigned, [place] [facility] Encounters Start Date/Time End Date/Time Encounter Type Admission Type Attending Clinicians Care Facility Care Department Encounter ID Source 2023-05-23 23:38:00 2023-05-24 01:50:00 Emergency X YANETH PERALTA [facility] ERT [id number] [facility] 2023-05-23 23:38:00 2023-05-24 01:50:00 Emergency Yaneth Peralta [facility] [id number] [facility] Results Test Description Test Time Test Comments Results Result Co mments Source [facility]-AB WITH HOTTCO3382-12-68 05:53:38* Test Item Value Reference Range Interpretation Comme nts HIV Semi-quantitative (test code = 37453-8) 0.13 Negative ESTRELLA (test code = ESTRELLA) Non-reactive for HIV-1 antigen and HIV-1/HIV-2 antibodies. ?No laboratory evidence of HIV infection. ?Repeat in 2-4 weeks if acute HIV infection is suspected. [facility]2023-08-04 05:13:54* Test Item Value Reference Range Interpretation Comme nts MAGNESIUM (test code = 3425065106) 1.9 mg/dL 1.7-2.4 Lab Interpretation (test cod e = 26430-0) Normal [facility] MET[facility]OLIC PANEL (41947)2023-05-24 05:13:33* Test Item Value Reference Range Interpretation Comme nts NA (test code = 1396780793) 139 mmol/L 135-145 K (test code = 3593992440) 3.3 mmol/L 3.5-5.0 L CL (test code = 2297592732) 98 mmol/L 98-108 CO2 TOTAL (test code = 3053561300) 28 mmol/L 23-31 AGAP (test code = 4542293986) 13 2-16 BUN (test code = 0126473246) 14 mg/dL 7-23 GLUCOSE (test code = 4723600593) 122 mg/dL 70-110 H CREATININE (test code = 6274313906) 0.76 mg/dL 0.60-1.25 TOTAL BILI (test code = 6099653058) 1.6 mg/dL 0.1-1.1 H CALCIUM (test code = 2716055939) 9.5 mg/dL 8.6-10.6 T PROTEIN (test code = 1877267487) 9.2 g/dL 6.3-8.2 H ALBUMIN (test code = 0028572663) 4.8 g/dL 3.5-5.0 ALK PHOS (test code = 7913328366) 88 U/L 34-122 ALTv (test code = 1742-6) 14 U/L 5-50 AST(SGOT) (test code = 4367944107) 25 U/L 13-40 eGFR (test code = 3618933438) 127.1 mL/min/1.73m2 ESTRELLA (test code = ESTRELLA) Association of [...] or abnormalities in imaging tests). Lab Interpretation (test code = 04631-9) Abnormal [facility]2023-[facility]-04 05:13:33* Test Item Value Reference Range Interpretation Comme nts LIPASE (test code = 1195213422) 25 U/L 0-220 Lab Interpretation (test cod e = 82333-6) Normal [facility] Notes Date/Time Note Provider Source 2023-05-24 01:50:00 MXkh2OlGD/o5xDgMXTFF E+8iZEGpT4Ddj +QFAFplVVuM/iVk2B/FYm1mRG81f/2t20 12-06-04T01:50:00 Awake, alert oriented X4, respiratory even and unlabored,skin w/d color appropriate for race, moves all ext well, pt encouraged to follow up with pcp and or return as neededPt given printed and verbal discharge instructions regarding Generalized abd pain, Leukocytosis , patient verbralized understanding and signature obtained, patient denies any other concerns. Advised to seek medical attention for new/prolonged/worsening of symptoms, No adverse reaction to meds given in ER noted upon dischargePt [facility]ulated [facility] 80599-6Dfwvgfwxs department XkzlPD1753-75-09B11:12:56[facility] NoteTXT1.2.840.501738.1.13.104.2. 7.2.490748|[id number] for patient [id number] J Hoot RN[address]vdGal[address]on[place] 688UCKBCKNSRIWCWOPXVVBKPO3569-66- 04T03:12:561.2.840.768038.1.72.3. 15|1.2.840.682398.1.13.104.2.7.2. [id number] Sweta Berumen RN [facility] 2023-05-23 23:32:40 8iDnIWt9mYgV0nKx0BrJ l/H4lWQoEQLtT X6HcOjnOOzLlmM7GrJTnAZzJIKCTsHn54 12-06-03T23:32:40 Pt arrived ambulatory with lower abdomen pain x3 weeks and worse this week. Pt reportedly saw PCP and was supposed to get referral to GI but says they never sent the referral. Pt reports daily vomiting. Pt states in March he was diagnosed with gallbladder sludge and has lost 40lbs since then. 85463-1Urrxgtghz department Triage rjiuNA0246-84-42M14:36:42Emergenc y department Triage noteTXT1.2.840.303642.1.13.104.2. 7.2.440388|[id number] for patient oudx88340-3Wslxzfmjf department [id number] D Roman RN[address] PumgRhzjupocfDwkjtqgjiSBGW5732618 824HBUZJZXWYYECOLDWTATJUD9817-14- 03T23:36:421.2.840.451894.1.72.3. 15|1.2.840.454592.1.13.104.2.7.2. 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 He also complains of chronic nausea, vomiting and diarrhea throughout the past 3 months. No sick contacts. No fevers or chills. He does admit to a 40 pound weight loss since March. He reports he was seen in March at [facility] and diagnosed with gallbladder sludge. He feels this is the cause of his symptoms. No medications for his symptoms. No history of diabetes or high blood pressure. He does smoke. No previous abdominal surgeries.Here for evaluation.Past Medical History/Immunizations:Past Medical History: Diagnosis Date Asthma Heart murmur Resolved Tetanus received in last 5 years: Unknown Allergies:No Known AllergiesPast Social History:Tobacco Use Never smoked or used smokeless tobacco. Comments: Denies smoking exposure Alcohol Use No. Drug Use No. Sexual Activity Not sexually active. Past Surgical History:Past Surgical History: Procedure Laterality Date CIRCUMCISION Review of Systems: Review of Systems Constitutional: Negative for chills and fever. Respiratory: Negative for cough and shortness of breath. Cardiovascular: Negative for chest pain. Gastrointestinal: Positive for abdominal pain, diarrhea, nausea and vomiting. Genitourinary: Negative for dysuria. [...] 97 % Measured on Room air Physical ExamVitals and nursing note reviewed. Constitutional: General: He is not in acute distress. Appearance: Normal appearance. He is normal weight. He is not ill-appearing. HENT: Head: Normocephalic and atraumatic. Mouth/Throat: Mouth: Mucous membranes are dry. Cardiovascular: Rate and Rhythm: Normal rate and regular rhythm. Pulses: Normal pulses. Pulmonary: Effort: Pulmonary effort is normal. No respiratory distress. Breath sounds: No stridor. No wheezing or rhonchi. Abdominal: General: There is no distension. Palpations: Abdomen is soft. There is no mass. Tenderness: There is no abdominal tenderness. There is no guarding. Hernia: No hernia is present. Musculoskeletal: General: Normal range of motion. Cervical back: Normal range of motion and neck supple. Skin: General: Skin is warm and dry. Neurological: General: No focal deficit present. Mental Status: He is alert and oriented to person, place, and time. Radiology:CT ABDOMEN PELVIS W CONTRAST Final Result Exam: CT Abdomen and Pelvis With Contrast, 05/24/2023 12:30 AM. Ordering Physician: YANETH PERALTA. History: Generalized abdominal pain. Comparison: None. Technique: CT abdomen and pelvis was obtained with intravenous contrast. CT was performed according to ALARA (As Low As Reasonably Achievable). Technical Quality: Adequate. Findings: CT Abdomen: Lower Thorax: Mild bibasilar subpleural groundglass opacities are demonstrated. Heart size is normal. Organs: Liver, pancreas, spleen, and adrenal glands are normal. Biliary Tree: Gallbladder is normal. There is no pancreatic or biliary duct dilatation. Urinary Tract: Kidneys are symmetric in size. There is no hydronephrosis or hydroureter. Peritoneal/Retroperitoneal: There is no free air or free fluid. There is no abdominal adenopathy. Vascular: Unremarkable. Body Wall: Unremarkable. Gastrointestinal: Moderate gaseous distention of the stomach is noted. Fluid-filled, nondilated small bowel loops are noted. There is diffuse small bowel mucosal fold thickening. There is no evidence of bowel obstruction. Appendix is normal. Osseous: Unremarkable. CT Pelvis: Genitourinary: Urinary bladder is unremarkable. Prostate and seminal vesicles are not enlarged. Peritoneal/Extraperitoneal: There is no pelvic free fluid. There is no pelvic adenopathy. Osseous/Soft Tissues: Unremarkable. IMPRESSION Impression: 1. Fluid-filled, nondilated small bowel loops with mucosal fold thickening, suggestive of enteritis. 2. Normal appendix. No free air or free fluid. RL: 2824 End of Report Lab Results:Lab Results CBC WITH DIFF - Abnormal Result [...] MAT x10^3(ANC) 15.97 (*) 1.99 - 6.95 10*3/uL IMM GRAN x10^3 0.09 (*) 0.00 - 0.06 10*3/uL LYMPH x10^3 0.79 (*) 1.09 - 3.23 10*3/uL MONO x10^3 0.94 0.36 - 1.02 10*3/uL EOS x10^3 <0.03 (*) 0.06 - 0.53 10*3/uL BASO x10^3 0.04 0.01 - 0.09 10*3/uL BANDS Increased (*) COMP. METABOLIC PANEL (34512) - Abnormal NA 139 135 - 145 [...] with Reflex Negative Negative HIV Semi-quantitative 0.13 EKG:If EKG completed, see Procedure Note. Orders and Treatments:Orders Placed This Encounter Procedures CT ABDOMEN PELVIS W CONTRAST CBC WITH DIFF COMP. METABOLIC PANEL (11401) LIPASE MAGNESIUM HIV 1/2 AG-AB WITH REFLEX Orders Placed This Encounter Medications NaCl 0.9% (NS) bolus infusion 1,000 mL ondansetron (ZOFRAN (PF)) injection 4 mg iopamidol (ISOVUE 370-500 mL) injection 100 mL First Provider Eval:ED Events Date/Time Event User Comments 05/23/232328 Medical Screening Begins YANETH PERALTA DO -- 05/23/232328 First Provider Evaluation YANETH PERALTA DO -- No notes of EC Admission Criteria type on file.ED COURSEDiagnosis/Impression as of 05/24/23 0144 Generalized abdominal pain Leukocytosis, unspecified type Procedures: ProceduresMDM:Medical Decision MakingThe patient presents for eval for worsening umbilical pain that he has had for the past 3 months. He also admits to vomiting and diarrhea during that time. No fevers. No dysuria or hematuria. 40lb weight loss since March. [facility] and [facility] with GB sludge. No meds for sx. VSS here in the EC. Abdomen is soft and not tender. No rebound or guarding.DDx includes PUD, GERD, pancreatitis, HIV, Will check laboratory studies including screening the patient for HIV and covid. Will give IV fluids and antiemetics. Will continue to monitor the patient here in the EC. Final dispo pending. 0144 -the patient is doing well in the ER.His laboratory studies do show a leukocytosis of 17,000.The CT of his abdomen pelvis shows possible enteritis but no other acute intra-abdominal pathology.He is feeling better here in the ER and is okay for discharge home with PCP follow-up.Problems Addressed:Generalized abdominal pain: acute illness or injuryAmount and/or Complexity of Data ReviewedLabs: ordered. Decision-making details documented in ED Course.Radiology: ordered and independent interpretation performed. Decision-making details documented in ED Course.RiskPrescription drug management. Flowsheet Documentation: Scoring Tools: No data recorded Disposition/Condition:ED Disposition ED Disposition Disch - Home Condition Stable Comment -- Discharge Medications:Patient's Medications No medications on file Follow-up:Contact information for follow-up Ralf Nelson Specialty: PED-PEDIATRICS Relationship: PCP - Medicaid HMO [id number] [place] [id number] Electronically signed by: Yaneth Peralta DO05/24/23 0145 67074-7Xpilyatqo Emergency department UarqKO1239-81-99H81:45:05Physicia n Emergency department NoteTXT1.2.840.336273.1.13.104.2. 7.2.152153|[id number] for patient fpjo98691-1Dldugxflz department Note[address] TuumTuwkrynpfMqysurnsoDUCK8095269 354HWUMQCARRMOUMTSZGCZLAW7470-59- 04T01:45:051.2.840.196702.1.72.3. 15|1.2.840.370137.1.13.104.2.7.2. [id number] [facility]
[2024-01-02 17:07] LABS: Absolute Basophils 0.1 K/uL (0-0.5); Absolute Lymphocytes (CBC) 0.3 K/uL (0.7-4.9); Absolute Monocytes 0.9 K/uL (0.1-1.3); Absolute Neutrophil 16.5 K/uL (1.8-8.0); Basophils % 0.4 % (0-1.3); Hematocrit 45.1 % (39.6-49.0); Hemoglobin 15.7 g/dL (13.6-17.9); Lymphocytes % 1.6 % (15.3-44.8); MCH 32.4 pg (27.0-35.0); MCHC 34.7 g/dL (32.0-36.0); MCV 93.5 fL (80-100); MPV 8.8 fL (7.6-11.3); Platelets 259 thou/uL (152-406); RBC Red Blood Cell Count 4.83 M/uL (4.33-5.43); Red Cell Distribution Width 13.1 % (12.1-15.2)
--- NOTE | 2024-01-02 17:11 | RAD REPORT ---
EXAM DESCRIPTION: RAD - Chest Single View - 01/02/2024 4:59 pm CLINICAL HISTORY: CHEST PAIN Chest pain. COMPARISON: <Comparisons> FINDINGS: Portable technique limits examination quality. The lungs are grossly clear. The heart is normal in size. No displaced fractures. IMPRESSION: No acute intrathoracic process suspected.
[2024-01-02 17:18] LABS: PT Prothrombin Time 15.7 SECONDS (9.5-12.5); Protime INR 1.44
[2024-01-02 17:37] LABS: ALT/SGPT 19 U/L (16-61); Albumin 4.2 g/dL (3.4-5.0); Albumin/Globulin Ratio 0.9 (1.1-1.8); Alkaline Phosphatase 85 U/L (45-117); BUN Blood Urea Nitrogen 12 mg/dL (7-18); Bicarbonate 22 mEq/L (21-32); Bilirubin Direct 0.4 mg/dL (0-0.2); Bilirubin Indirect, Calculated 1.3 mg/dL (0.2-0.8); Bilirubin Total 1.7 mg/dL (0.2-1.0); Globulin 4.6 g/dL (2.3-3.5); Glomerular Filtration Rate 95 ml/min (=/>90); Glucose Level 128 mg/dL (74-106); Lipase 12 U/L (13-75); Magnesium 1.9 mg/dL (1.6-2.4); Protein, Total 8.8 g/dL (6.4-8.2); Sodium Level 135 mEq/L (136-145)
[2024-01-02 17:39] LABS: AST/SGOT < 4 U/L (15-37)
[2024-01-02 18:38] LABS: Specific Gravity 1.011 (1.005-1.030); Sqamous Epithelial None Seen /HPF (None Seen); Urine Bacteria None Seen /HPF (<20); Urine Bilirubin NEGATIVE (Negative); Urine Blood Negative (Negative); Urine Clarity Clear (Clear); Urine Color Light-Yellow (Yellow); Urine Crystals Unidentified Few /HPF (None Seen); Urine Culture Reflex Order NOT NEEDED; Urine Glucose NEGATIVE (Negative); Urine Ketones 2+ (Negative); Urine Micro Reflex YN NO BILL MICROSCOPIC; Urine Mucus Slight /HPF (None Seen); Urine Nitrite NEGATIVE (Negative); Urine Protein NEGATIVE (Negative); Urine RBC <5 /HPF (None Seen); Urine Urobilinogen Normal (Normal); Urine WBC <5 /HPF (<5); Urine pH 6.5 (5.0-7.0)
--- NOTE | 2024-01-02 19:03 | RAD REPORT ---
EXAM DESCRIPTION: CTAbdomen Pelvis W Contrast - 01/02/2024 6:56 pm CLINICAL HISTORY: Abdominal pain. ABD PAIN COMPARISON: <Comparisons> TECHNIQUE: Biphasic CT imaging of the abdomen and pelvis was performed with 100 ml non-ionic IV cont rast. All CT scans are performed using dose optimization technique as appropriate and may include automated exposure control or mA/KV adjustment according to patient size. FINDINGS: Linear atelectasis is present in both posterior lung bases. The liver, spleen, pancreas, adrenal glands and kidneys are within normal limits. No bowel obstruction, free air, free fluid or abscess. Mild sigmoid diverticulosis without diverticul itis. The appendix is normal. No evidence of significant lymphadenopathy. No suspicious bony findings. IMPRESSION: No acute intra-abdominal or pelvic finding.
[2024-01-02 19:46] LABS: Barbiturates NEGATIVE (NEGATIVE); Benzodiazepines NEGATIVE (NEGATIVE); Cocaine NEGATIVE (NEGATIVE); METHAMPHETAM NEGATIVE (NEGATIVE); Methadone NEGATIVE (NEGATIVE); Opiates NEGATIVE (NEGATIVE); Phencyclidine NEGATIVE (NEGATIVE); THC Cannibis POSITIVE (NEGATIVE)
[2024-01-02 20:31] LABS: Blood Morphology Comment NOT SEEN (NOT SEEN); Platelet Estimate ADEQ; White Blood Cell Scan OK (OK)
--- NOTE | 2024-01-02 21:10 | EDPHYS ---
Physician Documentation [facility] Name: Joe Steiner Age: 23 yrs Sex: Male : 2000 Arrival Date: 01/02/2024 Time: 15:38 Bed 5 Private MD: ED Physician Benito Menon HPI: 01/01 16:35 This 23 yrs old Male presents to ER via Wheelchair with complaints of Chest cp Pain, Vomiting. Historical: - Allergies: 16:24 No Known Allergies; iw - Home Meds: 16:24 None [Active]; iw - PMHx: 16:24 Asthma; iw - PSHx: 16:24 None; iw - Immunization history:: Adult Immunizations up to date. - Social history:: Smoking status: Patient denies any tobacco usage or history of. ROS: 16:40 Constitutional: Positive for poor PO intake, Negative for fever, cp 16:40 Eyes: Negative for injury, pain, redness, and discharge, cp 16:40 ENT: Negative for drainage from ear(s), ear pain, difficulty swallowing, difficulty handling secretions, 16:40 Cardiovascular: Positive for chest pain, 16:40 Respiratory: Negative for cough, wheezing, 16:40 Abdomen/GI: Positive for abdominal pain, nausea and vomiting, anorexia, Negative for diarrhea, constipation, hematemesis, black/tarry stool, 16:40 Neuro: Negative for altered mental status, dizziness, headache, loss of consciousness, syncope, 16:40 All other systems are negative, Exam: 16:45 Constitutional: The patient appears in no acute distress, alert, awake, cp non-diaphoretic, non-toxic, well developed, well nourished, uncomfortable, 16:45 Head/Face: Normocephalic, atraumatic. cp 16:45 Eyes: Periorbital structures: appear normal, Pupils: equal, round, and reactive to light and accomodation, Extraocular movements: intact throughout, Conjunctiva: normal, no exudate, no injection, Sclera: no appreciated abnormality, Lids and lashes: appear normal, bilaterally, 16:45 ENT: External ear(s): are unremarkable, Nose: is normal, Mouth: Lips: moist, Oral mucosa: pink and intact, moist, Posterior pharynx: is normal, airway is patent, no erythema, no exudate, 16:45 Chest/axilla: Inspection: normal, Palpation: is normal, no crepitus, no tenderness, 16:45 Cardiovascular: Rate: tachycardic, Rhythm: regular, Edema: is not appreciated, JVD: is not appreciated, 16:45 Respiratory: the patient does not display signs of respiratory distress, Respirations: normal, no use of accessory muscles, no retractions, labored breathing, is not present, Breath sounds: are clear throughout, no decreased breath sounds, no stridor, no wheezing, 16:45 Abdomen/GI: Inspection: abdomen appears normal, Bowel sounds: active, all quadrants, Palpation: soft, in all quadrants, moderate abdominal tenderness, in the epigastric area, rebound tenderness, is not appreciated, voluntary guarding, is elicited in the epigastric area, 16:45 Back: pain, is absent, ROM is normal, 16:45 Skin: cellulitis, is not appreciated, no rash present. 16:45 Neuro: Orientation: to person, place \T\ time. Mentation: is normal, Motor: moves all fours, strength is normal, Sensation: is normal, Vital Signs: 16:26 BP 112 / 78; Pulse 133; Resp 20 S; Pulse Ox 98% on R/A; kc6 16:44 Temp 98.7(O); Weight 58.97 kg (R); Height 5 ft. 6 in. (R); kc6 17:28 BP 100 / 65; Pulse 111; Resp 17 S; Pulse Ox 98% on R/A; kc6 18:17 BP 123 / 71; Pulse 136; Resp 19 S; Pulse Ox 100% on R/A; Pain 2/10; kc6 18:31 BP 111 / 76; Pulse 122; Resp 18 S; Pulse Ox 97% on R/A; Pain 2/10; kc6 20:14 BP 102 / 73; Pulse 123; Resp 18 S; Pulse Ox 99% on R/A; jw7 20:57 BP 113 / 73; Pulse 115; Resp 18; Pulse Ox 99% ; vc1 21:51 BP 103 / 65; Pulse 122; Resp 18; Pulse Ox 95% ; vc1 22:05 BP 111 / 70; Pulse 99; Resp 20; Pulse Ox 94% ; vc1 16:44 Body Mass Index 20.98 (58.97 kg, 167.64 cm) kc6 18:17 Pain Scale: Adult kc6 18:31 Pain Scale: Adult kc6 MDM: 16:23 Patient medically screened. 17:00 Differential diagnosis: abnormal EKG, acute myocardial infarction, acute pericarditis, cp cholecystitis, Cholelithiasis gastritis, cholecystitis, pancreatitis, appendicitis, viral gastroenteritis, gastroenteritis, gastritis, gastroesophageal reflux disease (GERD), Julia-Alcantara syndrome, peptic ulcer disease, pericarditis, pneumonia, pneumothorax, pulmonary embolus. 21:06 Data reviewed: vital signs, nurses notes, lab test result(s), EKG, radiologic studies, cp CT scan, plain films. Response to treatment: the patient's symptoms have markedly improved after treatment, patient is well hydrated. ED course: VSS. Patient requesting discharge to home for continued monitoring. 21:08 I considered the following discharge prescriptions or medication management in the emergency department Medications were administered in the Emergency Department. See MAR. 21:08 Consideration of Admission/Observation Escalation of care including admission/observation considered. Independent interpretation of the following test(s) in the Emergency Department EKG: See my EKG interpretation above. Counseling: I had a detailed discussion with the patient and/or guardian regarding the historical points, exam findings, and any diagnostic results supporting the discharge/admit diagnosis, lab results, radiology results, the need for outpatient follow up, a clinical exercise specialist, to return to the emergency department if symptoms worsen or persist or if there are any questions or concerns that arise at home. Special discussion: Based on the patient's history, exam, and Dx evaluation, there is no indication for emergent intervention or inpatient Tx. It is understood by the patient/guardian that if the Sx's persist or worsen they need to return immediately for re-evaluation. Based on the patient's Hx, exam, and Dx evaluation, there is no indication for emergent surgery or inpatient Tx. It is understood by the patient/guardian that if the Sx's persist or worsen they need to return immediately for re-evaluation. 01/01 16:31 Order name: Basic Metabolic Panel; Complete Time: 18:03 01/01 18:03 Interpretation: Normal except: NA 135; K 3.0; GLUC 128. 01/01 16:31 Order name: CBC with Diff; Complete Time: 21:48 cp 01/01 18:03 Interpretation: Normal except: WBC 17.80; DAVID% 93.0; LYM% 1.6; NEUT A 16.5; LYMA 0.3. cp 03/14 16:31 Order name: D-Dimer; Complete Time: 18:03 cp /14 16:31 Order name: LFT's; Complete Time: 18:03 cp /14 16:31 Order name: Magnesium; Complete Time: 18:03 cp 01/01 16:31 Order name: PT-INR; Complete Time: 18:03 cp 01/01 16:31 Order name: Troponin HS; Complete Time: 18:03 cp 14 16:31 Order name: Lipase; Complete Time: 18:03 cp 01/01 16:33 Order name: Urinalysis W/Microscopic; Complete Time: 19:27 cp 01/01 16:33 Order name: UDS; Complete Time: 19:48 cp /14 20:31 Order name: CBC Smear Scan; Complete Time: 21:48 EDMS 01/01 16:31 Order name: XRAY Chest (1 view); Complete Time: 18:03 cp 14 18:04 Order name: CT Abd/Pelvis - IV Contrast Only; Complete Time: 19:27 cp 14 16:31 Order name: EKG; Complete Time: 16:32 cp 14 16:31 Order name: Cardiac monitoring; Complete Time: 16:37 cp 14 16:31 Order name: EKG - Nurse/Tech; Complete Time: 16:37 cp /14 16:31 Order name: IV Saline Lock; Complete Time: 16:37 cp 01/01 16:31 Order name: Labs collected and sent; Complete Time: 16:37 cp 14 16:31 Order name: O2 Per Protocol; Complete Time: 16:37 cp 14 16:31 Order name: O2 Sat Monitoring; Complete Time: 16:37 cp /14 16:31 Order name: IV; Complete Time: 16:37 cp /14 19:40 Order name: PO challenge; Complete Time: 20:18 cp Administered Medications: 16:37 Drug: NS 0.9% IV 1000 ml IV at 1 bolus Per protocol; 1000 mL bolus Route: IV; Rate: 1 kc6 bolus; Site: right antecubital; 18:18 Follow up: Response: No adverse reaction; IV Status: Completed infusion; IV Intake: kc6 1000ml 16:37 Drug: NS 0.9% IV 1000 ml IV at 1 bolus Per protocol; 1000 mL bolus Route: IV; Rate: 1 kc6 bolus; Site: right antecubital; 18:18 Follow up: Response: No adverse reaction; IV Status: Completed infusion; IV Intake: kc6 1000ml 16:44 Drug: Ondansetron IVP 4 mg IVP once; over 2 minutes Route: IVP; Site: right antecubital;kc6 18:18 Follow up: Response: No adverse reaction; Nausea is decreased kc6 16:44 Drug: Famotidine IVP 20 mg IVP once; dilute with 10 mL 0.9% NaCl; give over 2 minutes kc6 Route: IVP; Site: right antecubital; 18:18 Follow up: Response: No adverse reaction; Pain is decreased kc6 18:31 Drug: Labetalol IV 10 mg IV at calculated rate once Route: IV; Rate: calculated rate; kc6 Site: right antecubital; 20:48 Follow up: Response: No adverse reaction; Blood pressure is lowered; IV Status: jw7 Completed infusion; IV Intake: 10ml 18:31 Drug: NS 0.9% IV 1000 ml IV at 250 ml/hr Per protocol; 1000 mL bolus Route: IV; Rate: kc6 250 ml/hr; Site: right antecubital; 22:11 Follow up: Response: No adverse reaction; IV Status: Completed infusion; IV Intake: jw7 800ml 19:37 Drug: Potassium PO Effervescent Tablet 25 mEq PO once; dissolve in 4 ounces of water or jw7 juice Route: PO; 21:53 Follow up: Response: No adverse reaction vc1 19:55 Drug: Promethazine IVP 25 mg IVP once Route: IVP; Site: right antecubital; jw7 21:53 Follow up: Response: No adverse reaction; Marked relief of symptoms vc1 20:18 Drug: Potassium PO Effervescent Tablet 50 mEq PO once; dissolve in 4 ounces of water or jw7 juice Route: PO; 21:53 Follow up: Response: No adverse reaction vc1 Disposition: 01/02 09:00 Co-signature as Attending Physician, Benito Menon MD I reviewed the patient's care rt provided by the Advanced Practice Provider and agree with the diagnosis and treatment plan. Disposition Summary: 01/02/24 21:09 Discharge Ordered Notes: Location: Home cp Problem: new cp Symptoms: have improved cp Condition: Stable cp Diagnosis - Chest pain, unspecified cp - Nausea with vomiting, unspecified cp - Tachycardia, unspecified cp Followup: cp - With: Private Physician - When: 2 - 3 days - Reason: Recheck today's complaints Discharge Instructions: - Discharge Summary Sheet cp - Nonspecific Chest Pain, Adult cp - Nausea and Vomiting, Adult cp - Sinus Tachycardia cp Forms: - Medication Reconciliation Form cp - Thank You Letter cp - Antibiotic Education cp - Prescription Opioid Use cp - Patient Portal Instructions cp - Leadership Thank You Letter cp Prescriptions: - Pepcid 20 mg Oral tablet - take 1 tablet ORAL route every 12 hours for 10 days; 20 tablet; Refills: 0, cp Product Selection Permitted - Metoprolol Tartrate 25 mg Oral tablet - take 0.5 tablet ORAL route 2 times per day with a meal; 20 tablet; Refills: 0, cp Product Selection Permitted - promethazine 25 mg Oral Tablet - take 1 tablet ORAL route every 6 hours As needed; 20 tablet; Refills: 0, cp Product Selection Permitted Signatures: Dispatcher [employer] Tati Lau RN RN iw Julio Moser PA PA cp Jackeline Buitrago RN RN jw7 Oxana Vasquez RN RN kc6 Benito Menon MD MD rt Vesta Steiner RN vc1
--- NOTE | 2024-01-02 21:10 | ER ---
Nurse's Notes [facility] Name: Joe Steiner Age: 23 yrs Sex: Male : 2000 Arrival Date: 01/02/2024 Time: 15:38 Bed 5 Private MD: Diagnosis: Chest pain, unspecified;Nausea with vomiting, unspecified;Tachycardia, unspecified Presentation: 01/01 16:24 Chief complaint: Patient states: chest pain and vomiting X 2 days, feels numb all over. iw Coronavirus screen: Client presents with at least one sign or symptom that may indicate coronavirus-19. Ebola Screen: Patient negative for fever greater than or equal to 101.5 degrees Fahrenheit, and additional compatible Ebola Virus Disease symptoms Patient denies exposure to infectious person. Patient denies travel to an Ebola-affected area in the 21 days before illness onset. No symptoms or risks identified at this time. Risk Assessment: Do you want to hurt yourself or someone else? Patient reports no desire to harm self or others. Onset of symptoms was December 31, 2023. 16:24 Method Of Arrival: Wheelchair 16:24 Acuity: OPAL 2 iw 16:44 Initial Sepsis Screen: Does the patient meet any 2 criteria? RR > 20 per min. HR > 90 kc6 bpm. Does the patient have a suspected source of infection? No. Patient's initial sepsis screen is negative. Historical: - Allergies: 16:24 No Known Allergies; iw - Home Meds: 16:24 None [Active]; iw - PMHx: 16:24 Asthma; iw - PSHx: 16:24 None; iw - Immunization history:: Adult Immunizations up to date. - Social history:: Smoking status: Patient denies any tobacco usage or history of. Screenin:27 [facility] ED Fall Risk Assessment (Adult) History of falling in the last 3 months, kc6 including since admission No falls in past 3 months (0 pts) Confusion or Disorientation No (0 pts) Intoxicated or Sedated No (0 pts) Impaired Gait No (0 pts) Mobility Assist Device Used No (0 pt) Altered Elimination No (0 pt) Score/Fall Risk Level 0 - 2 = Low Risk. Abuse screen: Denies threats or abuse. Denies injuries from another. Nutritional screening: No deficits noted. Tuberculosis screening: No symptoms or risk factors identified. Assessment: 16:27 General: Appears in no apparent distress. uncomfortable, well groomed, well developed, kc6 Behavior is cooperative, anxious. Pain: Complains of pain in chest Pain does not radiate. Pain began 1 day ago. Neuro: Level of Consciousness is awake, alert, obeys commands, Oriented to person, place, time, situation, Appropriate for age Reports dizziness. Cardiovascular: Reports chest pain, Heart tones S1 S2 present Capillary refill < 3 seconds Rhythm is sinus tachycardia. Respiratory: Reports shortness of breath Airway is patent Trachea midline Respiratory effort is even, unlabored, Respiratory pattern is regular, symmetrical. GI: Reports nausea, Patient currently denies abdominal pain, diarrhea, vomiting. : No signs and/or symptoms were reported regarding the genitourinary system. EENT: No signs and/or symptoms were reported regarding the EENT system. Derm: No signs and/or symptoms reported regarding the dermatologic system. Skin is intact, is healthy with good turgor, Skin is dry, Skin is pale, Skin temperature is warm. Musculoskeletal: No signs and/or symptoms reported regarding the musculoskeletal system. Circulation, motion, and sensation intact. Capillary refill < 3 seconds, Range of motion: intact in all extremities. 17:28 Reassessment: Patient appears in no apparent distress at this time. No changes from kc6 previously documented assessment. Patient and/or family updated on plan of care and expected duration. Pain level reassessed. Patient is alert, oriented x 3, equal unlabored respirations, skin warm/dry/pink. Patient states feeling better. Patient states symptoms have improved. 18:17 Reassessment: Patient appears in no apparent distress at this time. No changes from kc6 previously documented assessment. Patient and/or family updated on plan of care and expected duration. Pain level reassessed. Patient is alert, oriented x 3, equal unlabored respirations, skin warm/dry/pink. MARIIA Kim notified that pts HR is still 135bpm Patient denies pain at this time. Patient states feeling better. Patient states symptoms have improved. 19:00 General: Appears in no apparent distress. comfortable, Behavior is calm, cooperative. jw7 19:00 Pain: Complains of pain in chest Pain does not radiate. Pain currently is 3 out of 10 jw7 on a pain scale. Pain began 1 day ago. Is intermittent. Neuro: Level of Consciousness is awake, alert, obeys commands, Oriented to person, place, time, situation. Cardiovascular: Reports chest pain, Heart tones S1 S2 present Capillary refill < 3 seconds Clubbing of nail beds is absent JVD is absent Patient's skin is warm and dry. Rhythm is sinus tachycardia. Respiratory: Reports shortness of breath Airway is patent Trachea midline Respiratory effort is even, unlabored, Respiratory pattern is regular, symmetrical. GI: Abdomen is flat, non-distended, Bowel sounds present X 4 quads. Reports nausea, vomiting. : No deficits noted. No signs and/or symptoms were reported regarding the genitourinary system. EENT: No deficits noted. No signs and/or symptoms were reported regarding the EENT system. Derm: Skin is intact, is healthy with good turgor, Skin is dry, Skin is pale, Skin temperature is warm. Musculoskeletal: Circulation, motion, and sensation intact. Range of motion: intact in all extremities. 20:14 Reassessment: Patient appears in no apparent distress at this time. No changes from jw7 previously documented assessment. Patient and/or family updated on plan of care and expected duration. Pain level reassessed. Patient is alert, oriented x 3, equal unlabored respirations, skin warm/dry/pink. 20:57 Reassessment: Patient appears in no apparent distress at this time. No changes from vc1 previously documented assessment. Patient and/or family updated on plan of care and expected duration. Pain level reassessed. Patient is alert, oriented x 3, equal unlabored respirations, skin warm/dry/pink. Patient denies pain at this time. 21:51 Reassessment: Patient appears in no apparent distress at this time. No changes from vc1 previously documented assessment. Patient and/or family updated on plan of care and expected duration. Pain level reassessed. Patient is alert, oriented x 3, equal unlabored respirations, skin warm/dry/pink. 21:52 Pain: Complains of pain in everywhere Pain currently is 3 out of 10 on a pain scale. vc1 Vital Signs: 16:26 BP 112 / 78; Pulse 133; Resp 20 S; Pulse Ox 98% on R/A; kc6 16:44 Temp 98.7(O); Weight 58.97 kg (R); Height 5 ft. 6 in. (R); kc6 17:28 BP 100 / 65; Pulse 111; Resp 17 S; Pulse Ox 98% on R/A; kc6 18:17 BP 123 / 71; Pulse 136; Resp 19 S; Pulse Ox 100% on R/A; Pain 2/10; kc6 18:31 BP 111 / 76; Pulse 122; Resp 18 S; Pulse Ox 97% on R/A; Pain 2/10; kc6 20:14 BP 102 / 73; Pulse 123; Resp 18 S; Pulse Ox 99% on R/A; jw7 20:57 BP 113 / 73; Pulse 115; Resp 18; Pulse Ox 99% ; vc1 21:51 BP 103 / 65; Pulse 122; Resp 18; Pulse Ox 95% ; vc1 22:05 BP 111 / 70; Pulse 99; Resp 20; Pulse Ox 94% ; vc1 16:44 Body Mass Index 20.98 (58.97 kg, 167.64 cm) kc6 18:17 Pain Scale: Adult kc6 18:31 Pain Scale: Adult kc6 ED Course: 15:40 Patient arrived in ED. rg4 15:42 Julio Moser PA is PHCP. cp 15:42 Benito Menon MD is Attending Physician. cp 16:15 Arm band placed on Patient placed in an exam room, on a stretcher. ll1 16:18 Oxana Vasquez, RADHA is Primary Nurse. kc6 16:24 Triage completed. iw 16:26 Inserted saline lock: 18 gauge in right antecubital area, using aseptic technique. kc6 Blood collected. Patient maintains SpO2 saturation greater than 95% on room air. 16:27 Patient has correct armband on for positive identification. Placed in gown. Bed in low kc6 position. Call light in reach. Side rails up X2. Client placed on continuous cardiac and pulse oximetry monitoring. NIBP monitoring applied. threat monitoring analyst on. 17:00 XRAY Chest (1 view) In Process Unspecified. EDMS 18:18 UDS Sent. kc6 18:18 Urinalysis W/Microscopic Sent. kc6 18:58 CT Abd/Pelvis - IV Contrast Only In Process Unspecified. EDMS 19:00 Provided Education on: Use of call light. jw7 22:09 No provider procedures requiring assistance completed. IV discontinued, intact, jw7 bleeding controlled, No redness/swelling at site. Pressure dressing applied. Administered Medications: 16:37 Drug: NS 0.9% IV 1000 ml IV at 1 bolus Per protocol; 1000 mL bolus Route: IV; Rate: 1 kc6 bolus; Site: right antecubital; 18:18 Follow up: Response: No adverse reaction; IV Status: Completed infusion; IV Intake: kc6 1000ml 16:37 Drug: NS 0.9% IV 1000 ml IV at 1 bolus Per protocol; 1000 mL bolus Route: IV; Rate: 1 kc6 bolus; Site: right antecubital; 18:18 Follow up: Response: No adverse reaction; IV Status: Completed infusion; IV Intake: kc6 1000ml 16:44 Drug: Ondansetron IVP 4 mg IVP once; over 2 minutes Route: IVP; Site: right antecubital;kc6 18:18 Follow up: Response: No adverse reaction; Nausea is decreased kc6 16:44 Drug: Famotidine IVP 20 mg IVP once; dilute with 10 mL 0.9% NaCl; give over 2 minutes kc6 Route: IVP; Site: right antecubital; 18:18 Follow up: Response: No adverse reaction; Pain is decreased kc6 18:31 Drug: Labetalol IV 10 mg IV at calculated rate once Route: IV; Rate: calculated rate; kc6 Site: right antecubital; 20:48 Follow up: Response: No adverse reaction; Blood pressure is lowered; IV Status: jw7 Completed infusion; IV Intake: 10ml 18:31 Drug: NS 0.9% IV 1000 ml IV at 250 ml/hr Per protocol; 1000 mL bolus Route: IV; Rate: kc6 250 ml/hr; Site: right antecubital; 22:11 Follow up: Response: No adverse reaction; IV Status: Completed infusion; IV Intake: jw7 800ml 19:37 Drug: Potassium PO Effervescent Tablet 25 mEq PO once; dissolve in 4 ounces of water or jw7 juice Route: PO; 21:53 Follow up: Response: No adverse reaction vc1 19:55 Drug: Promethazine IVP 25 mg IVP once Route: IVP; Site: right antecubital; jw7 21:53 Follow up: Response: No adverse reaction; Marked relief of symptoms vc1 20:18 Drug: Potassium PO Effervescent Tablet 50 mEq PO once; dissolve in 4 ounces of water or jw7 juice Route: PO; 21:53 Follow up: Response: No adverse reaction vc1 Medication: 22:11 VIS not applicable for this client. jw7 Intake: 18:18 IV: 1000ml; Total: 1000ml. kc6 18:18 IV: 1000ml; Total: 2000ml. kc6 20:48 IV: 10ml; Total: 2010ml. jw7 22:11 IV: 800ml; Total: 2810ml. jw7 Outcome: 21:09 Discharge ordered by MD. cp 22:09 Discharged to home ambulatory, jw7 22:09 Condition: stable 22:09 Discharge instructions given to patient, Instructed on discharge instructions, follow up and referral plans. medication usage, Demonstrated understanding of instructions, follow-up care, medications, Prescriptions given X 3, 22:13 Patient left the ED. jw7 Signatures: Dispatcher [employer] EDMS Tati Sandhu RN RN Julio Marie PA PA cp Garcia, Rubi rg4 Julius Castellon RN RN ll1 Vesta Steiner RN RN vc1 Jackeline Buitrago RN RN jw7 Oxana Vasquez RN RN kc6 Corrections: (The following items were deleted from the chart) 18:33 18:31 BP 111 / 76; Pulse 122bpm; Resp 18bpm; Spontaneous; Pulse Ox 97% RA; kc6 kc6 21:52 21:51 Reassessment: Patient appears in no apparent distress at this time. No changes vc1 from previously documented assessment. Patient and/or family updated on plan of care and expected duration. Pain level reassessed. Patient is alert, oriented x 3, equal unlabored respirations, skin warm/dry/pink. Patient denies pain at this time. vc1
[2024-01-02 23:08] VITALS: TEMP 98.7
[2024-01-02 23:32] VITALS: BP 111/70; O2SAT 94
--- NOTE | 2024-01-03 17:23 | EKG ---
Test Date: 2024-01-02 Test Time: 16:10:27 Computer Lab Assistant: LENORE MEASUREMENT RESULTS: Intervals: Rate: 110 [place]: 132 QRSD: 86 QT: 296 QTc: 400 [place]: P: 49 [place]: 132 QRS: 88 T: 39 INTERPRETIVE STATEMENTS: Sinus tachycardia Otherwise normal ECG Compared to ECG 05/25/2023 23:06:39 No significant changes Electronically Signed On 01-03-24 17:20:21 CDT by Maynor Franklin
== END ==
LOC: ER 15:38
DX: R07.9 Chest pain, unspecified (principal); R11.2 Nausea with vomiting, unspecified; R00.0 Tachycardia, unspecified
CPT/HCPCS: 96365; 96361; 93005; 85025; 81001; 80048; 36415; 83735; 85610; 85379; 80076; 84484; 83690; 80307; 74177; 71045; 96375; 99285; 96366; Q9967; J2550; J2405; J7030 ×2

== ENCOUNTER 2024-01-05 15:15 | Inpatient (IN) | payer BC ==
--- OUTSIDE RECORDS SUMMARY | 2024-01-05 15:18 | XMS REPORT | Continuity of Care Document ---
Author Name Unknown Address [address] [facility] [address] [place] [address] [facility] thconnect Address [address] [facility] [address] [place] [address] Care Team Providers Care Claims Manager Name Role Phone PCP, PATIENT DOES NOT HAVE A Primary Care Physic rian Unavailable SABINA MCKENNA Attending Clinician Unavailable Rich Patel MD Attending Clinician [phone] YANETH PERALTA Attending Clinician UnavailYaneth Molina DO Attending Clinician [phone] YANETH PERALTA Admitting Clinician Khai pinto Payers Payer Name Policy Type Policy Number Effective Date Expirati on Date Source [facility] [id number] 2021 00:00:00 Allergies, Adverse Reactions, Alerts Allergy Name Allergy Type Status Severity Reaction(s) Onset Date Inactive Date Treating Clinician Comments Source NO KNOWN ALLERGIE S Drug Class Active [facility] Social History Social Habit Start Date Stop Date Quantity Comments Source Gender identity [facility] of Social function 2023-05-23 00:00:00 2023-05-23 00:00:00 [facility] Alcohol intake 2023-05-23 00:00:00 2023-05-23 00:00:00 Current non-drinker of alcohol (finding) [facility] Tobacco use and exposure 2013-12-03 00:00:00 2013-12-03 00:00:00 Smokeless tobacco non-user [facility] Tobacco Comment 2013-12-03 00:00:00 2013-12-03 00:00:00 Denies smoking exposure [facility] Sex Assigned At 2000 00:00:00 2000 00:00:00 [facility] Smoking Status Start Date Stop Date Source Never smoked tobacco [facility] Medications Ordered Medication Name Filled Medication Name Start Date Stop Date Current Medication? Ordering Clinician Indication Dosage Frequency Signature (SIG) Comments Components Source azithromyci n (ZITHROMAX) tablet 500 mg 01-03 13:45: 00 01-03 13:37 :00 No 500mg 500 mg, Oral, ONCE, 1 dose, On 01/04/24 at 0845, LUCIA
Re ason for Anti-Infec tive: Empiric Therapy for Suspected Infection< br>Empiric Therapy Site: Respirator y
Durat ion of therapy: Once (ED) [facility] amoxicillin (TRIMOX) capsule 1,000 mg 01-03 13:45: 00 01-03 13:37 :00 No 1000mg 1,000 mg, Oral, ONCE, 1 dose, On 01/04/24 at 0845, LUCIA
Re ason for Anti-Infec tive: Empiric Therapy for Suspected Infection< br>Empiric Therapy Site: Respirator y
Durat ion of therapy: Once (ED) [facility] NaCl 0.9% (NS) bolus infusion 1,000 mL 01-03 12:45: 00 01-03 13:36 :00 No 1000mL at 999 mL/hr, 1,000 mL, IV Piggyback, ONCE, 1 dose, On 01/04/24 at 0745, STAT [facility] ketorolac (TORADOL) injection 15 mg 01-03 12:45: 00 01-03 12:13 :00 No 15mg 15 mg, Slow IV Push, ONCE, 1 dose, On 01/04/24 at 0745, LUCIA [facility] iopamidol (ISOVUE 370-500 mL) injection 80 mL 01-03 12:15: 00 01-03 12:30 :00 No [id number] 80mL 80 mL, Intravenou s, ONCE, 1 dose, On 01/04/24 at 0730, Routine [facility] NaCl 0.9% (NS) bolus infusion 1,000 mL 01-03 12:00: 00 01-03 13:36 :00 No 1000mL at 999 mL/hr, 1,000 mL, IV Piggyback, ONCE, 1 dose, On 01/04/24 at 0700, STAT [facility] cefTRIAXone (ROCEPHIN) 1,000 mg in NaCl 0.9% (NS) 100 mL MINI-BAG 01-03 11:45: 00 01-03 12:07 :00 No 1000mg 1,000 mg, IV Piggyback, ONCE, 1 dose, On 01/04/24 at 0645, Administer over 30 Minutes, 100 mL
Reas on for Anti-Infec tive: Empiric Therapy for Suspected Infection< br>Empiric Therapy Site: Respirator y
Durat ion of therapy: Once (ED) [facility] ibuprofen (IBU) tablet 600 mg 01-03 11:15: 00 01-03 11:30 :00 No 600mg 600 mg, Oral, ONCE, 1 dose, On 01/04/24 at 0615, [facility] ondansetron (ZOFRAN (PF)) injection 4 mg 01-03 11:15: 00 01-03 11:28 :00 No 4mg 4 mg, Slow IV Push, ONCE, 1 dose, On 01/04/24 at 0615, [facility] amoxicillin 500 mg capsule 01-03 00:00: 00 01-09 04:59 :00 Yes [id number] 1000mg Take 2 capsules by mouth in the morning and 2 capsules at noon and 2 capsules in the evening. Do all this for [address] [facility] azithromyci n 250 mg tablet 01-03 00:00: 00 01-08 04:59 :00 Yes [id number] 250mg Take 1 tablet by mouth in the morning for [address] [facility] iopamidol (ISOVUE 370-500 mL) injection 100 mL 05-24 06:30: 00 05-24 06:30 :00 No [id number] 100mL 100 mL, Intravenou s, ONCE, 1 dose, On Sat05/24/23 at 0130, Routine [facility] NaCl 0.9% (NS) bolus infusion 1,000 mL 05-24 05:30: 00 05-24 06:50 :00 No 1000mL at 999 mL/hr, 1,000 mL, IV Infusion, ONCE, 1 dose, On Sat05/24/23 at 0030[facility]AN (PF[facility] 4 mg 05-24 04:45: 00 05-24 04:53 :00 No 4mg 4 mg, Slow IV Push, ONCE, 1 dose, On Leidy 05/23/23 at 2345, [facility] mg disintegrat ing tablet 05-24 00:00: 00 Yes [id number] 4mg Take 1 tablet by mouth every 8 (eight) hours as needed for Nausea and Vomiting (N/V). [facility] ondansetron 4 mg disintegrat ing tablet 05-24 00:00: 00 Yes [id number] 4mg Take 1 tablet by mouth every 8 (eight) hours as needed for Nausea and Vomiting (N/V). [facility] Immunizations Ordered Immunization Name Filled Immunization Name Date Status Comments Source Influenza Virus Vaccine (3+ yrs) 2013-12-03 00:00:00 Completed [facility] HPV 2010-08-21 00:00:00 Completed [facility] Influenza Virus Vaccine 2010-08-21 00:00:00 Completed [facility] Meningococcal Vaccine 2010-08-21 00:00:00 Completed [facility] TDAP 2010-08-21 00:00:00 Completed [facility] Influenza Virus Vaccine 2009-09-29 00:00:00 Completed [facility] H1n1 Vaccine 2009-09-29 00:00:00 Completed [facility] Influenza Virus Vaccine 2008-08-23 00:00:00 Completed [facility] Varicella (varivax)(chicken pox) 2008-08-23 00:00:00 Completed [facility] HEPATITIS A 2007-02-28 00:00:00 Completed [facility] HEPATITIS A 2006-07-30 00:00:00 Completed [facility] DTAP 2003-06-10 00:00:00 Completed [facility] MMR 2003-06-10 00:00:00 Completed [facility] Polio (IPV/OPV) 2003-06-10 00:00:00 Completed [facility] Pneumococcal 7 Conjugate, PCV7 (Prevnar7) 2001-06-20 00:00:00 Completed [facility] Pneumococcal 7 Conjugate, PCV7 (Prevnar7) 2000-12-23 00:00:00 Completed [facility] DTAP 2000-09-24 00:00:00 Completed [facility] Hep B, Adol or Pedi Dosage 2000-09-24 00:00:00 Completed [facility] HIB 4 Dose Schedule 2000-06-25 00:00:00 Completed [facility] MMR 2000-06-25 00:00:00 Completed [facility] Polio (IPV/OPV) 2000-06-25 00:00:00 Completed [facility] Varicella (varivax)(chicken pox) 2000-06-25 00:00:00 Completed [facility] Hep B, Adol or Pedi Dosage 2000-03-26 00:00:00 Completed [facility] DTAP 1999 00:00:00 Completed [facility] HIB 4 Dose Schedule 1999 00:00:00 Completed [facility] Hep B, Adol or Pedi Dosage 1999 00:00:00 Completed [facility] DTAP 1999 00:00:00 Completed [facility] HIB 4 Dose Schedule 1999 00:00:00 Completed [facility] Polio (IPV/OPV) 1999 00:00:00 Completed [facility] DTAP 1999 00:00:00 Completed [facility] HIB 4 Dose Schedule 1999 00:00:00 Completed [facility] Polio (IPV/OPV) 1999 00:00:00 Completed [facility] DTAP Unknown Completed [facility] DTAP Unknown Completed [facility] DTAP Unknown Completed [facility] DTAP Unknown Completed [facility] DTAP Unknown Completed [facility] HIB 4 Dose Schedule Unknown Completed [facility] HIB 4 Dose Schedule Unknown Completed [facility] HIB 4 Dose Schedule Unknown Completed [facility] HIB 4 Dose Schedule Unknown Completed [facility] HEPATITIS A Unknown Completed [facility] HEPATITIS A Unknown Completed [facility] Hep B, Adol or Pedi Dosage Unknown Completed [facility] Hep B, Adol or Pedi Dosage Unknown Completed [facility] Hep B, Adol or Pedi Dosage Unknown Completed [facility] HPV Unknown Completed [facility] Influenza Virus Vaccine Unknown Completed [facility] Influenza Virus Vaccine Unknown Completed [facility] Influenza Virus Vaccine Unknown Completed [facility] H1n1 Vaccine Unknown Completed [facility] Meningococcal Vaccine Unknown Completed [facility] MMR Unknown Completed [facility] MMR Unknown Completed [facility] Pneumococcal 7 Conjugate, PCV7 (Prevnar7) Unknown Completed [facility] Pneumococcal 7 Conjugate, PCV7 (Prevnar7) Unknown Completed [facility] Polio (IPV/OPV) Unknown Completed [facility] Polio (IPV/OPV) Unknown Completed [facility] Polio (IPV/OPV) Unknown Completed [facility] Polio (IPV/OPV) Unknown Completed [facility] TDAP Unknown Completed [facility] Varicella (varivax)(chicken pox) Unknown Completed [facility] Varicella (varivax)(chicken pox) Unknown Completed [facility] Influenza Virus Vaccine (3+ yrs) Unknown Completed [facility] Vital Signs Vital Name Observation Time Observation Value Comments S ource Systolic blood pressure 2024-01-04 13:30:00 117 mm[Hg] Artesian o [facility] Diastolic blood pressure 2024-01-04 13:30:00 80 mm[Hg] [facility] Heart rate 2024-01-04 13:30:00 116 /min Unive [facility] Body temperature 2024-01-04 13:30:00 37.44 Jennifer [facility] Respiratory rate 2024-01-04 13:30:00 20 /min [facility] Oxygen saturation in Arterial blood by Pulse oximetry 2024-01-04 13:30:00 95 /min [facility] Body height 2024-01-04 11:07:00 167.6 cm [facility] Body weight 2024-01-04 11:07:00 58.968 kg [facility] BMI 2024-01-04 11:07:00 20.98 kg/m2 [facility] Systolic blood pressure 2023-05-24 06:00:00 112 mm[Hg] [facility] Diastolic blood pressure 2023-05-24 06:00:00 76 mm[Hg] [facility] Heart rate 2023-05-24 06:00:00 99 /min [facility] Respiratory rate 2023-05-24 06:00:00 29 /min [facility] Oxygen saturation in Arterial blood by Pulse oximetry 2023-05-24 06:00:00 98 /min [facility] Body temperature 2023-05-24 04:34:00 37 Jennifer [facility] Body height 2023-05-24 04:34:00 167.6 cm [facility] Body weight 2023-05-24 04:34:00 52.708 kg [facility] BMI 2023-05-24 04:34:00 18.76 kg/m2 [facility] Procedures Procedure Date / Time Performed Performing Clinician Source CT ABDOMEN PELVIS W CONTRAST 2024-01-04 12:27:56 Rich Patel [facility] XR CHEST 2 VW 2024-01-04 12:27:39 Rich Patel [facility] LACTIC ACID WHOLE BLOOD 2024-01-04 12:16:00 Joslyn Patel [facility] RAPID INFLUENZA A/B 2024-01-04 11:39:00 Rich Patel [facility] RAPID STREP SCREEN FOR GROUP A 2024-01-04 11:38:00 Rich Patel [facility] LIPASE 2024-01-04 11:22:00 Rich Patel [facility] COMP. METABOLIC PANEL ([id number]) 2024-01-04 11:22:00 Rich Patel [facility] URINE DRUG (IMMUNOASSAY) - COMPREHENSIVE DRUG SCREEN 2024-01-04 11:22:00 Rich Patel [facility] CBC WITH DIFF 2024-01-04 11:22:00 Rich Patel [facility] URINALYSIS 2024-01-04 11:22:00 Rich Patel [facility] COVID-19 (ID NOW RAPID TESTING) 2024-01-04 11:22:00 Rich Patel [facility] NOTICE OF PRIVACY PRACTICES 2024-01-04 10:56:55 Doctor Unassigned, [place] [facility] CONSENT/REFUSAL FOR DIAGNOSIS AND TREATMENT 2024-01-04 10:56:13 Doctor Unassigned, [place] [facility] CT ABDOMEN PELVIS W CONTRAST 2023-05-24 05:44:31 Yaneth Peralta [facility] LIPASE 2023-05-24 04:48:00 Yaneth Peralta [facility] MAGNESIUM 2023-05-24 04:48:00 Yaneth Peralta [facility] COMP. METABOLIC PANEL ([id number]) 2023-05-24 04:48:00 Yaneth Peralta [facility] CBC WITH DIFF 2023-05-24 04:48:00 [facility] HIV 1/2 AG-AB WITH REFLEX 2023-05-24 04:48:00 Yaneth Peralta [facility] NOTICE OF PRIVACY PRACTICES 2023-05-24 04:28:10 Doctor Unassigned, [place] [facility] CONSENT/REFUSAL FOR DIAGNOSIS AND TREATMENT 2023-05-24 04:27:39 Doctor Unassigned, [place] [facility] Encounters Start Date/Time End Date/Time Encounter Type Admission Type Attending Clinicians Care Facility Care Department Encounter ID Source 2024-01-04 06:11:00 2024-01-04 08:51:00 Emergency X SABINA MCKENNA [facility] ERT [id number] [facility] 2024-01-04 06:11:00 2024-01-04 08:51:00 Emergency Rich PatelSabina [facility] [id number] [facility] 2023-05-23 23:38:00 2023-05-24 01:50:00 Emergency X YANETH PERALTA [facility] ERT [id number] [facility] 2023-05-23 23:38:00 2023-05-24 01:50:00 Emergency Yaneth Peralta [facility] [id number] [facility] Results Test Description Test Time Test Comments Results Result Comments Source CT ABDOMEN PELVIS W CONTRAST 13:01:21 EXAMINATION: ?CT ABDOMEN AND PELVIS WITH CONTRAST 01/04/2024 7:57 AM Ordering physician: RICH PATEL CLINICAL HISTORY: ?Abdominal pain with nausea and vomiting COMPARISON EXAM(S): ?Chest x-ray obtained earlier today. CAT scan abdomenand pelvis dated 05/24/2023 Technique: Contiguous axial sections through the abdomen and pelvis were obtained fromthe lung bases to the ischial tuberosities following the uneventfuladministration of intravenous contrast. ?Coronal and sagittal reformattedsequences were also obtained.. ?Oral contrast was not administered.?CT scandone according to ALARA (As Low as Reasonably Achievable)? Findings: Better defined is diffuse right lower lobe and right middle lobeinfiltrate, superimposed on previously seen left lower lobe and lingularinfiltrates. The visualized lung chow are otherwise clear. No pleuraleffusions. CT abdomen:The liver, gallbladder, biliary tree, pancreas, spleen, kidneys,adrenal glands, ureters, appendix, and gastrointestinal tract, areradiographically unremarkable in appearance. ? No focal fluid collectionsor pathologic adenopathy. CT pelvis: ?The prostate, seminal vesicles, bladder, and pelvic structures,are radiographically unremarkable in appearance. ? No focal fluidcollections or pathologic adenopathy. The visualized bony skeleton demonstrates no acute radiographicabnormalities. [facility] XR CHEST 2 VW 12:48:19 CHEST X-RAY PA & LATERAL 01/04/2024 7:47 AM Ordering physician: RICH PATEL CLINICAL INFORMATION: ?Cough and fever TECHNIQUE: ?PA AND LATERAL VIEWS OF THE CHEST COMPARISON: None FINDINGS: Left lower lobe and lingular infiltrate. The lungs are otherwise clear. ?Nopleural effusions. ?No pneumothorax. ?The cardiomediastinal silhouette iswithin normal limits. ?No acute bony abnormalities of the visualizedskeleton. [facility] [id number] 12:24:03* Test Item Value Reference Range Interpretation Comme nts LACTIC ACID (test code = 2965423133) 0.92 mmol/L 0.50-2.20 Lab Interpretation (test cod e = 29571-8) Normal [facility] ([id number])2024-01-04 12:09:36* Test Item Value Reference Range Interpretation Comme nts NA (test code = 5698049997) 138 mmol/L 135-145 K (test code = 5167869093) 3.4 mmol/L 3.5-5.0 L CL (test code = 3058617036) 101 mmol/L 98-108 CO2 TOTAL (test code = 1140815010) 22 mmol/L 23-31 L AGAP (test code = 2052452545) 15 2-16 BUN (test code = 4490389962) 12 mg/dL 7-23 GLUCOSE (test code = 7968877333) 93 mg/dL 70-110 CREATININE (test code = 2160-0) 0.70 mg/dL 0.60-1.25 TOTAL BILI (test code = 0052666378) 1.3 mg/dL 0.1-1.1 H CALCIUM (test code = 8915120808) 9.0 mg/dL 8.6-10.6 T PROTEIN (test code = 3885086682) 8.5 g/dL 6.3-8.2 H ALBUMIN (test code = 6872732740) 4.3 g/dL 3.5-5.0 ALK PHOS (test code = 9371710103) 87 U/L 34-122 ALTv (test code = 1742-6) 11 U/L 5-50 AST(SGOT) (test code = 2720251034) 35 U/L 13-40 eGFR (test code = 68013-5) 132.0 mL/min/1.73m2 CKD-EPI eGFR (2020). Assuming creatinine has been stable day-to-day for at least three months, the eGFR indicates Category G1 (>= 90 mL/min/1.73 m2) Lab Interpretation (test code = 13188-6) Abnormal [facility] 12:09:16* Test Item Value Reference Range Interpretation Comme nts LIPASE (test code = 1128970504) 28 U/L 0-220 Lab Interpretation (test cod e = 91338-2) Normal [facility] WITH GJJK1300-30-05 05:54:08* Test Item Value Reference Range Interpretation Comme nts WBC (test code = 6690-2) 17.84 See_Comment H [Automated message] The system which generated this result transmitted reference range: 4.20 - 10.70 10*3/?L. The reference range was not used to interpret this result as normal/abnormal. RBC (test code = 789-8) 4.72 See_Comment [Automated message] The system which generated this result transmitted reference range: 4.26 - 5.52 10*6/?L. The reference range was not used to interpret this result as normal/abnormal. HGB (test code = 718-7) 15.6 g/dL 12.2-16.4 HCT (test code = 4544-3) 45.8 % 38.4-49.3 MCV (test code = 787-2) 97.0 fL 81.7-95.6 H MCH (test code = 785-6) 33.1 pg 26.1-32.7 H MCHC (test code = 786-4) 34.1 g/dL 31.2-35.0 RDW-SD (test code = 31058-7) 42.1 fL 38.5-51.6 RDW-CV (test code = 788-0) 11.6 % 12.1-15.4 L PLT (test code = 777-3) 260 See_Comment [Automated message] The system which generated this result transmitted reference range: 150 - 328 10*3/?L. The reference range was not used to interpret this result as normal/abnormal. MPV (test code = 84308-2) 9.8 fL 9.8-13.0 NRBC/100 WBC (test code = 1857871709) 0.0 See_Comment [Automated message] The system which generated this result transmitted reference range: 0.0 - 10.0 /100 WBCs. The reference range was not used to interpret this result as normal/abnormal. NRBC x10^3 (test code = 7287473355) See_Comment [Automated message] The system which generated this result transmitted reference range: 10*3/?L. The reference range was not used to interpret this result as normal/abnormal. GRAN MAT (NEUT) % (test code = 770-8) 89.5 % IMM GRAN % (test code = 9855640854) 0.50 % LYMPH % (test code = 736-9) 4.4 % MONO % (test code = 5905-5) 5.3 % EOS % (test code = 713-8) 0.1 % BASO % (test code = 706-2) 0.2 % GRAN MAT x10^3(ANC) (test code = 1620675551) 15.97 10*3/uL 1.99-6.95 H IMM GRAN x10^3 (test code = 9337271137) 0.09 10*3/uL 0.00-0.06 H LYMPH x10^3 (test code = 731-0) 0.79 10*3/uL 1.09-3.23 L MONO x10^3 (test code = 742-7) 0.94 10*3/uL 0.36-1.02 EOS x10^3 (test code = 711-2) 0.06-0.53 L BASO x10^3 (test code = 704-7) 0.04 10*3/uL 0.01-0.09 BANDS (test code = 3748303812) Increased A Lab Interpretation (test code = 86710-5) [facility] AG-AB WITH [id number] 05:53:38* Test Item Value Reference Range Interpretation Comme nts HIV Semi-quantitative (test code = 38637-9) 0.13 Negative ESTRELLA (test code = ESTRELLA) Non-reactive for HIV-1 antigen and HIV-1/HIV-2 antibodies. ?No laboratory evidence of HIV infection. ?Repeat in 2-4 weeks if acute HIV infection is suspected. [facility] 05:13:54* Test Item Value Reference Range Interpretation Comme nts MAGNESIUM (test code = 7769255644) 1.9 mg/dL 1.7-2.4 Lab Interpretation (test cod e = 70622-8) Normal [facility]OL[facility] PAN[facility] (01473)2023-05-24 05:13:33* Test Item Value Reference Range Interpretation Comme nts NA (test code = 6664248793) 139 mmol/L 135-145 K (test code = 7432671095) 3.3 mmol/L 3.5-5.0 L CL (test code = 7809150215) 98 mmol/L 98-108 CO2 TOTAL (test code = 6634256386) 28 mmol/L 23-31 AGAP (test code = 5168639817) 13 2-16 BUN (test code = 5968300388) 14 mg/dL 7-23 GLUCOSE (test code = 4714570071) 122 mg/dL 70-110 H CREATININE (test code = 5312859067) 0.76 mg/dL 0.60-1.25 TOTAL BILI (test code = 8319330870) 1.6 mg/dL 0.1-1.1 H CALCIUM (test code = 2941431108) 9.5 mg/dL 8.6-10.6 T PROTEIN (test code = 4165780449) 9.2 g/dL 6.3-8.2 H ALBUMIN (test code = 0376435007) 4.8 g/dL 3.5-5.0 ALK PHOS (test code = 4266842488) 88 U/L 34-122 ALTv (test code = 1742-6) 14 U/L 5-50 AST(SGOT) (test code = 4713997112) 25 U/L 13-40 eGFR (test code = 5883654791) 127.1 mL/min/1.73m2 ESTRELLA (test code = ESTRELLA) [...] imaging tests). Lab Interpretation (test code = 31313-4) [facility]normal [facility] 05:13:33* Test Item Value Reference Range Interpretation Comme nts LIPASE (test code = 7959513129) 25 U/L 0-220 Lab Interpretation (test cod e = 95617-4) Normal [facility] Notes Date/Time Note Provider Source 2024-01-04 07:19:12 p/ZZcPeBIecKywsdnhyR [id number] l5BKkZwdHk9wwodO0sifMhD2W+[id number]:19:12 Patient transported to Radiology. [address] [place] [address] SldlFJ5918-53-46O69:19:26[facility] [id number] .[id number] for patient qdeq50052-2DfwrNYUZVEBJQKLNevzmtlj d C-CDA narrative [id number] S Cryer RN[id number] 60ECPLGJNRDZOGXOVRWQCMPJ4594-12-62 T07:19:261.2.840.381427.1.72.3.15| [id number] Miguel A Baer RN [facility] 2024-01-04 06:47:01 doiWsJPbt+krerUDfQGk dY1+BD/qUcUR5i 2LqaVB4WUDmFfyweNOoZFHjn3m087+2023T06:47:01 Report to Cryer [address]-7[address] [place] [address] FaljBX3562-79-77X62:47:11[facility] department NoteTXT1.2.840.589736.1.13.104.2.7 .2.604510|[id number] for patient nexo57560-8VuhaTVGDBMDPIGVJgcixdfo d C-CDA narrative [id number] A. Campbell RN[id number] 96BDCKBYSJJJIDXHDTGTBFSL2225-30-72 T06:47:111.2.840.429281.1.72.3.15| 1.2.840.882744.1.13.104.2.7.2.7278 [id number] Quita Vasquez RN [facility] 2024-01-04 05:59:46 KWLzTpobT8iwLbxLu326 pUcD7BP0kzTfA7 eLhYiyzbecMReWLEjWbYhlLM9R7PGz4017 -03-16T05:59:46 Pt arrives ambulatory to ED reporting that he has been vomiting since @ 10 am. He says that he went to [facility] yesterday and was scanned, xrayed and had blood work done and they could not find anything. He says his chest hurts when he breaths and has had waves of being hot and cold.Temp in triage 102.7HR 145 79384-5Nldmqmcmp department Triage klklXH4142-59-35K81:07:46[facility] department Triage noteTXT1.2.840.672816.1.13.104.2.7 .2.586443|[id number] for patient uftj48213-7Zzhyayvxt department NoteLNNARRATIVEFormatted C-CDA narrative [id number] L Williams RN[address] Nb[id number] 90VJCVLADVDSTCLXRTVCSCOX3069-67-58 T06:07:461.2.840.997155.1.72.3.15| 1.2.840.946819.1.13.104.2.7.2.7278 [id number] Ignacia Peralta RN [facility] 2024-01-04 05:56:00 /snaoFpvAw2qJ1xij+JA CUUCja6hNcbVub BWKVPnPGga+89Z6HKLvKBrasuC5URC7345 -03-16T05:56:00 [facility] Emergency Department NotePatient Name: Joe Chan of : 2000 23 year old maleTreatment Room: DC1/XC3Clqbhrq Record Number: [id number] Care Physician: PATIENT DOES NOT HAVE A PCPPatient Escorted by: Self [9]Mode of Arrival: Personal means [1]EMS Treatment Prior to ED Arrival:JANITOR CUSTODIAN treatment: NoneTravel and Exposure Screening:SymptomsDoes patient have any of these symptoms?: (not recorded)Exposure ScreeningHas patient had contact with someone with a communicable disease in the last month?: (not recorded)Diseases exposed to:: (not recorded)Is Patient ?: (not recorded)Exposure Date: (not recorded)Chief Complaint:Chief ComplaintPatient presents with Viral SyndromeHistory of Present Illness:23 y.o. male, no known medical history, now with fever/chills, N/V/D and abdominal pain x 2-3 days. Patient reports being seen at [facility] yesterday with negative workup and told had "Viral infection." Patient unable to tolerate any oral intake x 2 days.Past Medical History/Immunizations:Past Medical History:Diagnosis Date Asthma Heart murmurResolvedTetanus received in last 5 years: UnknownAllergies:No Known AllergiesPast Social History:Tobacco UseNever smoked or used smokeless tobacco.Comments: Denies smoking exposureAlcohol UseNo.Drug UseNo.Sexual ActivityNot sexually active.Past Surgical History:Past Surgical History:Procedure Laterality Date CIRCUMCISIONReview of Systems:Review of SystemsConstitutional: Positive for appetite change, chills, fatigue and fever.HENT: Positive for congestion, ear pain and sinus pressure.Eyes: Negative.Respiratory: Positive for cough and shortness of breath.Cardiovascular: Negative.Gastrointestinal: Positive for abdominal pain, diarrhea, nausea and vomiting. Negative for abdominal distention, anal bleeding, blood in stool, constipation and rectal pain.Genitourinary: Positive for decreased urine volume.Musculoskeletal: Positive for myalgias.Skin: Negative.Neurological: Positive for light-headedness.Psychiatric/Behav ioral: Negative.Endocrine: Endocrine negativePhysical Exam:ED Triage Vitals [01/04/24 0607]Weight 59 kg (130 lb)Actual or estimated Estimated by patient/family reportHeight 1.676 m (5' 6")BP 123/81Pulse 145Resp 22Temp 39.3 ?C (102.7 ?F)Temp source OralSpO2 96 %Measured on Room airPhysical ExamVitals and nursing note reviewed.Constitutional:General: He is not in acute distress.Appearance: He is ill-appearing. He is not toxic-appearing or diaphoretic.HENT:Head: Normocephalic.Right Ear: Tympanic membrane and ear canal normal.Left Ear: Tympanic membrane and ear canal normal.Nose: Congestion and rhinorrhea present.Mouth/Throat:Mouth: Mucous membranes are dry.Pharynx: No oropharyngeal exudate or posterior oropharyngeal erythema.Eyes:Extraocular Movements: Extraocular movements intact.Pupils: Pupils are equal, round, and reactive to light.Cardiovascular:Rate and Rhythm: Tachycardia present.Pulses: Normal pulses.Heart sounds: Normal heart sounds.Pulmonary:Effort: No respiratory distress.Breath sounds: No stridor. No wheezing, rhonchi or rales.Chest:Chest wall: No tenderness.Abdominal:General: There is no distension.Palpations: Abdomen is soft. There is no mass.Tenderness: There is abdominal tenderness. There is no right CVA tenderness, left CVA tenderness, guarding or rebound.Hernia: No hernia is present.Musculoskeletal:General: Normal range of motion.Skin:General: Skin is dry.Capillary Refill: Capillary refill takes less than 2 seconds.Neurological:General: No focal deficit present.Mental Status: He is alert and oriented to person, place, and time.Psychiatric:Mood and Affect: Mood normal.Behavior: Behavior normal.Radiology:No orders to displayLab Results:Lab ResultsCBC WITH DIFF - AbnormalResult Value Ref RangeWBC 20.43 (*) 4.20 - 10.70 10*3/?LRBC 4.30 4.26 - 5.52 10*6/?LHGB 14.1 12.2 - 16.4 g/dLHCT 41.5 38.4 - 49.3 %MCV 96.5 (*) 81.7 - 95.6 fLMCH 32.8 (*) 26.1 - 32.7 [facility] CityHC 34.0 31.2 - 35.0 g/dLRDW-SD 44.7 38.5 - 51.6 fLRDW-CV 12.5 12.1 - 15.4 %PLT 258 150 - 328 10*3/?LMPV 10.7 9.8 - 13.0 fLNRBC/100 WBC 0.0 0.0 - 10.0 /100 WBCsNRBC x10^3 <0.01 10*3/?LGRAN MAT (NEUT) %IMM GRAN %LYMPH %MONO %EOS %BASO %GRAN MAT x10^3(ANC)IMM GRAN x10^3LYMPH x10^3MONO x10^3EOS x10^3BASO x10^3COMP. METABOLIC PANEL (28518)URINALYSISLIPASECOVID-19 (ID NOW RAPID TESTING)URINE DRUG (IMMUNOASSAY) - COMPREHENSIVE DRUG SCREENRAPID STREP SCREEN FOR GROUP ARAPID INFLUENZA A/BLACTIC ACID WHOLE BLOODEKG:If EKG completed, see Procedure Note.Orders and Treatments:Orders Placed This EncounterProcedures XR CHEST [address] ABDOMEN PELVIS W CONTRAST Cbc with Diff Comp. Metabolic Panel (86481) Urinalysis Lipase COVID-19 (ID NOW TESTING) Urine Drug (Immunoassay) - Comprehensive Drug Screen Rapid Strep Screen For Group A RAPID INFLUENZA A/B Lactic Acid Whole Blood Lactic Acid Whole BloodOrders Placed This EncounterMedications NaCl 0.9% (NS) bolus infusion 1,000 mL ondansetron (ZOFRAN (PF)) injection 4 mg ibuprofen (IBU) tablet 600 mg cefTRIAXone (ROCEPHIN) 1,000 mg in NaCl 0.9% (NS) 100 mL MINI-BAG ketorolac (TORADOL) injection 15 mg NaCl 0.9% (NS) bolus infusion 1,000 mLFirst Provider Eval:ED EventsDate/Time Event User Wnyjroic18/16/24 0615 Medical Screening Begins RICH PATEL MD --01/04/24614 First Provider Evaluation RICH PATEL MD --ED COURSEED Course as of 01/04/24 0826Sat Jan [id number] CT ABDOMEN PELVIS W CONTRASTImpression:1. Diffuse airspace infiltrates seen throughout the lower lung fieldsbilaterally, as described above. Otherwise, Radiographically unremarkableCAT scan of the abdomen and pelvis.[YH]0750 XR CHEST 2 VWIMPRESSION[1. Left lower lobe and lingular infiltrates. Otherwise, No radiographicevidence of acute cardiopulmonary disease, as described above[YH]ED Course User Index[YH] Sabina Mckenna, MDDiagnosis/Impression as of 01/04/24 0826Vomiting, unspecified vomiting type, unspecified whether nausea presentPneumonia due to infectious organism, unspecified laterality, unspecified part of lungProcedures:ProceduresMDM:Medic al Decision MakingAmount and/or Complexity of Data ReviewedLabs: ordered.Radiology: ordered.RiskPrescription drug management.A) Dehydration, Febrile Illness, Nausea/Vomiting/DiarrheaDispositio n/Condition: Pending labs, Urine, Swabs, CXR and CTAP.ED DispositionNoneDischarge Medications:Patient's MedicationsSTART taking these medicationsNo medications on fileCONTINUE taking these medications which have NOT CHANGEDONDANSETRON 4 MG DISINTEGRATING TABLET Take 1 tablet by mouth every 8 (eight) hours as needed for Nausea and Vomiting (N/V).START taking Modified Medications as PrescribedNo medications on fileSTOP taking these medicationsNo medications on fileFollow-up:Electronically signed by:Rich Patel MD01/04/24 0652Rich Patel MD01/04/24 0659 65683-0Iwuugszka Emergency department KepnXC7231-62-80D52:59:32Physician Emergency department NoteTXT1.2.840.988236.1.13.104.2.7 .2.323535|[id number] for patient icai86988-4Kjshqmiep department NoteLNNARRATIVEFormatted C-CDA narrative textEMCARE EMERGENCY PHYSICIAN STAFFEMCARE EMERGENCY PHYSICIAN STAFFUT[address] Xq[id number] 63RNUHRUYNXZHRUGBMESCVJP3750-07-30 T06:59:321.2.840.334211.1.72.3.15| 1.2.840.680702.1.13.104.2.7.2.7278 [id number] [facility] EMERGENCY PHYSICIAN STAFF [facility] 2024-01-04 05:56:00 ekgCuLdpITKqXFhj12rJ de8g0BCJWpwXFZ ODPCEF91wwpsNzgmzxryZd0AviDIJC2816 -03-16T05:56:00 23 yo M signed out from previous physician for concern of fever, chills, vomiting, diarrhea and abd pain. Pt was found to have previous negative workup, found to have elevated WBC and with pna on imaging. Pt feeling much better at this time after getting fluids and meds with HR better in the 100s. Pt told about pna will be given abx to take at home and first dose here, was offered admission but pt is feeling better at this time. Pt told to return for any worsening symptoms of concern.Recent Results (from the past 24 hour(s))Cbc with DiffCollection Time: 01/04/24 6:22 AMResult Value Ref RangeWBC 20.43 (H) 4.20 - 10.70 10*3/?LRBC 4.30 4.26 - 5.52 10*6/?LHGB 14.1 12.2 - 16.4 g/dLHCT 41.5 38.4 - 49.3 %MCV 96.5 (H) 81.7 - 95.6 fLMCH 32.8 (H) 26.1 - 32.7 pgMCHC 34.0 31.2 - 35.0 g/dLRDW-SD 44.7 38.5 - 51.6 fLRDW-CV 12.5 12.1 - 15.4 %PLT 258 150 - 328 10*3/?LMPV 10.7 9.8 - 13.0 fLNRBC/100 WBC 0.0 0.0 - 10.0 /100 WBCsNRBC x10^3 <0.01 10*3/?LGRAN MAT (NEUT) % 93.7 %IMM GRAN % 0.40 %LYMPH % 2.2 %MONO % 3.3 %EOS % 0.2 %BASO % 0.2 %GRAN MAT x10^3(ANC) 19.14 (H) 1.99 - 6.95 10*3/uLIMM GRAN x10^3 0.08 (H) 0.00 - 0.06 10*3/uLLYMPH x10^3 0.44 (L) 1.09 - 3.23 10*3/uLMONO x10^3 0.67 0.36 - 1.02 10*3/uLEOS x10^3 0.05 (L) 0.06 - 0.53 10*3/uLBASO x10^3 0.05 0.01 - 0.09 10*3/uLSPHEROCYTES 1+ (A)BANDS Increased (A)REACT LYMPHS RareTOXIC CHANGES Present (A)Comp. Metabolic Panel (85514)Collection Time: 01/04/24 6:22 AMResult Value Ref RangeNA 138 135 - 145 mmol/LK 3.4 (L) 3.5 - 5.0 mmol/LCL 101 98 - 108 mmol/LCO2 TOTAL 22 (L) 23 - 31 mmol/LAGAP 15 2 - 16BUN 12 7 - 23 mg/dLGLUCOSE 93 70 - 110 mg/dLCREATININE 0.70 0.60 - 1.25 mg/dLTOTAL BILI 1.3 (H) 0.1 - 1.1 mg/dLCALCIUM 9.0 8.6 - 10.6 mg/Ryann PROTEIN 8.5 (H) 6.3 - 8.2 g/dLALBUMIN 4.3 3.5 - 5.0 g/dLALK PHOS 87 34 - 122 U/LALTv 11 5 - 50 U/LAST(SGOT) 35 13 - 40 U/LeGFR 132.0 mL/min/1.63w7LcfrsdjtszUwtjkbvxta Time: 01/04/24 6:22 AMResult Value Ref RangeAPPEARANCE Clear ClearCOLOR Yellow YellowPH 5.0 4.8 - 8.0SP GRAVITY 1.030 1.003 - 1.030GLU U QUAL Normal NormalBLOOD 1+ (A) NegativeKETONES 80 mg/dL (A) NegativePROTEIN 100 mg/dL (A) NegativeUROBILIN Normal NormalBILIRUBIN Negative NegativeNITRITE Negative NegativeLEUK DESTINI Negative NegativeRBC/HPF 2 0 - 3 HPFWBC/HPF 2 0 - 5 HPFBACTERIA Negative NegativeMUCOUS Slight (A) Negative LPFLipaseCollection Time: 01/04/24 6:22 AMResult Value Ref RangeLIPASE 28 0 - 220 U/LCOVID-19 (ID NOW TESTING)Collection Time: 01/04/24 6:22 AMSpecimen: NASOPHARYNGEAL SWABResult Value Ref PduzjBRTC-JdX-6 Rapid ID NOW Not Detected Not DetectedUrine Drug (Immunoassay) - Comprehensive Drug ScreenCollection Time: 01/04/24 6:22 AMResult Value Ref RangeAMPHET Negative NegativeBARB U Negative NegativeBENZO U Negative NegativeCocaine Metabolite Negative NegativeMETHADONE Negative NegativeOPIATES Negative NegativePCP Negative NegativeTHC Presumptive Positive (A) NegativeRapid Strep Screen For Group ACollection Time: 01/04/24 6:38 AMSpecimen: THROAT; SwabResult Value Ref RangeMolecular Strep Negative NegativeRAPID INFLUENZA A/BCollection Time: 01/04/24 6:39 AMSpecimen: NASOPHARYNGEAL SWABResult Value Ref RangeRapid Influenza A Negative NegativeRapid Influenza B Negative NegativeLactic Acid Whole BloodCollection Time: 01/04/24 7:16 AMResult Value Ref RangeLACTIC ACID 0.92 0.50 - 2.20 mmol/LHSabina rogers MD01/04/24 0829 22529-3Evqdvjlzs Emergency department QbivWK6002-76-59K78:29:35Physician Emergency department NoteTXT1.2.840.763632.1.13.104.2.7 .2.403148|[id number] for patient jfae28378-0Wifnrxjlb department NoteLNNARRATIVEFormatted C-CDA narrative text[address] Jx[id number] 53SSMBCLZVCJALKCXDQTFYGA9828-79-04 T08:29:351.2.840.109683.1.72.3.15| 1.2.840.009460.1.13.104.2.7.2.7278 [id number] [facility] 2023-05-24 01:50:00 DNjt8FaLN/m9gRtBHMBR E+2iZYJiO2Mki+ QFAFplVVuM/iVk2B/XUn9fVR75c/1m4337T01:50:00 Awake, alert oriented X4, respiratory even and [...] ER noted upon dischargePt [facility] 39767-3Llpugtdps department OeihTO2441-49-01F27:12:56[facility] department NoteTXT1.2.840.726863.1.13.104.2.7 .2.192912|[id number] for patient mahm68139-2RzmuNI190312139Wxlsqn J Hoot RN[address] AgbtIxkpcoixxBllpwgfngFIVU90644539 10JBAUURBJAGQUCTMNNBQEXR8896-64-80 T03:12:561.2.840.110523.1.72.3.15| 1.2.840.653316.1.13.104.2.7.2.7278 [id number] Sweta Berumen RN [facility] 2023-05-23 23:32:40 6xRxHAq4kFeP8dRt8YlH l/L1nOZgAEUbKL 3ZtAdaKByThiC9VmNStJHoKJSJInVn9875 -08-03T23:32:40 Pt arrived ambulatory with lower abdomen pain x3 weeks and worse this week. Pt reportedly saw PCP and was supposed to get referral to GI but says they never sent the referral. Pt reports daily vomiting. Pt states in March he was diagnosed with gallbladder sludge and has lost 40lbs since then. 55247-2Dhohjwhta department Triage ffwnQW4177-43-10Q52:36:42[facility] Triage noteTXT1.2.840.378006.1.13.104.2.7 .2.406296|[id number] for patient ccrv64429-8Henpplyay department [id number] D Roman RN[address][id number] 74ZJXZHJOVFOCQCDZJAYWRWW7917-13-73 T23:36:421.2.840.284449.1.72.3.15| 1.2.840.762273.1.13.104.2.7.2.7278 [id number] Sasha Diamond RN [facility] 2023-05-23 23:27:00 IbBFyv6YkaVKOt3iLF+H YpLp252YGlqw+Q t4d28IRGtHNTEYto3qN4BMnQldWhA21438 -08-03T23:27:00 [facility] Emergency Department NotePatient Name: Joe Chan of : 2000 22 year old maleTreatment Room: DC3/PC9Ubevffv Record Number: [id number] Care Physician: No primary care provider on file.Patient Escorted by: Family [5]Mode of Arrival: Personal means [1]EMS Treatment Prior to ED Arrival:JANITOR CUSTODIAN treatment: None Travel and Exposure Screening:SymptomsDoes patient [...] reports he was seen in March at [facility] and diagnosed with gallbladder sludge. He [...] 10*3/uL BANDS Increased (*) COMP. METABOLIC PANEL (55515) - Abnormal NA 139 135 - 145 [...] CONTRAST CBC WITH DIFF COMP. METABOLIC PANEL (65888) LIPASE MAGNESIUM HIV 1/2 AG-AB WITH REFLEX [...] 40lb weight loss since March. Seen at [facility] in March and diagnosed with GB [...] PCP - Medicaid HMO [id number] [address] Electronically signed by: Yaneth Peralta DO05/24/23 0145 38512-0Dwhbvlreq Emergency department OdguPY6525-92-25Y79:45:05Physian Emergency department NoteTXT1.2.840.585798.1.13.104.2.7 .2.576445|[id number] for patient shfa09141-1Hlkdtstbt department NoteLN[address] HxkkMtnarwepxNkedbrskaIOXJ98692848 32EYYCRVQZQKIKHTITSMCZHJ1291-42-26 T01:45:051.2.840.238004.1.72.3.15| 1.2.840.390124.1.13.104.2.7.2.7278 [id number] [facility]
--- NOTE | 2024-01-05 16:05 | RAD REPORT ---
[facility] 3[facility]51 pm CLINICAL HISTORY: DYSPNEA COMPARISON: Chest Single View dated 01/02/2024; Chest Pa And Lat (2 Views) dated 06/10/2023; Chest Sin gle View dated 05/29/2023; Chest Single View dated 05/28/2023 TECHNIQUE: Portable AP view of the chest. FINDINGS: Patchy central predominant bilateral airspace opacities more pronounced on the left, with some retrocardiac consolidation. No pneumothorax or effusion. The cardiomediastinal contours are unr emarkable. IMPRESSION: Findings suggestive of multifocal pneumonia with or without central pulmonary edema.
[2024-01-05] MEDS ORDERED: METHYLPREDNISOLONE 125 MG INJ ONE ×2 (16:12→23:45)
[2024-01-05] MEDS ORDERED: IPRATROPIUM BROM 0.5MG/2.5ML ONE (16:12)
[2024-01-05] MEDS ORDERED: ACETAMINOPHEN 500 MG TAB ONE (16:12)
[2024-01-05] MEDS ORDERED: MAGNESIUM SULFATE 1 gm IVPB 1 GM/100 ML BAG IV ONE (16:12)
[2024-01-05] MEDS ORDERED: ALBUTEROL 2.5 MG/3 ML NEB SOL ONE (16:12)
[2024-01-05] MEDS ORDERED: NA CHLORIDE 0.9% 2,000 ML ONE (16:12)
[2024-01-05 16:16] LABS: Absolute Lymphocytes (CBC) 0.2 K/uL (0.7-4.9); Absolute Monocytes 0.5 K/uL (0.1-1.3); Absolute Neutrophil 15.2 K/uL (1.8-8.0); Basophils % 0.2 % (0-1.3); Eosinophils % 0.1 % (0-4.4); Hematocrit 38.6 % (39.6-49.0); Hemoglobin 13.3 g/dL (13.6-17.9); MCH 32.6 pg (27.0-35.0); MCHC 34.4 g/dL (32.0-36.0); MCV 94.9 fL (80-100); Neutrophils % 95.7 % (41.7-73.7); Platelets 285 thou/uL (152-406); RBC Red Blood Cell Count 4.07 M/uL (4.33-5.43); Red Cell Distribution Width 13.3 % (12.1-15.2)
[2024-01-05 16:26] LABS: SARS-CoV-2 Antigen CONTROL BLUE LINE VIS/BG OK; SARS-CoV-2 Antigen Rapid Res Negative (Negative)
[2024-01-05 16:33] LABS: Albumin 2.7 g/dL (3.4-5.0); Albumin/Globulin Ratio 0.6 (1.1-1.8); Anion Gap 15.9 mEq/L (5.0-15.0); Bilirubin Total 0.6 mg/dL (0.2-1.0); Globulin 4.9 g/dL (2.3-3.5); PT Prothrombin Time 17.3 SECONDS (9.5-12.5); PTT, Activated Partial Thromb 38.6 SECONDS (24.3-36.9); Potassium 2.9 mEq/L (3.5-5.1); Protein, Total 7.6 g/dL (6.4-8.2); Protime INR 1.59
--- NOTE | 2024-01-05 16:38 | ER ---
Nurse's Notes [facility] Name: Joe Steiner Age: 23 yrs Sex: Male : 2000 Arrival Date: 01/05/2024 Time: 15:15 Bed 17 Private MD: Diagnosis: multifocal pneumonia;Sepsis, unspecified organism;Acute respiratory failure with hypoxia Presentation: 01/04 15:24 Acuity: OPAL 2 aa5 15:24 Onset of symptoms was December 2023. aa5 15:24 Chief complaint: Patient states: SOB, cough, fever. Pt appears pale during triage and aa5 oral mucosa dry. 15:24 Coronavirus screen: shortness of breath. Ebola Screen: Patient denies travel to an [place] [employer] Ebola-affected area in the 21 days before illness onset. Initial Sepsis Screen: Does the patient meet any 2 criteria? RR > 20 per min. HR > 90 bpm. Yes Does the patient have a suspected source of infection? No. Patient's initial sepsis screen is negative. 15:24 Method Of Arrival: Wheelchair aa 15:24 Risk Assessment: Do you want to hurt yourself or someone else? Patient reports no aa5 desire to harm self or others. Triage Assessment: 15:24 General: Appears ill, Behavior is calm, cooperative. Neuro: Level of Consciousness is aa5 awake, alert, obeys commands, Oriented to person, place, time, situation. Respiratory: Reports shortness of breath Airway is patent Respiratory effort is even, unlabored, Respiratory pattern is regular, symmetrical, Onset: The symptoms/episode began/occurred gradually, the patient has mild shortness of breath. Derm: Skin is dry, Skin is pale, Skin temperature is warm. Historical: - Allergies: 15:23 No Known Allergies; aa5 - PMHx: 15:23 Asthma; aa5 - Immunization history:: Adult Immunizations up to date. - Social history:: Smoking status: Patient reports the use of cigarette tobacco products. Screenin:23 [facility] ED Fall Risk Assessment (Adult) History of falling in the last 3 months, kc6 including since admission No falls in past 3 months (0 pts) Confusion or Disorientation No (0 pts) Intoxicated or Sedated No (0 pts) Impaired Gait No (0 pts) Mobility Assist Device Used No (0 pt) Altered Elimination No (0 pt) Score/Fall Risk Level 0 - 2 = Low Risk. Abuse screen: Denies threats or abuse. Denies injuries from another. Nutritional screening: No deficits noted. Tuberculosis screening: No symptoms or risk factors identified. Assessment: 16:23 General: Appears in no apparent distress. uncomfortable, well groomed, well developed, kc6 Behavior is calm, cooperative, appropriate for age, Reports chills for fever for feeling ill for fatigue for. Pain: Complains of pain in chest and abdomen. Neuro: Level of Consciousness is awake, alert, obeys commands, Oriented to person, place, time, situation, Appropriate for age. Cardiovascular: Reports chest pain, Heart tones S1 S2 present Capillary refill < 3 seconds Rhythm is sinus tachycardia. Respiratory: Reports shortness of breath at rest on exertion cough that is persistent Airway is patent Trachea midline Respiratory effort is even, labored, pursed lip, Respiratory pattern is symmetrical, tachypnea Breath sounds are diminished bilaterally. GI: Abdomen is flat, non-distended, Bowel sounds present X 4 quads. Reports diarrhea, nausea, vomiting. : No signs and/or symptoms were reported regarding the genitourinary system. EENT: No signs and/or symptoms were reported regarding the EENT system. Derm: No signs and/or symptoms reported regarding the dermatologic system. Skin is intact, is healthy with good turgor, Skin is dry, Skin is pale, Skin temperature is warm. Musculoskeletal: No signs and/or symptoms reported regarding the musculoskeletal system. Circulation, motion, and sensation intact. Capillary refill < 3 seconds, Range of motion: intact in all extremities. 17:23 Reassessment: Patient appears in no apparent distress at this time. No changes from kc6 previously documented assessment. Patient and/or family updated on plan of care and expected duration. Pain level reassessed. Patient is alert, oriented x 3, equal unlabored respirations, skin warm/dry/pink. 18:23 Reassessment: Patient appears in no apparent distress at this time. No changes from kc6 previously documented assessment. Patient and/or family updated on plan of care and expected duration. Pain level reassessed. Patient is alert, oriented x 3, equal unlabored respirations, skin warm/dry/pink. 19:00 General: Appears in no apparent distress. uncomfortable, Behavior is calm, cooperative. jw7 Pain: Complains of pain in abdomen and chest Pain does not radiate. Neuro: Level of Consciousness is awake, alert, obeys commands, Oriented to person, place, time, situation. 19:00 Cardiovascular: Heart tones S1 S2 present Capillary refill < 3 seconds Patient's skin jw7 is warm and dry. Rhythm is sinus tachycardia. Respiratory: Reports shortness of breath at rest on exertion cough that is persistent Airway is patent Trachea midline Respiratory effort is even, unlabored, Respiratory pattern is symmetrical, tachypnea Breath sounds are diminished bilaterally. GI: Abdomen is flat, non-distended, Bowel sounds present X 4 quads. Reports diarrhea, nausea, vomiting. : No deficits noted. No signs and/or symptoms were reported regarding the genitourinary system. EENT: No deficits noted. No signs and/or symptoms were reported regarding the EENT system. Derm: Skin is intact, is healthy with good turgor, Skin is dry, Skin is pale, Skin temperature is warm. Musculoskeletal: Circulation, motion, and sensation intact. Range of motion: intact in all extremities. 20:00 Reassessment: Patient appears in no apparent distress at this time. No changes from jw7 previously documented assessment. Patient and/or family updated on plan of care and expected duration. Pain level reassessed. Patient is alert, oriented x 3, equal unlabored respirations, skin warm/dry/pink. 21:30 Reassessment: Patient appears in no apparent distress at this time. No changes from jw7 previously documented assessment. Patient and/or family updated on plan of care and expected duration. Pain level reassessed. Patient is alert, oriented x 3, equal unlabored respirations, skin warm/dry/pink. Vital Signs: 15:24 BP 127 / 70; Pulse 124; Resp 24 S; Temp 100.1(O); Pulse Ox 91% on R/A; Weight 58.97 kg aa5 (R); Height 5 ft. 6 in. (R); 16:23 BP 107 / 82; Pulse 120; Resp 20 S; Pulse Ox 97% on 3 lpm NC; kc6 18:14 BP 111 / 58; Pulse 127; Resp 38 S; Temp 98.6(O); Pulse Ox 95% on 3 lpm NC; kc6 18:54 BP 105 / 61; Pulse 117; Resp 35 S; Pulse Ox 95% on 3 lpm NC; kc6 19:18 BP 114 / 67; Pulse 122; Resp 28 S; Pulse Ox 97% on 3 lpm NC; jw7 20:00 BP 122 / 54; Pulse 110; Resp 40 S; Pulse Ox 95% on 3 lpm NC; jw7 21:30 BP 113 / 68; Pulse 111; Resp 24 S; Pulse Ox 95% on 3 lpm NC; jw7 15:24 Body Mass Index 20.98 (58.97 kg, 167.64 cm) aa5 ED Course: 15:16 Patient arrived in ED. mg5 15:17 Lissy Douglas PA-C is PHCP. sb4 15:17 Neymar Ritter MD is Attending Physician. sb4 15:24 Arm band placed on. aa5 15:32 Oxana Vasquez RN is Primary Nurse. kc6 15:33 Triage completed. aa5 15:53 Chest Single View XRAY In Process Unspecified. EDMS 16:07 Flu Sent. kc6 16:07 SARS RAPID Sent. kc6 16:07 Inserted saline lock: 20 gauge in left antecubital area, using aseptic technique. Blood kc6 collected. Oxygen administration via nasal cannula \T\ 2L/min. 16:23 Patient has correct armband on for positive identification. Bed in low position. Call kc6 light in reach. Side rails up X2. Adult w/ patient. Client placed on continuous cardiac and pulse oximetry monitoring. NIBP monitoring applied. cafeteria monitor on. 16:37 Lorrie Naylor is Hospitalizing Provider. sb4 16:37 Jane Naylor MD is Hospitalizing Provider. sb4 18:12 Chest For PE Angio CT In Process Unspecified. EDMS 19:00 Report received from RADHA Pak. jw7 19:00 Provided Education on: Use of Call Light. jw7 20:37 No provider procedures requiring assistance completed. Patient admitted, IV remains in jw7 place. Administered Medications: 16:22 Drug: Acetaminophen PO 1000 mg PO once Route: PO; kc6 18:20 Follow up: Response: No adverse reaction; Temperature is decreased kc6 16:22 Drug: NS 0.9% IV (30 ml/kg) 30 ml/kg IV at bolus once; Sepsis Protocol Route: IV; Rate: kc6 bolus; Site: left antecubital; 20:40 Follow up: Response: No adverse reaction; IV Status: Completed infusion; IV Intake: jw7 1770ml 16:22 Drug: MethylPrednisoLONE IVP 125 mg IVP once Route: IVP; Site: left antecubital; kc6 18:20 Follow up: Response: No adverse reaction kc6 16:22 Drug: DuoNeb Nebulize (3:1) (2.5 mg - 0.5 mg) 3 ml Nebulizer once Route: Nebulizer; kc6 16:50 Follow up: Response: No adverse reaction kc6 16:22 Drug: Magnesium Sulfate IVPB 1 grams IVPB once over 1 hrs Route: IVPB; Infused Over: 1 kc6 hrs; Site: left antecubital; 18:20 Follow up: Response: No adverse reaction; IV Status: Completed infusion; IV Intake: kc6 100ml 17:09 Drug: AZITHromycin IVPB 500 mg IVPB once over 1 hrs; (mix in 250 mL NS) Route: IVPB; kc6 Infused Over: 1 hrs; Site: left antecubital; 18:53 Follow up: Response: No adverse reaction; IV Status: Completed infusion; IV Intake: kc6 250ml 17:09 Drug: Rocephin IV 1 grams IV at calculated rate once; Given slow IV push per pharmacy kc6 instructions Route: IV; Rate: calculated rate; Site: left antecubital; 18:20 Follow up: Response: No adverse reaction; IV Status: Completed infusion; IV Intake: 24asra1 17:09 Drug: Potassium PO Effervescent Tablet 50 mEq PO once; dissolve in 4 ounces of water or kc6 juice Route: PO; 18:20 Follow up: Response: No adverse reaction kc6 17:09 Drug: Ondansetron IVP 4 mg IVP once; over 2 minutes Route: IVP; Site: left antecubital; kc6 18:20 Follow up: Response: No adverse reaction; Nausea is decreased kc6 Medication: 20:37 VIS not applicable for this client. jw7 Intake: 18:20 IV: 100ml; Total: 100ml. kc6 18:20 IV: 50ml; Total: 150ml. kc6 18:53 IV: 250ml; Total: 400ml. kc6 20:40 IV: 1770ml; Total: 2170ml. jw7 Outcome: 16:37 Decision to Hospitalize by Provider. sb4 21:57 Admitted to ICU accompanied by tech, via wheelchair, room 5, with oxygen, jw7 21:57 Condition: stable 21:57 Instructed on the need for admit, Demonstrated understanding of instructions, 21:58 Patient left the ED. jb4 Signatures: Dispatcher [employer] Monique Mendoza, RN RN aa5 Tai Wells RN RN jb4 Jackeline Buitrago RN RN jw7 Oxana Vasquez RN RN Lissy Segura PABal PA-Isak sb4 Josee Burnett mg5
--- NOTE | 2024-01-05 16:38 | EDPHYS ---
Physician Documentation [facility] Name: Joe Steiner Age: 23 yrs Sex: Male : 2000 Arrival Date: 01/05/2024 Time: 15:15 Bed 17 Private MD: ED Physician Neymar Ritter HPI: 01/04 15:38 This 23 yrs old Male presents to ER via Wheelchair with complaints of sb4 Breathing Difficulty, Cough, Fever. 15:38 Patient has been feeling poorly for 3 days now with shortness of breath, cough, fever, sb4 vomiting. He was seen here 3 days ago with a negative workup and discharged home. The next day he went to [place] ED where he was diagnosed with pneumonia and prescribed steroids and antibiotics. States that he is still not getting better. Reports persistent fever, cough, shortness of breath. Historical: - Allergies: 15:23 No Known Allergies; aa5 - PMHx: 15:23 Asthma; aa5 - Immunization history:: Adult Immunizations up to date. - Social history:: Smoking status: Patient reports the use of cigarette tobacco products. ROS: 15:38 Cardiovascular: Negative for chest pain, palpitations, and edema, sb4 15:38 Constitutional: Positive for fatigue, fever, malaise, poor PO intake, 15:38 Respiratory: Positive for cough, shortness of breath, wheezing, 15:38 Abdomen/GI: Positive for nausea and vomiting, 15:38 All other systems are negative, Exam: 15:38 Abdomen/GI: Soft, non-tender, no distension. MS/ Extremity: Pulses equal, no sb4 cyanosis. Neurovascular intact. Full, normal range of motion. 15:38 Constitutional: The patient appears alert, awake, obviously ill, pale, 15:38 ENT: Mouth: Oral mucosa: dry, 15:38 Cardiovascular: Rate: tachycardic, Rhythm: regular, Pulses: no pulse deficits are appreciated, 15:38 Respiratory: moderate respiratory distress is noted, Respirations: labored breathing, Breath sounds: wheezing: expiratory that is moderate, is scattered, Respiratory rate: 24 15:38 Skin: 15:38 Skin: Appearance: Temperature: warm, Vital Signs: 15:24 BP 127 / 70; Pulse 124; Resp 24 S; Temp 100.1(O); Pulse Ox 91% on R/A; Weight 58.97 kg aa5 (R); Height 5 ft. 6 in. (R); 16:23 BP 107 / 82; Pulse 120; Resp 20 S; Pulse Ox 97% on 3 lpm NC; kc6 18:14 BP 111 / 58; Pulse 127; Resp 38 S; Temp 98.6(O); Pulse Ox 95% on 3 lpm NC; kc6 18:54 BP 105 / 61; Pulse 117; Resp 35 S; Pulse Ox 95% on 3 lpm NC; kc6 19:18 BP 114 / 67; Pulse 122; Resp 28 S; Pulse Ox 97% on 3 lpm NC; jw7 20:00 BP 122 / 54; Pulse 110; Resp 40 S; Pulse Ox 95% on 3 lpm NC; jw7 21:30 BP 113 / 68; Pulse 111; Resp 24 S; Pulse Ox 95% on 3 lpm NC; jw7 15:24 Body Mass Index 20.98 (58.97 kg, 167.64 cm) aa5 MDM: 15:25 Patient medically screened. sb4 16:36 Antibiotic administration: Rocephin and Zithromax given. Data interpreted: Pulse sb4 oximetry: on 3L(s) per nasal canula, is 97 %. Data reviewed: vital signs, nurses notes, lab test result(s), EKG, radiologic studies, and as a result, I will admit patient. Consideration of Admission/Observation Patient was admitted/placed on observation. Counseling: I had a detailed discussion with the patient and/or guardian regarding the historical points, exam findings, and any diagnostic results supporting the discharge/admit diagnosis, lab results, radiology results, the need for further work-up and treatment in the hospital. 01/04 15:30 Order name: Blood Culture Adult (2) sb4 01/04 15:30 Order name: CBC with Diff; Complete Time: 18:51 sb4 01/04 15:30 Order name: CMP; Complete Time: 16:35 sb4 01/04 15:30 Order name: Lactate w/ 2H reflex if indic.; Complete Time: 16:35 sb4 01/04 15:30 Order name: Protime (+inr); Complete Time: 16:35 sb4 01/04 15:30 Order name: Ptt, Activated; Complete Time: 16:35 sb4 01/04 15:31 Order name: SARS RAPID; Complete Time: 16:27 sb4 01/04 15:31 Order name: Flu; Complete Time: 16:42 sb4 01/04 18:50 Order name: CBC Smear Scan; Complete Time: 18:51 EDMS 01/04 19:51 Order name: ABG Arterial Blood Gas EDMS 01/04 19:51 Order name: ABG Arterial Blood Gas EDMS 01/04 19:51 Order name: CBC with Automated Diff EDMS 01/04 19:51 Order name: CBC with Automated Diff; Complete Time: 09:44 EDMS 01/04 19:51 Order name: Comprehensive Metabolic Panel EDMS 01/04 19:51 Order name: Comprehensive Metabolic Panel; Complete Time: 09:44 EDMS 01/04 19:51 Order name: Lactate w/ 2H reflex if indic. EDMS 01/04 19:51 Order name: Lactate w/ 2H reflex if indic.; Complete Time: 09:44 EDMS 01/04 19:51 Order name: Lipid Profile EDMS 01/04 19:51 Order name: Lipid Profile; Complete Time: 09:44 EDMS 01/04 19:51 Order name: Magnesium EDMS 01/04 19:51 Order name: Magnesium; Complete Time: 09:44 EDMS 01/04 19:51 Order name: NT PRO-BNP EDMS 01/04 19:51 Order name: NT PRO-BNP; Complete Time: 09:44 EDMS 01/04 19:51 Order name: Phosphorus EDMS 01/04 19:51 Order name: Phosphorus; Complete Time: 09:44 EDMS 01/04 19:51 Order name: Troponin High Sensitivity EDMS 01/04 19:51 Order name: Troponin High Sensitivity; Complete Time: 09:44 EDMS 01/04 19:52 Order name: HIV Ag/Ab Combo EDMS 01/04 19:52 Order name: HIV Ag/Ab Combo EDMS 01/04 19:53 Order name: C.difficile GDH Ag EDMS 01/04 19:53 Order name: Fecal Leukocyte Stain EDMS 01/04 19:53 Order name: Stool Culture EDMS 01/04 15:30 Order name: Chest Single View XRAY; Complete Time: 16:05 sb4 01/04 17:14 Order name: Chest For PE Angio CT; Complete Time: 18:59 sb4 01/04 15:30 Order name: EKG; Complete Time: 15:30 sb4 01/04 19:51 Order name: CONS Physician Consult EDWV 01/04 15:30 Order name: Accucheck; Complete Time: 16:07 sb4 01/04 15:30 Order name: Cardiac monitoring; Complete Time: 15:32 sb4 01/04 15:30 Order name: EKG - Nurse/Tech; Complete Time: 16:07 sb4 01/04 15:30 Order name: IV Saline Lock - Large Bore; Complete Time: 16:07 sb4 01/04 15:30 Order name: Labs collected and sent; Complete Time: 16: sb4 01/04 15:30 Order name: O2 Per Protocol; Complete Time: 15:32 sb4 01/04 15:30 Order name: O2 Sat Monitoring; Complete Time: 15:32 sb4 01/04 15:30 Order name: Vital Signs; Complete Time: 15:32 sb4 EC:05 Rate is 115 beats/min. Rhythm is regular, Sinus tachycardia. [place] interval is normal at sb4 116 msec. QRS interval is normal at 88 msec. QT interval is normal at 298 msec. No Q waves. T waves are Normal. No ST changes noted. Clinical impression: Sinus tachycardia and No evidence of ischemia. Interpreted by me. Reviewed by me. Administered Medications: 16:22 Drug: Acetaminophen PO 1000 mg PO once Route: PO; kc6 18:20 Follow up: Response: No adverse reaction; Temperature is decreased kc6 16:22 Drug: NS 0.9% IV (30 ml/kg) 30 ml/kg IV at bolus once; Sepsis Protocol Route: IV; Rate: kc6 bolus; Site: left antecubital; 20:40 Follow up: Response: No adverse reaction; IV Status: Completed infusion; IV Intake: jw7 1770ml 16:22 Drug: MethylPrednisoLONE IVP 125 mg IVP once Route: IVP; Site: left antecubital; kc6 18:20 Follow up: Response: No adverse reaction kc6 16:22 Drug: DuoNeb Nebulize (3:1) (2.5 mg - 0.5 mg) 3 ml Nebulizer once Route: Nebulizer; kc6 16:50 Follow up: Response: No adverse reaction kc6 16:22 Drug: Magnesium Sulfate IVPB 1 grams IVPB once over 1 hrs Route: IVPB; Infused Over: 1 kc6 hrs; Site: left antecubital; 18:20 Follow up: Response: No adverse reaction; IV Status: Completed infusion; IV Intake: kc6 100ml 17:09 Drug: AZITHromycin IVPB 500 mg IVPB once over 1 hrs; (mix in 250 mL NS) Route: IVPB; kc6 Infused Over: 1 hrs; Site: left antecubital; 18:53 Follow up: Response: No adverse reaction; IV Status: Completed infusion; IV Intake: kc6 250ml 17:09 Drug: Rocephin IV 1 grams IV at calculated rate once; Given slow IV push per pharmacy kc6 instructions Route: IV; Rate: calculated rate; Site: left antecubital; 18:20 Follow up: Response: No adverse reaction; IV Status: Completed infusion; IV Intake: 27mgwl8 17:09 Drug: Potassium PO Effervescent Tablet 50 mEq PO once; dissolve in 4 ounces of water or kc6 juice Route: PO; 18:20 Follow up: Response: No adverse reaction kc6 17:09 Drug: Ondansetron IVP 4 mg IVP once; over 2 minutes Route: IVP; Site: left antecubital; kc6 18:20 Follow up: Response: No adverse reaction; Nausea is decreased kc6 Disposition: 16:32 Co-signature as Attending Physician, Neymar Ritter MD I agree with the assessment and cp3 plan of care. Disposition Summary: 01/05/24 16:37 Hospitalization Ordered Notes: Hospitalization Status: Inpatient Admission sb4 Provider: Jane Naylor sb4 Condition: Fair sb4 Problem: new sb4 Symptoms: are unchanged sb4 Bed/Room Type: Standard sb4 Location: Intensive Care Unit(01/05/24 19:53) Room Assignment: 5-(01/05/24 19:53) cg Diagnosis - multifocal pneumonia sb4 - Sepsis, unspecified organism sb4 - Acute respiratory failure with hypoxia sb4 Forms: - Medication Reconciliation Form sb4 - SBAR form sb4 - Leadership Thank You Letter sb4 Signatures: Dispatcher [employer] Neymar Samuel MD MD cp3 Monique Sharpe RN RN aa5 Jennifer Davies RN RN Jackeline Buitrago RN RN jw7 Oxana Vasquez RN RN kc6 Lissy Douglas PA-C PA-C sb4 Corrections: (The following items were deleted from the chart) 15:40 15:38 Skin: sb4 sb4 16:37 16:36 Data interpreted: Pulse oximetry: on room air is 97 %. sb4 sb4 19:53 16:37 Telemetry/MedSurg (Inpatient) sb4 cg 19:53 16:37 sb4 cg
[2024-01-05] MEDS ORDERED: CEFTRIAXONE 1000 MG/VIAL ONE (16:56)
[2024-01-05] MEDS ORDERED: POTASSIUM 25 MEQ EFFERV TAB ONE (16:56)
[2024-01-05] MEDS ORDERED: AZITHROMYCIN 500 MG INJ IVPB ONE (16:56)
[2024-01-05] MEDS ORDERED: NA CHLORIDE 0.9% 250 ML ONE (16:57)
[2024-01-05] MEDS ORDERED: ONDANSETRON 4 MG/2 ML VIAL ONE (16:57)
[2024-01-05 18:50] LABS: Blood Morphology Comment NOT SEEN (NOT SEEN); Platelet Estimate ADEQ; White Blood Cell Scan OK (OK)
--- NOTE | 2024-01-05 18:58 | RAD REPORT ---
EXAM DESCRIPTION: CT - Chest For Pe Angio - 01/05/2024 6:09 pm CLINICAL HISTORY: Chest pain;Cough;Fever COMPARISON: Thorax Wo Con dated 05/25/2023; Chest Single View dated 01/05/2024 TECHNIQUE: Thin axial CT images of the chest were obtained following administration of 100 mL Isovue 370 IV contrast. Multiplanar reconstructions, and maximum intensity projection reconstructions were generated and reviewed. Exam utilizes a protocol for optimal evaluation of pulmonary arterial tree. All CT scans are performed using dose optimization technique as appropriate and may include automated exposure control or mA/KV adjustment according to patient size. FINDINGS: Dense streak artifact resulting from dense venous contrast along the SVC, as well as breat rodrigue motion artifact in the lower lungs both limit evaluation. Pulmonary arteries are, without emboli or other suspicious finding allowing for these limitations. No acute or significant aorta findings. Patchy but fairly symmetric airspace opacities, with peripheral and basilar predominant pattern. Thes e are mostly of ground-glass nature, however the dependent basilar demonstrate a patchy consolidative appearance. No pleural thickening or pleural effusion. No pneumothorax. No abnormal mediastinal or hilar masses or lymphadenopathy seen. No chest wall mass or abnormal axill iary lymphadenopathy. IMPRESSION: No evidence of acute central pulmonary emboli. Patchy basal and peripheral predominant airspace opacities as above. Findings may relate to atypical pulmonary edema or ARDS.
--- NOTE | 2024-01-05 19:42 | P.HP ---
Certification for Inpatient Patient admitted to: Inpatient With expected LOS: >2 Midnights Patient will require the following post-hospital care: None Practitioner: I am a practitioner with admitting privileges, knowledge of patient current condition, hospital course, and medical plan of care. Services: Services provided to patient in accordance with Admission requirements found in Title 42 Section 412.3 of the Code of Federal Regulations Patient History Date of Service: 01/05/24 Reason for admission: Acute hypoxic respiratory failure History of Present Illness: Patient is a 23-year-old gentleman with a history of asthma and a recent admission for multifocal pneumonia about 6 months ago who presented to the emergency room with cough and congestion. Patient has been in the emergency room last week, and at that time his workup was unremarkable so he was discharged home. He continued to feel poorly so he ended up going to [facility]. At that time, he had imaging studies in the emergency room which revealed a pneumonic infiltrate. Patient was given antibiotics. However, he was unable to take many of the antibiotics that he was having persistent nausea and vomiting. Patient also been having diarrhea for the last 3 to 4 days. He is lost quite a bit of weight and he was becoming more tachypneic so his mother who works in [employer] [facility] [employer] brought him to our ER once again. In the emergency room, patient was tachycardic and tachypneic. He was given nebs, steroids, and antibiotics. Patient was also given antiemetics and IV fluids. Patient had chest x-ray which showed multifocal pneumonia. CT imaging revealed diffuse infiltrates. Patient also has a lymphopenia with lymphocyte counts roughly about 1000 for the last few months. Patient also appears to have a coagulopathy with his PT and PTT both elevated. Patient also with a metabolic acidosis. Patient will be admitted to the intensive care unit for IV fluids and IV steroids. Will need to workup the etiology of his lymphopenia. Patient had an HIV test about 6 to 7 months ago which was negative. However he has a significant decrease in his lymphocyte count which is most likely affecting his ability to get better from his clinical condition. Will get a pulmonary consultation and we may need to get hematology on board. I repeat his HIV test, and with his lymphopenia we need to keep in mind that patient may have an opportunistic infection. We will get patient admitted to the ICU. Allergies No Known Allergies Allergy (Unverified 12/04/16 20:15) Home Medications: levoFLOXacin [Levaquin*] 500 mg PO DAILY #7 tab 05/30/23 predniSONE [Prednisone*] 20 mg PO BID #14 tab 05/30/23 - Past Medical/Surgical History Diabetic: No -: Asthma -: Pneumonia Past Surgical History: Patient denies surgical history - Family History Father Family History: Reviewed- Non-Contributory - Social History Smoking Status: Former smoker Smoking therapy provided: No Alcohol use: No CD- Drugs: Yes Caffeine use: Yes Physical Examination - Vital Signs Temperature: 99 F Blood Pressure: 110/80 Pulse: 80 Respirations: 18 Pulse Ox (%): 95 - Physical Exam General: Alert, In no apparent distress, Oriented x3, Moderate distress HEENT: Atraumatic, PERRLA, Mucous membr. moist/pink, EOMI, Sclerae nonicteric Neck: Supple, 2+ carotid pulse no bruit, No LAD, Without JVD or thyroid abnormality Respiratory: Diminished, Rhonchi/gurgles Cardiovascular: Other (Tachycardic with no murmurs) Gastrointestinal: Normal bowel sounds, Soft and benign, Non-distended, No tenderness Musculoskeletal: No clubbing, No swelling, No tenderness Integumentary: No rashes Neurological: Normal gait, Normal speech, Normal strength at 5/5 x4 extr, Normal tone, Sensation intact, Cranial nerves 3-12 intact, Normal affect Lymphatics: No axilla or inguinal lymphadenopathy - Studies Laboratory Data (last 24 hrs) 01/05/24 01/05/24 01/05/24 16:00 16:00 16:00 WBC 15.90 H Hgb 13.3 L Hct 38.6 L Plt Count 285 PT 17.3 H INR 1.59 APTT 38.6 H Sodium 135 L Potassium 2.9 L BUN 8 Creatinine 0.72 Glucose 101 Total Bilirubin 0.6 AST 35 ALT 11 L Alkaline Phosphatase 70 Microbiology Data (last 24 hrs): 01/05/24 15:45 Nasopharnyx Influenza Type A Antigen Screen - Final 01/05/24 15:45 Nasopharnyx Influenza Type B Antigen Screen - Final Assessment & Plan - Problems (Diagnosis) (1) Acute hypoxic respiratory failure Current Visit: Yes Status: Acute (2) Lymphopenia Current Visit: Yes Status: Acute (3) Metabolic acidosis Current Visit: Yes Status: Acute (4) Hypokalemia Current Visit: Yes Status: Acute - Plan Plan: 1. Continue with IV antibiotics 2. Awaiting sputum and blood culture 3. Repeat chest x-ray 4. CT scan of the chest pending 5. Pulmonary consultation 6. Continue with nebs as needed 7. O2 per protocol 8. Continue with gentle hydration 9. Repeat labs including CBC and renal function in a.m. HIV testing; 10. GI and DVT prophylaxis Discharge Plan: Home Plan to discharge in: Greater than 2 days - Advance Directives Does patient have a Living Will: No Does patient have a Durable POA for Healthcare: No - Code Status/Comfort Care Code Status Assessed: Yes Code Status: Full Code Critical Care: Yes Time Spent Managing PTS Care (In Minutes): 55
[2024-01-05] MEDS ORDERED: ONDANSETRON 4 MG/2 ML VIAL IV PRN (19:44)
[2024-01-05] MEDS ORDERED: SODIUM CHLORIDE 0.9% 10ML INJ IV PRN (19:50)
[2024-01-05] MEDS: Levofloxacin 750mg IV 750 MG/150 ML BAG IV SCH (22:07)
[2024-01-05] MEDS: NA CHLORIDE 0.9% 1,000 ML IV SCH (22:07)
[2024-01-05] MEDS: PANTOPRAZOLE 40 MG INJ IVP SCH (22:12)
[2024-01-05] MEDS ORDERED: GUAIFENESIN/CODEINE 5ML UCUP ONE (23:52)
[2024-01-05] MEDS: GUAIFENESIN/CODEINE 5ML UCUP PO PRN (23:55)
[2024-01-05] MEDS: METHYLPREDNISOLONE 125 MG INJ IV SCH (23:55)
[2024-01-05 23:59] LABS: Specific Gravity > 1.030 (1.005-1.030); Sqamous Epithelial None Seen /HPF (None Seen); Urine Bacteria <20 /HPF (<20); Urine Bilirubin NEGATIVE (Negative); Urine Blood Trace (Negative); Urine Clarity Clear (Clear); Urine Color Light-Yellow (Yellow); Urine Culture Reflex Order NOT NEEDED; Urine Glucose 4+ (Over) (Negative); Urine Ketones 4+ (Over) (Negative); Urine Microscopic Reflex YN ORDER UMIC; Urine Mucus Slight /HPF (None Seen); Urine Nitrite NEGATIVE (Negative); Urine Protein 1+ (Negative); Urine RBC <5 /HPF (None Seen); Urine Urobilinogen Normal (Normal); Urine WBC <5 /HPF (<5); Urine pH 5.5 (5.0-7.0)
[2024-01-06] MEDS ORDERED: ACETAMINOPHEN 500 MG TAB ONE ×2 (00:42→05:31)
[2024-01-06] MEDS: ACETAMINOPHEN 500 MG TAB PO PRN (00:45)
[2024-01-06] MEDS ORDERED: ALPRAZOLAM 0.5 MG TABLET ONE (00:55)
[2024-01-06] MEDS: ALPRAZOLAM 0.5 MG TABLET PO ONE (00:56)
[2024-01-06] MEDS ORDERED: METHYLPREDNISOLONE 125 MG INJ ONE ×2 (04:50→11:47)
[2024-01-06 07:55] LABS: Absolute Lymphocytes (CBC) 0.2 K/uL (0.7-4.9); Absolute Monocytes 0.4 K/uL (0.1-1.3); Absolute Neutrophil 23.4 K/uL (1.8-8.0); Basophils % 0.1 % (0-1.3); Eosinophils % 0.1 % (0-4.4); Hematocrit 37.3 % (39.6-49.0); Hemoglobin 12.6 g/dL (13.6-17.9); Lymphocytes % 0.9 % (15.3-44.8); MCH 32.2 pg (27.0-35.0); MCHC 33.7 g/dL (32.0-36.0); MCV 95.6 fL (80-100); MPV 7.9 fL (7.6-11.3); Monocytes % 1.8 % (3.3-12.3); Neutrophils % 97.1 % (41.7-73.7); Platelets 294 thou/uL (152-406); Red Cell Distribution Width 13.2 % (12.1-15.2)
[2024-01-06 08:36] LABS: Albumin 2.5 g/dL (3.4-5.0); Albumin/Globulin Ratio 0.5 (1.1-1.8); Anion Gap 8.6 mEq/L (5.0-15.0); Bilirubin Total 0.3 mg/dL (0.2-1.0); Globulin 4.6 g/dL (2.3-3.5); Magnesium 2.6 mg/dL (1.6-2.4); Phosphorus 2.3 mg/dL (2.5-4.9); Potassium 3.6 mEq/L (3.5-5.1); Protein, Total 7.1 g/dL (6.4-8.2)
[2024-01-06 09:03] LABS: Band Neutrophils 6 % (0-1); Blood Morphology Comment NOT SEEN (NOT SEEN); Differential Total Cells Count 100; Lymphocytes 0 % (15-42); Monocytes 1 % (0-10); Platelet Estimate ADEQ; Segmented Neutrophils 93 % (40-80)
[2024-01-06] MEDS: ENOXAPARIN 40 MG/0.4 ML SQ SCH (09:07)
[2024-01-06] MEDS: POTASSIUM CL SA 10 MEQ TAB PO SCH (09:07)
[2024-01-06] MEDS ORDERED: SODIUM CHLORIDE 0.9% 10ML INJ IV PRN (12:20)
--- NOTE | 2024-01-06 12:20 | P.CNS ---
Date of Consult: 01/06/24 Reason for Consult: Respiratory failure bilateral pneumonia Chief Complaint: Acute hypoxic respiratory failure History of Present Illness: Patient is 23 years of age became sick last went to [facility] emergency room was discharged came back to the hospital hypoxic bilateral pulmonary infiltrates with white count elevated patient is hypoxic denies any prior cardiopulmonary problems history of asthma Allergies No Known Allergies Allergy (Unverified 12/04/16 20:15) Home Medications: predniSONE [Prednisone*] 20 mg PO BID #14 tab 05/30/23 Famotidine [Pepcid] 20 mg PO Q12H 01/05/24 Metoprolol Tartrate 25 mg PO BID 01/05/24 - Past Medical/Surgical History Diabetic: No -: Asthma -: Pneumonia - Family History Father Family History: Reviewed- Non-Contributory - Social History Smoking Status: Current every day smoker Alcohol use: No CD- Drugs: Yes Caffeine use: Yes Place of Residence: Home Review of Systems 10-point ROS is otherwise unremarkable General: Weakness Respiratory: Cough, Shortness of Breath Physical Examination Temp Pulse Resp BP Pulse Ox 99 F 56 12 120/77 91 01/06/24 09:35 01/06/24 10:00 01/06/24 10:00 01/06/24 10:00 01/06/24 10:00 General: Alert, Oriented x3, Moderate distress Respiratory: Clear to auscultation bilaterally, Crackles/rales Gastrointestinal: Normal bowel sounds, Soft and benign Integumentary: No rashes, No breakdown Laboratory Data (last 24 hrs) 01/05/24 01/05/24 01/05/24 16:00 16:00 16:00 WBC 15.90 H Hgb 13.3 L Hct 38.6 L Plt Count 285 PT 17.3 H INR 1.59 APTT 38.6 H Sodium 135 L Potassium 2.9 L BUN 8 Creatinine 0.72 Glucose 101 Total Bilirubin 0.6 AST 35 ALT 11 L Alkaline Phosphatase 70 - Problems (1) Pneumonia Current Visit: No Status: Acute Plan: Patient is 23 years of age admitted with bilateral pulmonary infiltrates most likely bilateral pneumonia may be atypical as white count is elevated chest x- ray reviewed CT scan reviewed reveals severe community-acquired pneumonia labs chemistries reviewed DC IV fluids continue with IV levofloxacin still he has some abdominal discomfort Qualifiers: Pneumonia type: due to unspecified organism Laterality: bilateral
[2024-01-06] MEDS: DEXMEDETOMIDINE HCL 200 MCG in NA CHLORIDE 0.9% 98 ML IV SCH (12:23)
--- NOTE | 2024-01-06 12:39 | RAD REPORT ---
EXAM DESCRIPTION: RAD - Chest Single View - 01/06/2024 12:32 pm CLINICAL HISTORY: PNA COMPARISON: Chest Single View dated 01/05/2024; Chest Single View dated 01/02/2024; Chest Pa And Lat ( 2 Views) dated 06/10/2023; Chest Single View dated 05/29/2023 FINDINGS: Lines: None. Lungs: Patchy bilateral airspace disease, left greater than right similar to 01/05/24. Pleural: No significant pleural effusions or pneumothorax. Cardiac: Cardiomegaly . Mediastinum: Within normal limits. Bones: No acute fractures. Other: None IMPRESSION: Similar bilateral airspace disease concerning for multifocal pneumonia.
[2024-01-06 13:14] LABS: Arterial Blood Carboxyhemoglob 0.8 % (0-1.5); Blood Gas Oxyhemoglobin 86.1 % (94-97); Blood Gas THB 13.8 g/dl (12-18); Blood O2 Saturation 88.2 % (92-98.5)
[2024-01-06] MEDS ORDERED: ALBUTEROL 2.5 MG/3 ML NEB SOL ONE ×2 (13:39→20:04)
--- NOTE | 2024-01-06 14:24 | EKG ---
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
--- NOTE | 2024-01-06 14:47 | P.PN ---
Subjective Date of Service: 01/06/24 Chief Complaint: Acute hypoxic respiratory failure Pt is resting comfortably in bed. He was sleeping when I saw him. Waiting on some labs studies. No other complaints. Pt is using 4L BNC. Review of Systems General: Weakness Eyes: Unremarkable ENT: Unremarkable Respiratory: Unremarkable Cardiovascular: Unremarkable Gastrointestinal: Unremarkable Genitourinary: Unremarkable Musculoskeletal: Unremarkable Integumentary: Unremarkable Neurological: Unremarkable Lymphatics: Unremarkable Physical Examination - Vital Signs Temperature: 97.1 F Blood Pressure: 119/78 Pulse: 79 Respirations: 24 Pulse Ox (%): 97 - Physical Exam General: Alert, In no apparent distress, Oriented x3 HEENT: Atraumatic, Normocephalic Neck: Supple, 2+ carotid pulse no bruit Respiratory: Clear to auscultation bilaterally, Normal air movement Cardiovascular: No edema, Normal pulses, Regular rate/rhythm, Normal S1 S2 Capillary refill: <2 Seconds Gastrointestinal: Normal bowel sounds, Soft and benign, Non-distended Musculoskeletal: No clubbing, No swelling Integumentary: No rashes, No breakdown, No significant lesion Neurological: Normal gait, Normal speech, Normal strength at 5/5 x4 extr Lymphatics: No axilla or inguinal lymphadenopathy - Studies Laboratory Data (last 24 hrs) 01/05/24 01/05/24 01/05/24 16:00 16:00 16:00 WBC 15.90 H Hgb 13.3 L Hct 38.6 L Plt Count 285 PT 17.3 H INR 1.59 APTT 38.6 H Sodium 135 L Potassium 2.9 L BUN 8 Creatinine 0.72 Glucose 101 Total Bilirubin 0.6 AST 35 ALT 11 L Alkaline Phosphatase 70 Microbiology Data (last 24 hrs): 01/05/24 15:45 Nasopharnyx Influenza Type A Antigen Screen - Final 01/05/24 15:45 Nasopharnyx Influenza Type B Antigen Screen - Final Assessment And Plan - Plan Acute resp failure with hypoxia: CTA chest shows patchy basal and peripheral predominant airspace opacities. Will continue levaquin. Pulm is following. Lymphopenia: WBC is 15.9. Will continue levaquin. Will check for HIV. Consulted sausage cooker. Metabolic acidosis: Will continue gentle hydration. Hypokalemia: K is 2.9. Will replete and monitor. Mag ios 2.6 GI ppx: protonix DVT prophylaxis: heparin Discharge Plan: Home
[2024-01-06] MEDS ORDERED: GUAIFENESIN/CODEINE 5ML UCUP ONE (16:15)
[2024-01-06] MEDS: METHYLPREDNISOLONE 40 MG INJ IV SCH (16:16)
[2024-01-06] MEDS ORDERED: IPRATROPIUM BROM 0.5MG/2.5ML ONE (20:04)
[2024-01-06] MEDS: IPRATROPIUM BROM 0.5MG/2.5ML NEB SCH (20:13)
[2024-01-06] MEDS: ALBUTEROL 2.5 MG/3 ML NEB SOL NEB SCH (20:13)
[2024-01-06] MEDS: DEXMEDETOMIDINE HCL 1,000 MCG in NA CHLORIDE 0.9% 490 ML IV SCH (21:20)
[2024-01-06 22:32] LABS: C.diff Antigen/Toxin Ag neg : Tox neg (NEG : NEG); CDIFF INTERNAL NEG CONTROL White Background (WHITE BKGD); STOOL CONSISTENCY Liquid/Semi-Solid
[2024-01-07] MEDS ORDERED: IPRATROPIUM BROM 0.5MG/2.5ML ONE ×3 (00:36→13:15)
[2024-01-07] MEDS ORDERED: ALBUTEROL 2.5 MG/3 ML NEB SOL ONE ×3 (00:36→13:15)
[2024-01-07 04:54] LABS: Absolute Eosinophils 0.1 K/uL (0-0.5); Absolute Lymphocytes (CBC) 0.3 K/uL (0.7-4.9); Absolute Monocytes 0.7 K/uL (0.1-1.3); Absolute Neutrophil 30.5 K/uL (1.8-8.0); Basophils % 0.1 % (0-1.3); Eosinophils % 0.4 % (0-4.4); Hematocrit 35.8 % (39.6-49.0); Hemoglobin 12.2 g/dL (13.6-17.9); MCH 32.1 pg (27.0-35.0); MCHC 33.9 g/dL (32.0-36.0); MCV 94.7 fL (80-100); MPV 7.7 fL (7.6-11.3); Monocytes % 2.3 % (3.3-12.3); Neutrophils % 96.2 % (41.7-73.7); Platelets 327 thou/uL (152-406); RBC Red Blood Cell Count 3.78 M/uL (4.33-5.43); Red Cell Distribution Width 13.6 % (12.1-15.2)
[2024-01-07 05:14] LABS: Anion Gap 9.5 mEq/L (5.0-15.0); Magnesium 2.2 mg/dL (1.6-2.4); Phosphorus 1.8 mg/dL (2.5-4.9); Potassium 3.5 mEq/L (3.5-5.1)
[2024-01-07] MEDS: POTASS/SODIUM PHOSPHATE 1 PKT POWD.PACK PO SCH (08:21)
[2024-01-07] MEDS: POTASSIUM CL SA 10 MEQ TAB PO ONE (08:22)
[2024-01-07] MEDS: PANTOPRAZOLE 40 MG INJ IVP SCH (08:22)
[2024-01-07 08:31] LABS: Band Neutrophils 6 % (0-1); Blood Morphology Comment NOT SEEN (NOT SEEN); Differential Total Cells Count 100; Lymphocytes 1 % (15-42); Monocytes 2 % (0-10); Platelet Estimate ADEQ; Segmented Neutrophils 91 % (40-80); Toxic Granulation PRESENT
--- NOTE | 2024-01-07 10:41 | P.PN ---
Subjective Date of Service: 01/07/24 Chief Complaint: Acute hypoxic respiratory failure Pt is resting comfortably in bed. He is using HFNC 30 L with 60% fio2. Currently on precededx for anxiety. Waiting on some labs studies. No other complaints. Review of Systems General: Unremarkable Eyes: Unremarkable ENT: Unremarkable Respiratory: SOB with Excertion Cardiovascular: Unremarkable Gastrointestinal: Unremarkable Genitourinary: Unremarkable Musculoskeletal: Unremarkable Integumentary: Unremarkable Neurological: Unremarkable Lymphatics: Unremarkable Physical Examination - Vital Signs Temperature: 97.6 F Blood Pressure: 123/82 Pulse: 59 Respirations: 26 Pulse Ox (%): 94 - Physical Exam General: Alert, In no apparent distress, Oriented x3 HEENT: Atraumatic, Normocephalic Neck: Supple, 2+ carotid pulse no bruit Respiratory: Clear to auscultation bilaterally, Normal air movement Cardiovascular: No edema, Normal pulses, Regular rate/rhythm, Normal S1 S2 Capillary refill: <2 Seconds Gastrointestinal: Normal bowel sounds, Soft and benign, Non-distended Musculoskeletal: No clubbing, No swelling Integumentary: No rashes, No breakdown, No significant lesion Neurological: Normal gait, Normal speech, Normal strength at 5/5 x4 extr Lymphatics: No axilla or inguinal lymphadenopathy Assessment And Plan - Plan Acute resp failure with hypoxia: CTA chest shows patchy basal and peripheral predominant airspace opacities. CXR shows multifocal pna. Will f/u repeat CXR. Will continue levaquin. Pulm is following. Leukocytosis: WBC is 31.6<- 15.9. Will continue levaquin. Will check for HIV. 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 Leukocytosis is likely due to steroid. Metabolic acidosis: Will continue gentle hydration. Hypokalemia: K is 3.5<- 2.9. Will replete and monitor. Mag is 2.6 Questionable melena: Pt reports black stool. Will r/o GI bleed with FOBT. Hgb is 12.2 GI ppx: protonix DVT prophylaxis: heparin Discharge Plan: Home when stable
--- NOTE | 2024-01-07 12:38 | RAD REPORT ---
EXAM DESCRIPTION: RADChest Single View01/07/2024 8:50 am CLINICAL HISTORY: Pneumonia COMPARISON: Chest Single View dated 01/06/2024; Chest Single View dated 01/05/2024; Chest Single View dated 01/02/2024; Chest Pa And Lat (2 Views) dated 06/10/2023; Chest For Pe Angio dated 01/05/2024 TECHNIQUE: Portable AP view of the chest. FINDINGS: Patchy bilateral airspace opacities more pronounced on the left, stable compared to the pr ior CT and chest radiograph allowing for differences in technique. No pneumothorax or effusion. The cardiomediastinal contours are unremarkable. IMPRESSION: Stable patchy bilateral airspace opacities as above.
[2024-01-07] MEDS ORDERED: GUAIFENESIN/CODEINE 5ML UCUP ONE ×3 (13:51→21:35)
--- NOTE | 2024-01-07 16:38 | P.PN ---
Subjective Date of Service: 01/07/24 Chief Complaint: Acute hypoxic respiratory failure No changein patient conition continues to remian hypxic/ on Precidex drip Review of Systems is unable to be obtained Physical Examination - Vital Signs Temperature: 97.6 F Blood Pressure: 134/74 Pulse: 63 Respirations: 29 Pulse Ox (%): 95 - Physical Exam General: Unresponsive Respiratory: Crackles/rales, Friction rub Cardiovascular: Normal pulses, Regular rate/rhythm Assessment And Plan - Current Problems (Diagnosis) (1) Pneumonia Current Visit: No Status: Acute Plan: Resp falure bilateral infiltratesWBC has increased may be from Steroids /on 60% Fio2/ Vaoptherem. CXRy reviewed. Reduce solumed doseEcho ordered. PCt elevated Qualifiers: Pneumonia type: due to unspecified organism Laterality: bilateral
[2024-01-07] MEDS ORDERED: FUROSEMIDE 20 MG/ 2ML VIAL ONE (17:08)
[2024-01-07] MEDS: FUROSEMIDE 20 MG/ 2ML VIAL IV ONE (17:19)
[2024-01-07 17:29] LABS: SARS-CoV-2 Antigen CONTROL BLUE LINE VIS/BG OK; SARS-CoV-2 Antigen Rapid Res Negative (Negative)
[2024-01-07] MEDS: GUAIFENESIN/CODEINE 5ML UCUP PO PRN (21:38)
[2024-01-07] MEDS: METHYLPREDNISOLONE 40 MG INJ IV SCH (21:38)
[2024-01-08 04:55] LABS: Absolute Basophils 0.1 K/uL (0-0.5); Absolute Eosinophils 0.1 K/uL (0-0.5); Absolute Lymphocytes (CBC) 0.3 K/uL (0.7-4.9); Absolute Monocytes 0.5 K/uL (0.1-1.3); Absolute Neutrophil 22.7 K/uL (1.8-8.0); Basophils % 0.2 % (0-1.3); Eosinophils % 0.5 % (0-4.4); Hematocrit 36.4 % (39.6-49.0); Hemoglobin 12.4 g/dL (13.6-17.9); Lymphocytes % 1.1 % (15.3-44.8); MCH 32.4 pg (27.0-35.0); MCHC 34.1 g/dL (32.0-36.0); MCV 95.1 fL (80-100); MPV 7.8 fL (7.6-11.3); Monocytes % 2.3 % (3.3-12.3); Neutrophils % 95.9 % (41.7-73.7); Platelets 347 thou/uL (152-406); RBC Red Blood Cell Count 3.83 M/uL (4.33-5.43); Red Cell Distribution Width 13.4 % (12.1-15.2)
[2024-01-08 05:04] LABS: Anion Gap 7.6 mEq/L (5.0-15.0); Potassium 3.6 mEq/L (3.5-5.1)
[2024-01-08 06:11] LABS: Magnesium 2.4 mg/dL (1.6-2.4); Phosphorus 3.7 mg/dL (2.5-4.9)
[2024-01-08] MEDS ORDERED: ALBUTEROL 2.5 MG/3 ML NEB SOL ONE ×3 (08:04→19:52)
--- NOTE | 2024-01-08 08:35 | RAD REPORT ---
[facility] DES[facility] 5[facility] am CLINICAL HISTORY: Pneumonia COMPARISON: Chest Single View dated 01/07/2024; Chest Single View dated 01/06/2024; Chest Single View dated 01/05/2024; Chest Single View dated 4Chest Single View dated 01/07/2024; Chest Single Vie w dated 01/06/2024; Chest Single View dated 01/05/2024; Chest Single View dated 01/02/2024 TECHNIQUE: Portable AP view of the chest. FINDINGS: Partial improvement of bilateral patchy airspace opacities worse on the left with partial improvement of central interstitial prominence as well. No pneumothorax or effusion. The cardiomedia stinal contours are unremarkable. IMPRESSION: Improving bilateral patchy opacities which may reflect multifocal pneumonia or pulmonary edema.
--- NOTE | 2024-01-08 08:51 | P.PN ---
Subjective Date of Service: 01/08/24 Chief Complaint: Acute hypoxic respiratory failure Pt is resting comfortably in bed. He is using HFNC 30 L with 50% fio2. Currently on precededx for anxiety. Leukocytosis is due to steroid. No other complaints. Review of Systems General: Weakness Eyes: Unremarkable ENT: Unremarkable Respiratory: SOB with Excertion Cardiovascular: Unremarkable Gastrointestinal: Unremarkable Genitourinary: Unremarkable Musculoskeletal: Unremarkable Integumentary: Unremarkable Neurological: Unremarkable Lymphatics: Unremarkable Physical Examination - Vital Signs Temperature: 98.0 F Blood Pressure: 122/79 Pulse: 49 Respirations: 29 Pulse Ox (%): 94 - Physical Exam General: Alert, In no apparent distress, Oriented x3 HEENT: Atraumatic, Normocephalic, PERRLA Neck: Supple, 2+ carotid pulse no bruit Respiratory: Normal air movement, Crackles/rales Cardiovascular: No edema, Normal pulses, Regular rate/rhythm, Normal S1 S2 Capillary refill: <2 Seconds Gastrointestinal: Normal bowel sounds, Soft and benign, Non-distended Musculoskeletal: No clubbing, No swelling Integumentary: No rashes, No breakdown Neurological: Normal gait, Normal speech, Normal strength at 5/5 x4 extr Lymphatics: No axilla or inguinal lymphadenopathy Assessment And Plan - Plan Acute resp failure with hypoxia: CTA chest shows patchy basal and peripheral predominant airspace opacities. CXR shows multifocal pna. Will f/u repeat CXR. Will continue levaquin and reduced solumdrol. Pulm is following. Continue HFNC 30 L with fio2 50% Leukocytosis: WBC is 23.7<- 31.6<- 15.9. Will continue levaquin. Will f/u HIV test. Consulted morning show host. Leukocytosis is likely due to steroid. Metabolic acidosis: Will continue gentle hydration. Hypokalemia: K is 3.6<- 3.5<- 2.9. Will replete and monitor. Mag is 2.6 Questionable melena: ruled out. Pt had normal colored stool. Hgb is 12.4<- 12.2 GI ppx: protonix DVT prophylaxis: heparin Discharge Plan: Home when stable
[2024-01-08] MEDS ORDERED: PANTOPRAZOLE 40 MG INJ ONE (10:13)
[2024-01-08] MEDS ORDERED: METHYLPREDNISOLONE 40 MG INJ ONE (10:13)
[2024-01-08] MEDS ORDERED: POTASSIUM CL SA 10 MEQ TAB PO ONE (10:13)
[2024-01-08] MEDS ORDERED: ENOXAPARIN 40 MG/0.4 ML SQ ONE (10:14)
[2024-01-08] MEDS: POTASSIUM CL SA 10 MEQ TAB PO ONE (10:15)
--- NOTE | 2024-01-08 12:07 | P.PN ---
Subjective Date of Service: 01/08/24 Chief Complaint: Acute hypoxic respiratory failure Patient is improving still on a Precedex drip continues to remain agitated patient patient is improving Review of Systems General: Weakness Respiratory: Shortness of Breath Physical Examination - Vital Signs Temperature: 98.0 F Blood Pressure: 122/79 Pulse: 49 Respirations: 29 Pulse Ox (%): 94 - Physical Exam General: Alert, Oriented x2, Cooperative Respiratory: Crackles/rales Cardiovascular: No edema, Regular rate/rhythm, Normal S1 S2 Assessment And Plan - Current Problems (Diagnosis) (1) Pneumonia Current Visit: No Status: Acute Plan: Patient admitted with respiratory failure secondary to pneumonia since viral and atypical pneumonia screen was all negative chemistries reviewed white count is declining blood pressure oxygenation satisfactory we will discontinue steroids chest x-ray shows an improvement as per radiology report repeat another dose of Lasix Qualifiers: Pneumonia type: due to unspecified organism Laterality: bilateral
[2024-01-08] MEDS ORDERED: FUROSEMIDE 20 MG/ 2ML VIAL ONE (12:38)
[2024-01-08] MEDS: FUROSEMIDE 20 MG/ 2ML VIAL IV ONE (12:45)
[2024-01-08] MEDS ORDERED: GUAIFENESIN/CODEINE 5ML UCUP ONE (22:55)
[2024-01-09] MEDS ORDERED: ALBUTEROL 2.5 MG/3 ML NEB SOL ONE ×2 (01:44→08:04)
[2024-01-09 05:00] LABS: Absolute Eosinophils 0.4 K/uL (0-0.5); Absolute Lymphocytes (CBC) 0.7 K/uL (0.7-4.9); Absolute Monocytes 0.6 K/uL (0.1-1.3); Absolute Neutrophil 13.8 K/uL (1.8-8.0); Basophils % 0.2 % (0-1.3); Eosinophils % 2.9 % (0-4.4); Hematocrit 36.8 % (39.6-49.0); Hemoglobin 12.6 g/dL (13.6-17.9); Lymphocytes % 4.5 % (15.3-44.8); MCH 32.3 pg (27.0-35.0); MCHC 34.2 g/dL (32.0-36.0); MCV 94.5 fL (80-100); MPV 7.5 fL (7.6-11.3); Monocytes % 3.6 % (3.3-12.3); Neutrophils % 88.8 % (41.7-73.7); Platelets 353 thou/uL (152-406); Red Cell Distribution Width 13.2 % (12.1-15.2)
[2024-01-09 05:25] LABS: Anion Gap 9.3 mEq/L (5.0-15.0); Magnesium 2.4 mg/dL (1.6-2.4); Phosphorus 1.9 mg/dL (2.5-4.9); Potassium 3.3 mEq/L (3.5-5.1)
--- NOTE | 2024-01-09 06:57 | RAD REPORT ---
EXAM DESCRIPTION: RAD - Chest Single View - 01/09/2024 5:11 am CLINICAL HISTORY: pneumonia COMPARISON: Chest Single View dated 01/08/2024; Chest Single View dated 01/07/2024; Chest Single View dated 01/06/2024; Chest Single View dated 01/05/2024; Chest For Pe Angio dated 01/05/2024 FINDINGS: Lines: None. Lungs: Continued mild improvement in bilateral patchy airspace disease compared with yesterday. The d egree of consolidation in particular in the left lung as improved. Pleural: No significant pleural effusions or pneumothorax. Cardiac: The heart size is within normal limits. Mediastinum: Within normal limits. Bones: No acute fractures. Other: None IMPRESSION: Continued mild improvement in bilateral airspace disease.
--- NOTE | 2024-01-09 07:03 | ECHO ---
HEIGHT: 5 ft 6 in WEIGHT: 128 lb 0 oz DATE OF STUDY: 01/08/[address]: Gerson Medina MD 2-DIMENSIONAL: YES M.MODE: YES DOPPLER: YES COLOR FLOW: YES TDS: PORTABLE: YES DEFINITY: BUBBLE STUDY: DIAGNOSIS: RESPIRATORY FAILURE CARDIAC HISTORY: CATHERIZATION: SURGERY: PROSTHETIC VALVE: PACEMAKER: MEASUREMENTS (cm) DIASTOLIC (NORMALS) SYSTOLIC (NORMALS) IVSd 0.8 (0.6-1.2) LA Diam 3.4 (1.9-4.0) LVEF 66% LVIDd 4.7 (3.5-5.7) LVIDs 3.0 (2.0-3.5) %FS 36% LVPWd 0.9 (0.6-1.2) Ao Diam 2.6 (2.0-3.7) 2 DIMENSIONAL ASSESSMENT: RIGHT ATRIUM: NORMAL LEFT ATRIUM: NORMAL RIGHT VENTRICLE: NORMAL LEFT VENTRICLE: NORMAL TRICUSPID VALVE: NORMAL MITRAL VALVE: NORMAL PULMONIC VALVE: NORMAL AORTIC VALVE: NORMAL PERICARDIAL EFFUSION: NONE AORTIC ROOT: NORMAL LEFT VENTRICULAR WALL MOTION: NORMAL DOPPLER/COLOR FLOW: NORMAL COMMENTS: 1. NORMAL LEFT VENTRICULAR SYSTOLIC FUNCTION, EJECTION FRACTION 55-60%, NORMAL WALL MOTION 2. NORMAL DIASTOLIC FUNCTION 3. INFERIOR VENA CAVA, ECHOGENIC WALL CAN BE SEEN INSIDE INFERIOR VENA CAVA WHICH MIGHT REFLECT A NON OBSTRUCTIVE THROMBUS TECHNOLOGIST: ELLA NEWMAN
[2024-01-09] MEDS ORDERED: ENOXAPARIN 40 MG/0.4 ML SQ ONE (08:13)
[2024-01-09] MEDS ORDERED: POTASS/SODIUM PHOSPHATE 1 PKT POWD.PACK ONE ×2 (08:13→13:06)
[2024-01-09] MEDS ORDERED: POTASSIUM CL SA 10 MEQ TAB PO ONE ×2 (08:13→13:07)
[2024-01-09] MEDS ORDERED: ALBUTEROL 2.5 MG/3 ML NEB SOL NEB PRN (08:44)
[2024-01-09] MEDS: POTASSIUM CL SA 10 MEQ TAB PO SCH (09:27)
[2024-01-09] MEDS: POTASS/SODIUM PHOSPHATE 1 PKT POWD.PACK PO SCH (09:27)
--- NOTE | 2024-01-09 09:52 | P.PN ---
Subjective Date of Service: 01/09/24 Chief Complaint: Acute hypoxic respiratory failure Pt is resting comfortably in bed. He is using HFNC 25 L with 35% fio2. Currently on precededx for anxiety. Leukocytosis is improving. No other complaints. Review of Systems General: Weakness Eyes: Unremarkable ENT: Unremarkable Respiratory: SOB with Excertion Cardiovascular: Unremarkable Gastrointestinal: Unremarkable Genitourinary: Unremarkable Musculoskeletal: Unremarkable Integumentary: Unremarkable Neurological: Unremarkable Lymphatics: Unremarkable Physical Examination - Vital Signs Temperature: 98.2 F Blood Pressure: 117/81 Pulse: 79 Respirations: 39 Pulse Ox (%): 95 - Physical Exam General: Alert, In no apparent distress, Oriented x3 HEENT: Atraumatic, Normocephalic Neck: Supple, 2+ carotid pulse no bruit Respiratory: Normal air movement, Crackles/rales Cardiovascular: No edema, Normal pulses, Regular rate/rhythm, Normal S1 S2 Capillary refill: <2 Seconds Gastrointestinal: Normal bowel sounds, Soft and benign, Non-distended Musculoskeletal: No clubbing, No swelling Integumentary: No rashes, No breakdown Neurological: Normal gait, Normal speech, Normal strength at 5/5 x4 extr Lymphatics: No axilla or inguinal lymphadenopathy Assessment And Plan - Plan Acute resp failure with hypoxia: CTA chest shows patchy basal and peripheral predominant airspace opacities. CXR shows multifocal pna. Repeat CXR shows improvement of multifocal pneumonia. Will continue levaquin. Off solumedrol. Pulm is following. Continue HFNC 25 L with fio2 35% Leukocytosis: WBC is 15.5<- 23.7<- 31.6<- 15.9. Will continue levaquin. Will f/u HIV test. Consulted monitor worker. Leukocytosis is likely due to steroid. Off steroid. Elevated BNP: BNP is 623. Echo shows EF 55 - 60%. Metabolic acidosis: Will continue gentle hydration. Hypokalemia: K is 3.3<- 3.6<- 3.5<- 2.9. Will replete and monitor. Mag is 2.6 Questionable melena: ruled out. Pt had normal colored stool. Hgb is 12.6<- 12.4<- 12.2 GI ppx: protonix DVT prophylaxis: heparin Discharge Plan: Home when stable
--- NOTE | 2024-01-09 12:47 | P.PN ---
Subjective Date of Service: 01/09/24 Chief Complaint: Acute hypoxic respiratory failure Patient continues to remain agitated and is requiring the precidex drip oxygen requirements are declining and so is the white count still continues to remain agitated Review of Systems General: Weakness Respiratory: Shortness of Breath Physical Examination - Vital Signs Temperature: 98.2 F Blood Pressure: 114/69 Pulse: 72 Respirations: 24 Pulse Ox (%): 97 - Physical Exam General: Alert, Oriented x2, Mild distress Respiratory: Clear to auscultation bilaterally, Diminished Cardiovascular: No edema, Regular rate/rhythm, Normal S1 S2 Assessment And Plan - Current Problems (Diagnosis) (1) Pneumonia Current Visit: No Status: Acute Plan: Patient is 23 years of age but it was severe bilateral community acquired pneumonia and is currently improving white count is declining steroids have been discontinued chest x-ray improving plan to titrate his oxygen down viral and atypical screen was all negative labs reviewed Qualifiers: Pneumonia type: due to unspecified organism Laterality: bilateral
[2024-01-09] MEDS: POTASSIUM CL SA 10 MEQ TAB PO ONE ×2 (13:08→20:01)
[2024-01-09] MEDS: QUETIAPINE 25 MG TAB PO SCH (15:55)
[2024-01-09] MEDS ORDERED: ONDANSETRON 4 MG/2 ML VIAL ONE (16:15)
[2024-01-09] MEDS: ONDANSETRON 4 MG/2 ML VIAL IV PRN (16:18)
[2024-01-09 18:20] LABS: Sqamous Epithelial None Seen /HPF (None Seen); Urine Bacteria None Seen /HPF (<20); Urine Culture Reflex Order NOT NEEDED; Urine Microscopic Reflex YN ORDER UMIC; Urine Mucus Slight /HPF (None Seen); Urine RBC <5 /HPF (None Seen); Urine WBC <5 /HPF (<5)
[2024-01-09 18:26] LABS: Urine Color Light-Yellow (Yellow)
[2024-01-09 18:27] LABS: Specific Gravity 1.025 (1.005-1.030); Urine Bilirubin Negative (Negative); Urine Glucose Negative (Negative); Urine Ketones Negative (Negative)
[2024-01-09 18:28] LABS: Urine Blood Negative (Negative); Urine Nitrite Negative (Negative); Urine Protein 1+ (Negative); Urine Urobilinogen Normal (Normal)
[2024-01-09 18:29] LABS: Urine Clarity Turbid (Clear)
[2024-01-09] MEDS ORDERED: LOPERAMIDE HCL 2 MG CAPSULE ONE (22:01)
[2024-01-09] MEDS ORDERED: ACETAMINOPHEN 500 MG TAB ONE (22:02)
[2024-01-09] MEDS: LOPERAMIDE HCL 2 MG CAPSULE PO PRN (22:03)
[2024-01-10 05:00] LABS: Absolute Eosinophils 0.9 K/uL (0-0.5); Absolute Lymphocytes (CBC) 0.7 K/uL (0.7-4.9); Absolute Monocytes 0.3 K/uL (0.1-1.3); Eosinophils % 6.2 % (0-4.4); Hematocrit 37.1 % (39.6-49.0); Hemoglobin 12.5 g/dL (13.6-17.9); Lymphocytes % 4.8 % (15.3-44.8); MCH 32.4 pg (27.0-35.0); MCHC 33.8 g/dL (32.0-36.0); MCV 95.8 fL (80-100); MPV 7.7 fL (7.6-11.3); Monocytes % 2.5 % (3.3-12.3); Neutrophils % 86.5 % (41.7-73.7); Platelets 403 thou/uL (152-406); RBC Red Blood Cell Count 3.87 M/uL (4.33-5.43); Red Cell Distribution Width 13.5 % (12.1-15.2)
[2024-01-10 05:25] LABS: Anion Gap 9.5 mEq/L (5.0-15.0); Potassium 3.5 mEq/L (3.5-5.1)
--- NOTE | 2024-01-10 07:51 | RAD REPORT ---
EXAM DESCRIPTION: [facility] Single View01/10/2024 5:42 am CLINICAL HISTORY: Chest pain COMPARISON: January 09, 2024 FINDINGS: No significant change in the bilateral pulmonary opacities Heart is normal size IMPRESSION: Stable bilateral pulmonary opacities
[2024-01-10] MEDS ORDERED: POTASSIUM CL SA 10 MEQ TAB PO ONE ×2 (09:21→09:47)
[2024-01-10] MEDS: POTASSIUM CL SA 10 MEQ TAB PO ONE (09:43)
--- NOTE | 2024-01-10 09:48 | P.PN ---
Subjective Date of Service: 01/10/24 Chief Complaint: Acute hypoxic respiratory failure Pt is resting comfortably in bed. He is using HFNC 20 L with 30% fio2. Pt is feeling better. Leukocytosis is improving. Will transfer to the medicine floor. No other complaints. Review of Systems General: Unremarkable Eyes: Unremarkable Respiratory: SOB with Excertion Cardiovascular: Unremarkable Gastrointestinal: Unremarkable Genitourinary: Unremarkable Musculoskeletal: Unremarkable Integumentary: Unremarkable Neurological: Unremarkable Lymphatics: Unremarkable Physical Examination - Vital Signs Temperature: 97.7 F Blood Pressure: 109/67 Pulse: 73 Respirations: 14 Pulse Ox (%): 98 - Physical Exam General: Alert, In no apparent distress, Oriented x3 HEENT: Atraumatic, Normocephalic, PERRLA Neck: Supple, 2+ carotid pulse no bruit Respiratory: Clear to auscultation bilaterally, Normal air movement Cardiovascular: No edema, Normal pulses, Regular rate/rhythm, Normal S1 S2 Capillary refill: <2 Seconds Gastrointestinal: Normal bowel sounds, Soft and benign, Non-distended Musculoskeletal: No clubbing, No swelling Integumentary: No rashes, No breakdown, No significant lesion Neurological: Normal gait, Normal speech, Normal strength at 5/5 x4 extr Lymphatics: No axilla or inguinal lymphadenopathy Assessment And Plan - Plan Acute resp failure with hypoxia: CTA chest shows patchy basal and peripheral predominant airspace opacities. CXR shows multifocal pna. Repeat CXR shows improvement of multifocal pneumonia. Will continue levaquin. Off solumedrol. Pulm is following. Continue HFNC 20 L with fio2 30%. Will switch to [facility] and transfer pt to the floor. Leukocytosis: WBC is 13.7<- 15.5<- 23.7<- 31.6<- 15.9. Will continue levaquin. Will f/u HIV test. Consulted genetics physician. Leukocytosis is likely due to steroid. Off steroid. Elevated BNP: BNP is 623. Echo shows EF 55 - 60%. Metabolic acidosis: Will continue gentle hydration. Hypokalemia: K is 3.5<- 3.3<- 3.6<- 3.5<- 2.9. Will replete and monitor. Mag is 2.6 Questionable melena: ruled out. Pt had normal colored stool. Hgb is 12.5<- 12.6<- 12.4<- 12.2 GI ppx: protonix DVT prophylaxis: heparin Discharge Plan: Home when stable
--- NOTE | 2024-01-10 12:40 | P.PN ---
Subjective Date of Service: 01/10/24 Chief Complaint: Bilateral pneumonia Patient is improving education has reduced still is hypoxic requiring oxygen last time I saw him in the morning he was requiring 35% FiO2 Review of Systems Unremarkable Physical Examination - Vital Signs Temperature: 97.7 F Blood Pressure: 106/59 Pulse: 88 Respirations: 27 Pulse Ox (%): 100 - Physical Exam General: Alert, Oriented x3 Neck: Supple Respiratory: Clear to auscultation bilaterally Cardiovascular: No edema, Normal pulses, Regular rate/rhythm Assessment And Plan - Current Problems (Diagnosis) (1) Pneumonia Current Visit: No Status: Acute Plan: Patient admitted with severe bilateral pneumonia is clinically improving white count is declining plan to titrate him titrate him off high flow oxygen and change to nasal cannula. Transfer to the floor and start on PO levofloxacin. Apparently recent pulse ox is 97% on room air/Discharge planningLabs reviewed white count is declined significantly Qualifiers: Pneumonia type: due to unspecified organism Laterality: bilateral
[2024-01-10] MEDS ORDERED: ALBUTEROL 2.5 MG/3 ML NEB SOL NEB PRN (12:44)
[2024-01-10] MEDS ORDERED: levoFLOXacin 750 MG TAB ONE (16:44)
[2024-01-10] MEDS: ASPIRIN 325 MG TAB PO ONE (16:49)
[2024-01-10] MEDS: levoFLOXacin 250 MG TAB PO SCH (16:51)
[2024-01-10] MEDS ORDERED: levoFLOXacin 250 MG TAB ONE (16:51)
[2024-01-10] MEDS: NA CHLORIDE 0.9% 250 ML IV ONE (18:30)
[2024-01-10] MEDS ORDERED: NA CHLORIDE 0.9% 250 ML ONE (18:35)
[2024-01-10 21:09] VITALS: O2SAT 96
[2024-01-11 05:01] LABS: Absolute Eosinophils 0.4 K/uL (0-0.5); Absolute Lymphocytes (CBC) 0.6 K/uL (0.7-4.9); Absolute Monocytes 0.4 K/uL (0.1-1.3); Absolute Neutrophil 12.3 K/uL (1.8-8.0); Basophils % 0.1 % (0-1.3); Eosinophils % 2.9 % (0-4.4); Hematocrit 38.9 % (39.6-49.0); Hemoglobin 13.1 g/dL (13.6-17.9); Lymphocytes % 4.5 % (15.3-44.8); MCH 31.9 pg (27.0-35.0); MCHC 33.7 g/dL (32.0-36.0); MCV 94.9 fL (80-100); MPV 7.4 fL (7.6-11.3); Monocytes % 3.1 % (3.3-12.3); Neutrophils % 89.4 % (41.7-73.7); Platelets 433 thou/uL (152-406); Red Cell Distribution Width 13.3 % (12.1-15.2)
[2024-01-11 05:20] LABS: Anion Gap 8.8 mEq/L (5.0-15.0); BUN Blood Urea Nitrogen 10 mg/dL (7-18); Bicarbonate 27 mEq/L (21-32); Glomerular Filtration Rate 135 ml/min (=/>90); Glucose Level 105 mg/dL (74-106); Potassium 3.8 mEq/L (3.5-5.1); Sodium Level 136 mEq/L (136-145)
[2024-01-11] MEDS ORDERED: ONDANSETRON 4 MG/2 ML VIAL ONE (05:21)
[2024-01-11 05:25] LABS: Troponin High Sensitivity < 3.0 pg/mL (<58.9)
[2024-01-11 06:09] VITALS: BMI 24.3
[2024-01-11] MEDS ORDERED: MORPHINE 2 MG/ML SYR ONE (06:31)
[2024-01-11] MEDS: MORPHINE 2 MG/ML SYR IV ONE (06:37)
[2024-01-11] MEDS: LEVALBUTEROL 1.25 MG/3 ML NEB NEB PRN (08:02)
[2024-01-11 08:40] LABS: Blood Morphology Comment NOT SEEN (NOT SEEN); Differential Total Cells Count 100; Eosinophils 5 % (0-3); Lymphocytes 9 % (15-42); Metamyelocytes 2 % (0-0); Monocytes 2 % (0-10); Myelocytes 3 % (0-0); Platelet Estimate ADEQ; Segmented Neutrophils 79 % (40-80); Toxic Granulation PRESENT; White Blood Cell Scan DIFF (OK)
[2024-01-11] MEDS: MORPHINE 2 MG/ML SYR ONE (08:56)
[2024-01-11] MEDS ORDERED: predniSONE 20 MG TAB ONE ×2 (09:01→19:51)
[2024-01-11] MEDS: predniSONE 20 MG TAB PO SCH (09:24)
[2024-01-11] MEDS: MORPHINE 2 MG/ML SYR IV PRN (09:26)
--- NOTE | 2024-01-11 10:45 | P.PN ---
Subjective Date of Service: 01/11/24 Chief Complaint: Bilateral pneumonia Pt is resting comfortably in bed. He is oxygenating well on room air. Pt complains of chest pain. It is likely pleuritic. troponin and EKG are unremarkable. Will continue prn morphine. Leukocytosis is improving. Will transfer to the medicine floor. No other complaints. Review of Systems General: Unremarkable Eyes: Unremarkable ENT: Unremarkable Respiratory: Unremarkable Cardiovascular: Chest Pain Gastrointestinal: Unremarkable Genitourinary: Unremarkable Musculoskeletal: Unremarkable Integumentary: Unremarkable Neurological: Unremarkable Lymphatics: Unremarkable Physical Examination - Vital Signs Temperature: 97.2 F Blood Pressure: 115/63 Pulse: 114 Respirations: 21 Pulse Ox (%): 96 - Physical Exam General: Alert, In no apparent distress, Oriented x3 HEENT: Atraumatic, Normocephalic, PERRLA Neck: Supple, 2+ carotid pulse no bruit Respiratory: Clear to auscultation bilaterally, Normal air movement Cardiovascular: No edema, Normal pulses, Regular rate/rhythm, Normal S1 S2, Other (chest pain) Capillary refill: <2 Seconds Gastrointestinal: Normal bowel sounds, Soft and benign, Non-distended Musculoskeletal: No clubbing, No swelling Integumentary: No rashes, No breakdown Neurological: Normal gait, Normal speech, Normal strength at 5/5 x4 extr, Sensation intact Lymphatics: No axilla or inguinal lymphadenopathy - Studies Microbiology Data (last 24 hrs): 01/05/24 15:45 Blood - Blood Aerobic Blood Culture - Final No growth in 5 days. 01/05/24 15:45 Blood - Blood Anaerobic Blood Culture - Final No growth in 5 days. 01/05/24 16:00 Blood - Blood Aerobic Blood Culture - Final No growth in 5 days. 01/05/24 16:00 Blood - Blood Anaerobic Blood Culture - Final No growth in 5 days. Assessment And Plan - Plan Acute resp failure with hypoxia: CTA chest shows patchy basal and peripheral predominant airspace opacities. CXR shows multifocal pna. Repeat CXR shows improvement of multifocal pneumonia. Will continue levaquin. Off solumedrol. Pulm is following. Off HFNC. Pt is oxygenating well on room air. Will transfer pt to the floor. Leukocytosis: WBC is 13.7<- 15.5<- 23.7<- 31.6<- 15.9. Will continue levaquin. HIV test is non-reactive. COVID is negative. Consulted dean of graduate studies. Leukocytosis is likely due to steroid. Off steroid. Elevated BNP: BNP is 623. Echo shows EF 55 - 60%. Metabolic acidosis: Will continue gentle hydration. Hypokalemia: K is 3.8<- 3.5<- 3.3<- 3.6<- 3.5<- 2.9. Will replete and monitor. Mag is 2.6 Questionable melena: ruled out. Pt had normal colored stool. Hgb is 13.2 <- 12.5<- 12.6<- 12.4<- 12.2 GI ppx: protonix DVT prophylaxis: heparin Discharge Plan: Home when stable
[2024-01-11 20:36] VITALS: BP 114/67; TEMP 98.3
--- NOTE | 2024-01-12 08:40 | P.DS ---
Admission Date: 01/05/24 Discharge Date: 01/12/24 Disposition: AMA-LEFT AGAINST MEDICAL ADVIC Discharge Condition: GOOD Reason for Admission: Bilateral pneumonia Brief History of Present Illness: Patient is a 23-year-old gentleman with a history of asthma and a recent admission for multifocal pneumonia about 6 months ago who presented to the emergency room with cough and congestion. Patient has been in the emergency room last week, and at that time his workup was unremarkable so he was discharged home. He continued to feel poorly so he ended up going to [facility]. At that time, he had imaging studies in the emergency room which revealed a pneumonic infiltrate. Patient was given antibiotics. However, he was unable to take many of the antibiotics that he was having persistent nausea and vomiting. Patient also been having diarrhea for the last 3 to 4 days. He is lost quite a bit of weight and he was becoming more tachypneic so his mother who works in [employer] here at [employer] brought him to our ER once again. In the emergency room, patient was tachycardic and tachypneic. He was given nebs, steroids, and antibiotics. Patient was also given antiemetics and IV fluids. Patient had chest x-ray which showed multifocal pneumonia. CT imaging revealed diffuse infiltrates. Patient also has a lymphopenia with lymphocyte counts roughly about 1000 for the last few months. Patient also appears to have a coagulopathy with his PT and PTT both elevated. Patient also with a metabolic acidosis. Patient will be admitted to the intensive care unit for IV fluids and IV steroids. Will need to workup the etiology of his lymphopenia. Patient had an HIV test about 6 to 7 months ago which was negative. However he has a significant decrease in his lymphocyte count which is most likely affecting his ability to get better from his clinical condition. Will get a pulmonary consultation and we may need to get hematology on board. I repeat his HIV test, and with his lymphopenia we need to keep in mind that patient may have an opportunistic infection. We will get patient admitted to the ICU. Hospital Course: Patient is a 23-year-old gentleman with past medical history of asthma and a recent admission for multifocal pneumonia about 6 months ago who presented to the emergency room with cough and congestion. Patient was in the emergency room last week, and at that time his workup was unremarkable so he was discharged home. He continued to feel poorly so he ended up going to [facility]. At that time, he had imaging studies in the emergency room which revealed a pneumonic infiltrate. Patient was given antibiotics. However, he was unable to take many of the antibiotics due to persistent nausea and vomiting. Patient also had diarrhea for 3 to 4 days. His mom brought him to the ER for further evaluation given significant weight loss. In the emergency room, patient was tachycardic and tachypneic. He was given nebs, steroids, IVF, prn antiemetic, and antibiotics. Chest x-ray showed multifocal pneumonia. CT imaging revealed diffuse infiltrates. Patient also has a lymphopenia with lymphocyte counts roughly about 1000 for the last few months. Patient was admitted in the ICU for acute resp failure due to multifocal pneumonia and metabolic acidosis. He was treated for the medical problems listed below: Acute resp failure with hypoxia: CTA chest shows patchy basal and peripheral predominant airspace opacities. CXR shows multifocal pna. Repeat CXR shows improvement of multifocal pneumonia. Will continue levaquin. Off solumedrol. Pulm is following. Off HFNC. Pt is oxygenating well on room air. Will transfer pt to the floor. Leukocytosis: WBC is 13.7<- 15.5<- 23.7<- 31.6<- 15.9. Will continue levaquin. HIV test is non-reactive. COVID is negative. Consulted blind cleaner. Leukocytosis is likely due to steroid. Off steroid. Elevated BNP: BNP is 623. Echo shows EF 55 - 60%. Metabolic acidosis: Will continue gentle hydration. Hypokalemia: K is 3.8<- 3.5<- 3.3<- 3.6<- 3.5<- 2.9. Will replete and monitor. Mag is 2.6 Questionable melena: ruled out. Pt had normal colored stool. Hgb is 13.2 <- 12.5<- 12.6<- 12.4<- 12.2 GI ppx: protonix DVT prophylaxis: heparin Discharge Plan: Home when stable Pt left AMA on 01/12/24. We sent a prescription of levaquin 750mg po daily for 1 week to his pharmacy. Vital Signs/Physical Exam: Temp Pulse Resp BP Pulse Ox 98.3 F 90 23 H 114/67 97 01/11/24 20:00 01/11/24 20:00 01/11/24 20:00 01/11/24 20:00 01/11/24 20:00 Laboratory Data at Discharge: WBC 13.70 thou/uL (4.3-10.9) H 01/11/24 04:42 Hgb 13.1 g/dL (13.6-17.9) L 01/11/24 04:42 Hct 38.9 % (39.6-49.0) L 01/11/24 04:42 Plt Count 433 thou/uL (152-406) H 01/11/24 04:42 PT 17.3 SECONDS (9.5-12.5) H 01/05/24 16:00 INR 1.59 01/05/24 16:00 APTT 38.6 SECONDS (24.3-36.9) H 01/05/24 16:00 Sodium 136 mEq/L (136-145) 01/11/24 04:42 Potassium 3.8 mEq/L (3.5-5.1) 01/11/24 04:42 BUN 10 mg/dL (7-18) 01/11/24 04:42 Creatinine 0.65 mg/dL (0.70-1.30) L 01/11/24 04:42 Glucose 105 mg/dL (74-106) 01/11/24 04:42 Phosphorus Cancelled 01/09/24 06:00 Magnesium Cancelled 01/09/24 06:00 Total Bilirubin 0.3 mg/dL (0.2-1.0) 01/06/24 07:46 AST 29 U/L (15-37) 01/06/24 07:46 ALT 12 U/L (16-61) L 01/06/24 07:46 Alkaline Phosphatase 65 U/L (45-117) 01/06/24 07:46 Triglycerides 61 mg/dL (<150) 01/06/24 07:46 Cholesterol 84 mg/dL (<200) 01/06/24 07:46 HDL Cholesterol 24 mg/dL (40-60) L 01/06/24 07:46 Cholesterol/HDL Ratio 3.50 01/06/24 07:46 Home Medications: predniSONE [Prednisone*] 20 mg PO BID #14 tab 05/30/23 Famotidine [Pepcid*] 20 mg PO Q12H 01/05/24 Metoprolol Tartrate 25 mg PO BID 01/05/24 levoFLOXacin [Levaquin] 750 mg PO DAILY 7 Days #7 tab 01/12/24 New Medications: levoFLOXacin [Levaquin] 750 mg PO DAILY 7 Days #7 tab Followup: Olayinka Pena DO [Primary Care Provider] -
--- NOTE | 2024-01-13 14:24 | EKG ---
Test Date: 2024-01-10 Test Time: 16:55:02 Skilled Laborer: MG MEASUREMENT RESULTS: Intervals: Rate: 100 IA: 112 QRSD: 78 QT: 318 QTc: 410 [place]: P: 32 IA: 112 QRS: 59 T: 52 INTERPRETIVE STATEMENTS: Normal sinus rhythm Nonspecific ST abnormality Abnormal ECG Compared to ECG 01/10/2024 16:23:26 No significant changes Electronically Signed On 01-13-24 14:16:03 CDT by Maynor Franklin
--- NOTE | 2024-01-13 14:25 | EKG ---
Test Date: 2024-01-10 Test Time: 16:23:26 Installer Molding And Trim: MG MEASUREMENT RESULTS: Intervals: Rate: 98 SD: 118 QRSD: 76 QT: 320 QTc: 408 [place]: P: 20 SD: 118 QRS: 85 T: 70 INTERPRETIVE STATEMENTS: Normal sinus rhythm Nonspecific ST and T wave abnormality Abnormal ECG Compared to ECG 01/05/2024 15:49:15 ST (T wave) deviation now present Sinus tachycardia no longer present Electronically Signed On 01-13-24 14:16:14 CDT by Maynor Franklin
--- NOTE | 2024-01-13 14:25 | EKG ---
Test Date: 2024-01-10 Test Time: 16:36:52 Community Health Agent: MEASUREMENT RESULTS: Intervals: Rate: 135 NM: 148 QRSD: 80 QT: 286 QTc: 429 [place]: P: 42 NM: 148 QRS: 72 T: 42 INTERPRETIVE STATEMENTS: Sinus tachycardia Nonspecific T wave abnormality Abnormal ECG Compared to ECG 01/10/2024 16:23:26 T-wave abnormality now present Sinus rhythm no longer present ST (T wave) deviation no longer present Electronically Signed On 01-13-24 14:16:11 CDT by Maynor Franklin
--- NOTE | 2024-01-13 14:25 | EKG ---
Test Date: 2024-01-10 Test Time: 16:51:06 Supervisor Chemical: MG MEASUREMENT RESULTS: Intervals: Rate: 112 MD: 126 QRSD: 78 QT: 318 QTc: 434 [place]: P: 26 MD: 126 QRS: 66 T: 54 INTERPRETIVE STATEMENTS: Sinus tachycardia Otherwise normal ECG Compared to ECG 01/10/2024 16:23:26 Sinus rhythm no longer present ST (T wave) deviation no longer present Electronically Signed On 01-13-24 14:16:10 CDT by Maynor Franklin
== END 2024-01-11 20:50 | disposition left against medical advice (07) | DRG 871 ==
LOC: ER 15:15 → 3RD-ICU 19:44
PROVIDERS: ADMIT Hospitalist; ATTEND Hospitalist
PROC: 5A0955A Assistance with Respiratory Ventilation, Greater than 96 Consecutive Hours, High Flow/Velocity Cannula (ICD-10-PCS; principal; 2024-01-05)
PROC: 5A09457 Assistance with Respiratory Ventilation, 24-96 Consecutive Hours, Continuous Positive Airway Pressure (ICD-10-PCS; 2024-01-06)
DX: A41.9 Sepsis, unspecified organism (principal); J18.9 Pneumonia, unspecified organism; J96.01 Acute respiratory failure with hypoxia; E87.20 Acidosis, unspecified; D68.9 Coagulation defect, unspecified; R65.20 Severe sepsis without septic shock; E87.6 Hypokalemia; D72.810 Lymphocytopenia; F17.210 Nicotine dependence, cigarettes, uncomplicated; Z11.52 Encounter for screening for COVID-19; Z79.52 Long term (current) use of systemic steroids; Z79.899 Other long term (current) drug therapy
CPT/HCPCS: 36415; 36600; 71045; 71275; 80048; 80053; 80061; 81001; 82805; 83605; 83735; 83880; 84100; 84132; 84145; 84484; 85025; 85610; 85730; 87040; 87045; 87046; 87324; 87389; 87804; 87811; 89055; 93005; 93306; 94010; 94640; 94660; 94760; 96365; 96366; 96367; 96368; 96375; 99285; C9113; J0696; J1650; J1940; J2270; J2405; J2920; J2930; J3475; J7030; J7050; J7512; J7613; J7614; J7644; Q9967

== ENCOUNTER 2024-08-21 08:30 | Emergency (ER) | payer BC, OTHER ==
[2024-08-21 09:22] LABS: SARS-CoV-2 Antigen CONTROL BLUE LINE VIS/BG OK; SARS-CoV-2 Antigen Rapid Res Negative (Negative)
[2024-08-21] MEDS ORDERED: ALBUTEROL 2.5 MG/3 ML NEB SOL ONE (09:31)
[2024-08-21] MEDS ORDERED: NA CHLORIDE 0.9% 1,000 ML ONE (09:31)
[2024-08-21] MEDS ORDERED: IPRATROPIUM BROM 0.5MG/2.5ML ONE (09:31)
[2024-08-21] MEDS ORDERED: METHYLPREDNISOLONE 125 MG INJ ONE (09:31)
[2024-08-21 09:55] LABS: Absolute Basophils 0.1 K/uL (0-0.5); Absolute Eosinophils 0.1 K/uL (0-0.5); Absolute Lymphocytes (CBC) 0.8 K/uL (0.7-4.9); Absolute Monocytes 0.5 K/uL (0.1-1.3); Absolute Neutrophil 3.3 K/uL (1.8-8.0); Basophils % 1.2 % (0-1.3); Eosinophils % 1.5 % (0-4.4); Hematocrit 43.4 % (39.6-49.0); Hemoglobin 14.5 g/dL (13.6-17.9); Lymphocytes % 16.7 % (15.3-44.8); MCH 32.5 pg (27.0-35.0); MCHC 33.5 g/dL (32.0-36.0); MCV 97.1 fL (80-100); MPV 9.1 fL (7.6-11.3); Monocytes % 11.1 % (3.3-12.3); Neutrophils % 69.5 % (41.7-73.7); Platelets 209 thou/uL (152-406); RBC Red Blood Cell Count 4.47 M/uL (4.33-5.43); Red Cell Distribution Width 12.9 % (12.1-15.2)
[2024-08-21 10:12] LABS: Albumin 3.7 g/dL (3.4-5.0); Albumin/Globulin Ratio 1.1 (1.1-1.8); Anion Gap 5.8 mEq/L (5.0-15.0); Bilirubin Total 0.7 mg/dL (0.2-1.0); Globulin 3.3 g/dL (2.3-3.5); Potassium 3.8 mEq/L (3.5-5.1)
--- NOTE | 2024-08-21 10:17 | EDPHYS ---
Physician Documentation [facility] Name: Joe Steiner Age: 24 yrs Sex: Male : 2000 Arrival Date: 08/21/2024 Time: 08:30 Bed 15 Private MD: ED Physician Mahesh May HPI: 08/21 10:14 This 24 yrs old Male presents to ER via Ambulatory with complaints of Flu ec2 Symptoms. 10:14 Patient arrives today for feeling unwell. Patient reports that he has been sick and ec2 progressively getting worse. Reports some shortness of breath as well as cough. Subjective fevers and chills, poor p.o. intake.. Historical: - Allergies: 08:54 No Known Allergies; hb - PMHx: 08:54 Asthma; hb - Immunization history:: Adult Immunizations up to date. - Infectious Disease History:: Denies. - Social history:: Smoking status: Reported history of juuling and/or vaping. ROS: 10:15 Constitutional: as per hpi ec2 Exam: 10:15 Constitutional: GEN: NAD Head: atraumatic Eyes: EOMI Ears: External ears are ec2 normal. CV: regular rate LUNGS: no respiratory distress, no wheezes, no rales, no rhonchi ABD: non-distended SKIN: no evidence of rashes MSK: no evidence of trauma Vital Signs: 08:52 BP 104 / 73; Pulse 54; Resp 18; Temp 98.4(O); Pulse Ox 97% on R/A; Weight 58.97 kg; hb Height 5 ft. 6 in. ; Pain 5/10; 09:17 BP 94 / 55; Pulse 52; Resp 15; Pulse Ox 99% ; ko1 10:17 BP 95 / 68; Pulse 66; Resp 15; Pulse Ox 100% on R/A; ko1 08:52 Body Mass Index 20.98 (58.97 kg, 167.64 cm) hb 08:52 Pain Scale: Adult hb MDM: 09:05 Medical Screening Exam initiated ec2 10:15 Data reviewed: vital signs. ED course: Patient arrives today for upper respiratory ec2 symptoms. Examination is remarkable for nontoxic individuals otherwise in no acute cardiopulmonary distress. Chest x-ray independently reviewed and interpreted by me, shows no acute intrathoracic process. Patient is positive for influenza.. 10:15 ED course: Lab work is nonactionable. Will discharge home with prescription for Tamiflu ec2 and steroids. Differential diagnoses considered include processes such as pneumonia, viral infection, electrolyte disturbance, dehydration.. 08/21 08:48 Order name: Influenza Screen (a \T\ B); Complete Time: 09:31 ec2 08/21 08:48 Order name: SARS RAPID; Complete Time: 09:31 ec2 08/21 09:26 Order name: CBC with Diff; Complete Time: 10:14 ec2 08/21 09:26 Order name: CMP; Complete Time: 10:14 ec2 08/21 08:48 Order name: CXR XRAY ec2 Administered Medications: 09:30 Drug: DuoNeb Nebulize (3:1) (2.5 mg - 0.5 mg) 3 ml Nebulizer once Route: Nebulizer; ko1 09:45 Follow up: Response: No adverse reaction ko1 09:40 Drug: NS 0.9% IV 1000 ml IV at 1000 ml once; to be given as a bolus over 60 minutes ko1 Route: IV; Rate: 1000 ml; Site: right antecubital; 10:16 Follow up: Response: No adverse reaction; IV Status: Completed infusion; IV Intake: ko1 1000ml 09:46 Drug: MethylPrednisoLONE IVP 125 mg IVP once Route: IVP; Site: right antecubital; ko1 10:01 Follow up: Response: No adverse reaction ko1 Disposition Summary: 08/21/24 10:16 Discharge Ordered Notes: Location: Home ec2 Condition: Stable ec2 Diagnosis - Influenza ec2 Followup: ec2 - With: Private Physician - When: - Reason: Re-evaluation by your physician Discharge Instructions: - Discharge Summary Sheet ec2 - Influenza, Adult, [id number] ec2 Forms: - Medication Reconciliation Form ec2 - Antibiotic Education ec2 - Prescription Opioid Use ec2 - Patient Portal Instructions ec2 - Leadership Thank You Letter ec2 Prescriptions: - Prednisone 20 mg Oral Tablet - take 2 tablets ORAL route once daily for 5 days; 10 tablet; Refills: 0, Product ec2 Selection Permitted - Tamiflu 75 mg Oral capsule - take 1 tablet ORAL route every 12 hours for 5 days; 10 tablet; Refills: 0, ec2 Product Selection Permitted Signatures: Dispatcher [employer] Daisy Smith, RN RN hb Rosalind Aceves, RN RN ko1 Mahesh May MD MD ec2
--- NOTE | 2024-08-21 10:17 | ER ---
Nurse's Notes [facility] Name: Joe Steiner Age: 24 yrs Sex: Male : 2000 Arrival Date: 08/21/2024 Time: 08:30 Bed 15 Private MD: Diagnosis: Influenza Presentation: 08/21 08:52 Chief complaint: N/V/D and painful cough x 5 days. Coronavirus screen: Client presents hb with at least one sign or symptom that may indicate coronavirus-19. Provider contacted for isolation considerations. Ebola Screen: No symptoms or risks identified at this time. Initial Sepsis Screen: Does the patient meet any 2 criteria? No. Patient's initial sepsis screen is negative. Does the patient have a suspected source of infection? No. Patient's initial sepsis screen is negative. Risk Assessment: Do you want to hurt yourself or someone else? Patient reports no desire to harm self or others. Onset of symptoms was August 17, 2024. 08:52 Method Of Arrival: Ambulatory 08:52 Acuity: OPAL 3 hb Triage Assessment: 08:55 General: Appears in no apparent distress. Behavior is calm. Pain: Pain currently is 5 hb out of 10 on a pain scale. Neuro: Level of Consciousness is awake, alert, obeys commands, Oriented to person, place, time, situation. Cardiovascular: Patient's skin is warm and dry. Respiratory: Reports pain with cough Respiratory effort is even, unlabored, Respiratory pattern is regular, symmetrical. 08:55 GI: Reports diarrhea, nausea, vomiting. hb Historical: - Allergies: 08:54 No Known Allergies; hb - PMHx: 08:54 Asthma; hb - Immunization history:: Adult Immunizations up to date. - Infectious Disease History:: Denies. - Social history:: Smoking status: Reported history of juuling and/or vaping. Screenin:17 [facility] ED Fall Risk Assessment (Adult) History of falling in the last 3 months, ko1 including since admission No falls in past 3 months (0 pts) Confusion or Disorientation No (0 pts) Intoxicated or Sedated No (0 pts) Impaired Gait No (0 pts) Mobility Assist Device Used No (0 pt) Altered Elimination No (0 pt) Score/Fall Risk Level 0 - 2 = Low Risk Oriented to surroundings, Maintained a safe environment, Educated pt \T\ family on fall prevention, incl call for assistance when getting out of bed, Assessed \T\ reinforced patient's understanding of fall precautions, Hourly rounding (assess needs \T\ fall precautionary measures) done. Abuse screen: Denies threats or abuse. Denies injuries from another. Nutritional screening: No deficits noted. Tuberculosis screening: No symptoms or risk factors identified. Assessment: 09:17 General: Appears in no apparent distress. Behavior is calm, cooperative, appropriate ko1 for age. Pain: Denies pain. Neuro: No deficits noted. Cardiovascular: No deficits noted. Respiratory: Reports cough that is. GI: No deficits noted. : No deficits noted. EENT: Reports nasal congestion. Derm: No deficits noted. Musculoskeletal: No deficits noted. Vital Signs: 08:52 BP 104 / 73; Pulse 54; Resp 18; Temp 98.4(O); Pulse Ox 97% on R/A; Weight 58.97 kg; hb Height 5 ft. 6 in. ; Pain 5/10; 09:17 BP 94 / 55; Pulse 52; Resp 15; Pulse Ox 99% ; ko1 10:17 BP 95 / 68; Pulse 66; Resp 15; Pulse Ox 100% on R/A; ko1 08:52 Body Mass Index 20.98 (58.97 kg, 167.64 cm) hb 08:52 Pain Scale: Adult hb ED Course: 08:32 Patient arrived in ED. mg5 08:54 Triage completed. hb 08:54 Arm band placed on. hb 08:59 Mahesh May MD is Attending Physician. ec2 09:00 COVID swab sent to lab. Flu and/or RSV swab sent to lab. ll1 09:05 Rosalind Aceves, RADHA is Primary Nurse. ko1 09:17 Patient has correct armband on for positive identification. Bed in low position. Call ko1 light in reach. Side rails up X 1. Provided Education on: labs. Client placed on continuous cardiac and pulse oximetry monitoring. NIBP monitoring applied. resident hall director on. Door closed. Noise minimized. Lights dimmed. Warm blanket given. Pillow given. 09:17 No provider procedures requiring assistance completed. ko1 09:45 Initial Neb Treatment Given as ordered Patient was instructed and evaluated on ko1 procedure Patient tolerated procedure well without adverse effect. 09:45 Inserted saline lock: 20 gauge in right antecubital area, using aseptic technique. ko1 Blood collected. Flushed with 10 mL NS. 09:47 CMP Sent. ko1 09:47 CBC with Diff Sent. ko1 09:59 CXR XRAY In Process Unspecified. EDMS 10:25 IV discontinued, intact, bleeding controlled, No redness/swelling at site. Pressure ko1 dressing applied. Administered Medications: 09:30 Drug: DuoNeb Nebulize (3:1) (2.5 mg - 0.5 mg) 3 ml Nebulizer once Route: Nebulizer; ko1 09:45 Follow up: Response: No adverse reaction ko1 09:40 Drug: NS 0.9% IV 1000 ml IV at 1000 ml once; to be given as a bolus over 60 minutes ko1 Route: IV; Rate: 1000 ml; Site: right antecubital; 10:16 Follow up: Response: No adverse reaction; IV Status: Completed infusion; IV Intake: ko1 1000ml 09:46 Drug: MethylPrednisoLONE IVP 125 mg IVP once Route: IVP; Site: right antecubital; ko1 10:01 Follow up: Response: No adverse reaction ko1 Medication: 09:17 VIS not applicable for this client. ko1 Intake: 10:16 IV: 1000ml; Total: 1000ml. ko1 Outcome: 10:16 Discharge ordered by . ec2 10:25 Discharged to home ambulatory, ko1 10:25 Condition: stable 10:25 Discharge instructions given to patient, Instructed on discharge instructions, follow up and referral plans. medication usage, Demonstrated understanding of instructions, follow-up care, medications, Prescriptions given X 2, 10:29 Patient left the ED. ko1 Signatures: Dispatcher [employer] EDNY Daisy Carr RN RN hb Lewis, Lynsay, RN RN ll1 Rosalind Aceves RN RN ko1 Josee Burnett 5 Mahesh May MD MD ec2 Corrections: (The following items were deleted from the chart) 08:55 08:55 Neuro: Level of Consciousness is awake, alert, obeys commands, Oriented to hb person, place, time, situation, hb 11:14 09:17 Patient did not have IV access during this emergency room visit. ko1 ko1
[2024-08-21 10:36] VITALS: TEMP 98.4
[2024-08-21 10:39] VITALS: BP 95/68; O2SAT 100
--- NOTE | 2024-08-21 10:42 | RAD REPORT ---
EXAMINATION: ONE VIEW CHEST XR CLINICAL INDICATION: Male, 24 years old.,COUGH TECHNIQUE: Frontal chest projection is submitted. Examination is limited by patient positioning and t echnique. COMPARISON: 01/10/2024 FINDINGS: The lungs are well inflated and clear. No pneumothorax or sizable effusion. The heart is normal in s ize. Mediastinal contours are unremarkable. IMPRESSION: No acute intrathoracic abnormalities.
== END 2024-08-21 10:29 | disposition home or self-care (01) ==
LOC: ER 08:30
DX: J11.1 Influenza due to unidentified influenza virus with other respiratory manifestations (principal); Z11.52 Encounter for screening for COVID-19
CPT/HCPCS: 96361; 85025; 36415; 80053; 87804 ×2; 71045; 94640; 96374; 99285; 87811; J7613; J7644; J2919; J7030